=== PATIENT | female | born 1950 | race Hispanic/Latino ===

== ENCOUNTER 2016-08-17 17:34 | Inpatient (IN) | payer MEDICARE ==
--- NOTE | 2016-08-17 18:04 | Emergency Department Report ---
ED Palpitations HPI - General Chief Complaint: Arrhythmia/Palpitations Stated Complaint: HEART RACING Time Seen by Provider: 08/17/16 17:56 Source: patient Mode of arrival: Ambulatory Limitations: No Limitations - History of Present Illness Initial Comments: Patient is a 66-year-old female with history of diabetes, hypertension, A. fib, CABG with a permanent pacemaker presenting today because of palpitations. Patient states that she often gets these symptoms are not completely ER before to receive IV medication. She has been having multiple episodes these about once a week and usually improves with taking her metoprolol for today it has persisted and gotten worse. She also is has associated nausea without chest pain or shortness of breath. - Related Data Home Medications Medication Instructions Recorded Confirmed Last Taken Omeprazole 20 mg PO DAILY 01/10/16 06/02/16 06/02/16 Previous Rx's Medication Instructions Recorded Last Taken Type Glimepiride [Amaryl] 2 mg PO QAM #30 tablet 01/11/16 06/02/16 Rx Lisinopril [Zestril TAB] 20 mg PO DAILY #30 tablet 01/11/16 06/02/16 Rx metFORMIN [Glucophage] 1,000 mg PO BID #60 tablet 01/11/16 06/02/16 Rx Aspirin [Aspirin BABY CHEW TAB] 81 mg PO QDAY #30 tab.chew 05/04/16 06/02/16 Rx Dabigatran [Pradaxa] 150 mg PO BID #60 capsule 05/04/16 06/02/16 Rx Metoprolol [Lopressor TAB] 50 mg PO BID #60 tablet 05/04/16 06/02/16 Rx Ciprofloxacin HCl [Ciprofloxacin 500 mg PO BID #10 tablet 06/04/16 Unknown Rx TAB] Gabapentin [Neurontin] 300 mg PO TID #90 capsule 06/04/16 Unknown Rx HYDROcodone/APAP 7.5-325 [[place] 1 each PO Q6H PRN #12 tablet 06/04/16 Unknown Rx 7.5-325 mg TAB] Colchicine [Colcrys] 0.6 mg PO BID #10 tablet 06/05/16 Unknown Rx Allergies Allergy/AdvReac Type Severity Reaction Status Date / Time gabapentin Allergy Unknown Verified 08/17/16 17:53 ED Review of Systems ROS: Stated complaint: HEART RACING Other details as noted in HPI Comment: All other systems reviewed and negative Constitutional: malaise. denies: chills, fever ENT: denies: throat pain Respiratory: denies: cough Cardiovascular: palpitations. denies: chest pain Gastrointestinal: nausea. denies: abdominal pain, vomiting Skin: denies: rash Psychiatric: denies: anxiety ED Past Medical Hx - Past Medical History Hx Hypertension: Yes Hx Heart Attack/AMI: No Hx Congestive Heart Failure: Yes Hx Diabetes: Yes Hx Deep Vein Thrombosis: No Hx Pulmonary Embolism: No Hx GERD: Yes Hx Liver Disease: No Hx Renal Disease: No Hx Sickle Cell Disease: No Hx Arthritis: Yes Hx Seizures: Yes Hx Asthma: No Hx COPD: No Hx Tuberculosis: No Hx Dementia: No Hx HIV: No Additional medical history: Pacemaker - Surgical History Hx Coronary Stent: Yes Hx Open Heart Surgery: Yes (CABG 2013) Hx Pacemaker: Yes Hx Internal Defibrillator: Yes Hx Cholecystectomy: No Hx Appendectomy: No Hx Breast Surgery: No Additional Surgical History: CABG x 4, hysterectomy. by pass x 4 at [facility] - Social History Smoking Status: Never Smoker - Medications Home Medications: Home Medications Medication Instructions Recorded Confirmed Last Taken Type Omeprazole 20 mg PO DAILY 01/10/16 06/02/16 06/02/16 History Glimepiride [Amaryl] 2 mg PO QAM #30 tablet 01/11/16 06/02/16 06/02/16 Rx Lisinopril [Zestril TAB] 20 mg PO DAILY #30 tablet 01/11/16 06/02/16 06/02/16 Rx metFORMIN [Glucophage] 1,000 mg PO BID #60 tablet 01/11/16 06/02/16 06/02/16 Rx Aspirin [Aspirin BABY CHEW TAB] 81 mg PO QDAY #30 tab.chew 05/04/16 06/02/16 Rx Dabigatran [Pradaxa] 150 mg PO BID #60 capsule 05/04/16 06/02/16 06/02/16 Rx Metoprolol [Lopressor TAB] 50 mg PO BID #60 tablet 05/04/16 06/02/16 06/02/16 Rx Ciprofloxacin HCl [Ciprofloxacin 500 mg PO BID #10 tablet 06/04/16 Unknown Rx TAB] Gabapentin [Neurontin] 300 mg PO TID #90 capsule 06/04/16 Unknown Rx HYDROcodone/APAP 7.5-325 [[place] 1 each PO Q6H PRN #12 tablet 06/04/16 Unknown Rx 7.5-325 mg TAB] Colchicine [Colcrys] 0.6 mg PO BID #10 tablet 06/05/16 Unknown Rx ED Physical Exam - General Limitations: No Limitations - Head Head exam: Present: atraumatic - Eye Eye exam: Present: normal appearance - ENT ENT exam: Present: normal exam - Respiratory Respiratory exam: Present: normal lung sounds bilaterally - Cardiovascular Cardiovascular Exam: Present: other (tachycardic, regular) - GI/Abdominal GI/Abdominal exam: Present: soft. Absent: distended, tenderness - Neurological Exam Neurological exam: Present: alert, oriented X3 - Psychiatric Psychiatric exam: Present: normal affect - Skin Skin exam: Present: intact ED Course Vital Signs 08/17/16 08/17/16 08/17/16 17:47 17:54 18:00 Temperature 97.7 F Pulse Rate 140 H 137 H 138 H Respiratory 18 11 L 19 Rate Blood Pressure 147/108 163/108 Blood Pressure [Right] O2 Sat by Pulse 98 97 Oximetry 08/17/16 08/17/16 08/17/16 18:03 18:15 18:33 Temperature 98.5 F Pulse Rate 138 H 140 H 89 Respiratory 15 22 11 L Rate Blood Pressure 163/108 115/63 Blood Pressure 168/100 [Right] O2 Sat by Pulse 98 98 100 Oximetry 08/17/16 08/17/16 08/17/16 18:35 18:37 18:41 Temperature Pulse Rate 83 80 81 Respiratory 14 16 Rate Blood Pressure 115/63 115/63 115/63 Blood Pressure [Right] O2 Sat by Pulse 99 100 Oximetry 08/17/16 08/17/16 08/17/16 18:59 19:01 19:30 Temperature 98.8 F Pulse Rate 109 H 79 89 Respiratory 15 15 14 Rate Blood Pressure 115/63 115/63 Blood Pressure 115/63 [Right] O2 Sat by Pulse 99 99 99 Oximetry 08/17/16 20:35 Temperature Pulse Rate 139 H Respiratory Rate Blood Pressure 131/91 Blood Pressure [Right] O2 Sat by Pulse Oximetry - Reevaluation(s) Reevaluation #1: 08/17/16 19:05 She reassessed at bedside. Heart rate has improved now to 80s. Repeat EKG shows atrial flutter with rate controlled at 80, appears to be paced ED Medical Decision Making - Lab Data Result diagrams: 08/17/16 18:09 08/17/16 18:09 - Medical Decision Making EKG shows tachycardia at rate of 138, difficult to tell if this is atrial flutter with RVR or sinus tachycardia. There are ST depressions in the lateral and inferior leads without any reciprocal changes, no ST elevations Previous admission patient was able to break her tachycardia with IV Cardizem IV, give Cardizem IV 20 mg, labs and chest x-ray as well as UA Will admit due to atrial flutter with rvr Critical Care Time: Yes Critical care time in (mins) excluding proc time.: 30 Critical care attestation.: If time is entered above; I have spent that time in minutes in the direct care of this critically ill patient, excluding procedure time. Critical Care Time: 30 mins ED Disposition Clinical Impression: Atrial flutter with rapid ventricular response Disposition: OP ADMITTED IP TO THIS HOSP Is pt being admited?: Yes Does the pt Need Aspirin: No Condition: Serious Time of Disposition: 21:45 (Spoke to Dr. Donaldson, Hospitalist)
[2016-08-17] MEDS ORDERED: CARDIZEM IV ONE (18:06)
[2016-08-17 18:24] LABS: Basophils % (Auto) 0.3 % (0.0-1.8); Eosinophils % (Auto) 0.6 % (0.0-4.3); Hematocrit 34.8 % (30.3-42.9); Hemoglobin 11.3 gm/dl (10.1-14.3); Mean Corpuscular HGB Conc 33 % (30-34); Mean Corpuscular Hemoglobin 29 pg (28-32); Mean Corpuscular Volume 90 fl (79-97); Platelet Count 261 K/mm3 (140-440); Red Blood Count 3.86 M/mm3 (3.65-5.03); Red Cell Distribution Width 15.3 % (13.2-15.2); White Blood Count 8.9 K/mm3 (4.5-11.0)
[2016-08-17 18:46] LABS: BUN/Creatinine Ratio 16.36; Blood Urea Nitrogen 18 mg/dL (7-17); Calcium 9.3 mg/dL (8.4-10.2); Carbon Dioxide 22 mmol/L (22-30); Chloride 99.9 mmol/L (98-107); Glucose 160 mg/dL (65-100); Potassium 4.7 mmol/L (3.6-5.0); Sodium 139 mmol/L (137-145)
[2016-08-17 18:47] LABS: Anion Gap 22 mmol/L
[2016-08-17] MEDS ORDERED: NACL 0.9% 500 ML 500 ML ONE (19:00)
[2016-08-17] MEDS ORDERED: CARDIZEM PO ONE (19:06)
[2016-08-17] MEDS ORDERED: NACL 0.9% 500 ML 500 ML IV SCH (20:00)
[2016-08-17] MEDS ORDERED: TYLENOL PO ONE (22:34)
--- NOTE | 2016-08-17 23:18 | Admit Criteria Form ---
Admission Criteria Documentation: CARDIAC ARRHYTHMIA Clinical Indications for Inpatient Care (Place 'X' for any and all applicable criteria): Ongoing inpatient care for cardiac arrhythmia needed as indicated by ANY ONE of the following(1)(2)(3)(4)(7) : [ X]I. Vital sign abnormality secondary to arrhythmia [ ]II. Patient has implantable cardioverter-defibrillator that has fired more than once within past 24 hours or needs immediate adjustment of settings that cannot be done other than in inpatient setting. [ ]III. Altered mental status [ ]IV. Resuscitated or aborted ventricular fibrillation or ventricular tachycardia in patient without implantable cardioverter- defibrillator [ ]V. Initiation of antiarrhythmic drug therapy is needed in patient at high risk of adverse effects as indicated by ANY ONE of the following: [ ]a) Significant structural heart disease (e.g., reduced ejection fraction, congenital heart disease, valvular heart disease) [ ]b) Prolonged QT interval [ ]c) Underlying sinus node or atrioventricular conduction disturbances [ ]d) Need for treatment with antiarrhythmic drugs that have significant proarrhythmic potential (e.g., dofetilide, sotalol, procainamide) [ ]. Acute myocardial ischemia as a consequence or suspected cause of arrhythmia [ ]VII. Syncope secondary to arrhythmia [ ]VIII. Heart failure (eg, pulmonary edema) secondary to arrhythmia) (26)(27) [ ]IX. Patient has implantable cardioverter defibrillator that has fired more than once within past 24hr or needs immediate adjustment of settings that cannot be done other than in inpatient setting.(8) [ ]X. Sustained (30 seconds or more of ventricular rhythm at more than 100 beats per minute) ventricular tachycardia and ANY ONE of the following: [ ]a) No previous known history of sustained ventricular tachycardia [ ]b) Structural heart disease (eg, reduced ejection fraction, hypertrophic cardiomyopathy, severe valvular disease) and without implantable cardioverter-defibrillator(24)(32)(33) [ ]c) Need for treatment of drug toxicity (eg, digitalis toxicity)(34 ) [ ]d) Need for electrical cardioversion Extended stay beyond goal length of stay may be needed for [ ]a) Hemodynamic stability [ ]b) Arrhythmia evaluation completed [ ]c) Reversible causes of arrhythmia eliminated or mitigated [ ]d) Specific antiarrhythmia treatment initiated as appropriate [ ]e) Anticoagulation requirements addressed (or anticoagulation not required). [ ]f) Medical comorbidities manageable at lower level of care The original [facility] content created by [facility] has been revised. The portions of the content which have been revised are identified through the use of italic text or in bold, and [facility] has neither reviewed nor approved the modified material. All other unmodified content is copyright [facility]. Please see references footnoted in the original [facility] edition 2016 Admission Criteria Met: Yes
[2016-08-18] MEDS ORDERED: D50W (25GM) IV PRN (00:29)
--- NOTE | 2016-08-18 00:38 | History and Physical Report ---
History of Present Illness Date of examination: 08/17/16 Date of admission: 08/17/2014 Chief complaint: Palpitations History of present illness: Patient is a 66-year-old female with history of diabetes, hypertension, A. fib, CABG with a permanent pacemaker presenting today because of palpitations. Patient stated the symptoms started she took her metoprolol and lisinopril which didn't help her much. She called her kst operator's office and recommended her to come to emergency department. She also is has associated nausea without chest pain or shortness of breath. She stated she had similar symptoms previously and was admitted and treated with IV medications. In the emergency department had was controlled. Denied fevers, chills. Patient is on Pradaxa. REVIEW OF SYSTEMS: GENERAL: no weight change, no fatigue, no fever HEAD: no head ache EYES: no blurry vision, no acute visual loss EARS: no hearing loss, no discharge, no earache NOSE: no stuffiness, no sneezing, no discharge MOUTH, THROAT AND NECK: no bleeding gums, no sore throat, no swollen neck CARDIAC: no dyspnea on exertion, no orthopnea, no PND, no edema, no chest pain RESPIRATORY: no shortness of breath, no wheeze, no cough, no sputum, no hemoptysis, no asthma GI: no decreased appetite, no nausea, no vomiting, no dysphagia, no diarrhea, no constipation, no abdominal pain URINARY: no change in frequency, no urgency, no polyuria, no hematuria, no incontinence MUSCULOSKELETAL: no muscle weakness, no pain, no joint stiffness NEUROLOGIC: no loss of sensation/numbness, no tingling, no tremors, no weakness/ paralysis HEMATOLOGIC: no anemia, no easy bruising SKIN: no rashes ENDOCRINE: no heat/cold intolerance, no polyuria, no polydipsia, no thyroid problems, no diabetes PSYCHIATRIC: no anxiety, no depression, no suicidal ideations Past History Past Medical History: atrial fib, diabetes, other (hiatal hernia) Past Surgical History: CABG, Other (pacemaker placement) Social history: full code. denies: smoking, alcohol abuse, prescription drug abuse, IV drug use Family history: cancer (mother), stroke (mother) Medications and Allergies Allergies Allergy/AdvReac Type Severity Reaction Status Date / Time gabapentin Allergy Unknown Verified 08/17/16 17:53 Home Medications Medication Instructions Recorded Confirmed Last Taken Type Omeprazole 20 mg PO DAILY 01/10/16 08/18/16 06/02/16 History metFORMIN [Glucophage] 1,000 mg PO BID #60 tablet 01/11/16 08/18/16 06/02/16 Rx Aspirin [Aspirin BABY CHEW TAB] 81 mg PO QDAY #30 tab.chew 05/04/16 08/18/16 Rx Dabigatran [Pradaxa] 150 mg PO BID #60 capsule 05/04/16 08/18/16 06/02/16 Rx Colchicine [Colcrys] 0.6 mg PO BID #10 tablet 06/05/16 08/18/16 Unknown Rx Glimepiride [Amaryl] 10 mg PO QAM 08/18/16 08/18/16 Unknown History Lisinopril [Zestril] 20 mg PO BID 08/18/16 08/18/16 Unknown History Metoprolol [Lopressor TAB] 50 mg PO QHS 08/18/16 08/18/16 Unknown History Active Meds: Active Medications Acetaminophen/Hydrocodone Bitart ([place] 7.5/325) 1 each PO Q6H PRN PRN Reason: Pain, Moderate (4-6) Aspirin (Baby Aspirin) 81 mg PO QDAY [facility] Colchicine (Colcrys) 0.6 mg PO BID [facility] Dabigatran (Pradaxa) 150 mg PO BID [facility] TO [facility] Dextrose (D50w (25gm)) 50 ml IV PRN PRN PRN Reason: Hypoglycemia Glimepiride (Amaryl) 2 mg PO QAM [facility] Sodium Chloride (Nacl 0.9% 500 Ml) 500 mls @ 250 mls/hr IV DIRECT [facility] Last Admin: 08/17/16 20:38 Dose: 250 mls/hr Insulin Aspart (Novolog) 0 units SUB-Q QHS [facility] PRN Reason: Protocol Lisinopril (Zestril) 20 mg PO DAILY [facility] Metoprolol Tartrate (Lopressor) 50 mg PO BID [facility] Miscellaneous Medication (Omeprazole) 20 mg PO DAILY [facility] Exam - Physical Exam Narrative exam: Not in cardiopulmonary distress. The patient appeared well nourished and normally developed. Vital signs as documented. Head exam is unremarkable. No scleral icterus . Neck is without jugular venous distension, thyromegaly, or carotid bruits. Lungs are clear to auscultation. Cardiac exam reveals an irregularly irregular heart rate. Abdominal exam reveals normal bowel sounds, no masses, no organomegaly and no aortic enlargement. Extremities are nonedematous and both femoral and pedal pulses are normal. RECORD SEARCHER: Alert and oriented 3. No focal weakness. - Constitutional Vitals: Temp Pulse Resp BP Pulse Ox 98.8 F 139 H 14 131/91 99 08/17/16 19:30 08/17/16 20:35 08/17/16 19:30 08/17/16 20:35 08/17/16 19:30 Results - Labs CBC & Chem 7: 08/17/16 18:09 08/17/16 18:09 Labs: Laboratory Last Values WBC 8.9 K/mm3 (4.5-11.0) 08/17/16 18:09 RBC 3.86 M/mm3 (3.65-5.03) 08/17/16 18:09 Hgb 11.3 gm/dl (10.1-14.3) 08/17/16 18:09 Hct 34.8 % (30.3-42.9) 08/17/16 18:09 MCV 90 fl (79-97) 08/17/16 18:09 MCH 29 pg (28-32) 08/17/16 18:09 MCHC 33 % (30-34) 08/17/16 18:09 RDW 15.3 % (13.2-15.2) H 08/17/16 18:09 Plt Count 261 K/mm3 (140-440) 08/17/16 18:09 Lymph % (Auto) 31.9 % (13.4-35.0) 08/17/16 18:09 [place] % (Auto) 6.0 % (0.0-7.3) 08/17/16 18:09 Eos % (Auto) 0.6 % (0.0-4.3) 08/17/16 18:09 Baso % (Auto) 0.3 % (0.0-1.8) 08/17/16 18:09 Lymph # 2.8 K/mm3 (1.2-5.4) 08/17/16 18:09 [place] # 0.5 K/mm3 (0.0-0.8) 08/17/16 18:09 Eos # 0.1 K/mm3 (0.0-0.4) 08/17/16 18:09 Baso # 0.0 K/mm3 (0.0-0.1) 08/17/16 18:09 Seg Neutrophils % 61.2 % (40.0-70.0) 08/17/16 18:09 Seg Neutrophils # 5.5 K/mm3 (1.8-7.7) 08/17/16 18:09 Sodium 139 mmol/L (137-145) 08/17/16 18:09 Potassium 4.7 mmol/L (3.6-5.0) 08/17/16 18:09 Chloride 99.9 mmol/L (98-107) 08/17/16 18:09 Carbon Dioxide 22 mmol/L (22-30) 08/17/16 18:09 Anion Gap 22 mmol/L 08/17/16 18:09 BUN 18 mg/dL (7-17) H 08/17/16 18:09 Creatinine 1.1 mg/dL (0.7-1.2) 08/17/16 18:09 Estimated GFR 50 ml/min 08/17/16 18:09 BUN/Creatinine Ratio 16.36 % 08/17/16 18:09 Glucose 160 mg/dL (65-100) H 08/17/16 18:09 POC Glucose 160 (70-105) H 08/17/16 22:38 Calcium 9.3 mg/dL (8.4-10.2) 08/17/16 18:09 Troponin T < 0.010 ng/mL (0.00-0.029) 08/17/16 23:46 - Imaging and Cardiology EKG: image reviewed (irregularly irregular heartrate, paced rhythm.) Assessment and Plan Assessment and plan: A.fib/ flutter with RVR Diabetes mellitus type 2 Gout Neuropathy HTN - Patient was given a dose of IV Cardizem which controls her HR - Presumed her met home medications - Hold metformin, sliding scale insulin - Cardiology consult DVT prophylaxis: She is already on Pradaxa Disposition: Admitted to telemetry unit Advance Directives: Yes VTE prophylaxis?: Chemical Plan of care discussed with patient/family: Yes
[2016-08-18] MEDS: PRADAXA PO SCH ×3 (01:40→22:03)
[2016-08-18 03:53] LABS: Bacteria,Urine 4+ /HPF (Negative); Bilirubin,Urine NEG (Negative); Blood,Urine NEG (Negative); Ketones,Urine NEG (Negative); Leukocyte Esterase,Urine SM (Negative); Mucus,Urine FEW /HPF; Nitrite,Urine NEG (Negative); Protein,Urine <15 mg/dL mg/dL (Negative); Urobilinogen,Urine < 2.0 mg/dL (<2.0)
[2016-08-18] MEDS ORDERED: CARDIZEM PO ONE (05:08)
[2016-08-18] MEDS: AMARYL PO SCH (08:30)
--- NOTE | 2016-08-18 09:25 | XRay Report ---
AP CHEST :08/17/16 17:34:00 CLINICAL: Palpitations. Shortness of breath. COMPARISON:06/02/16 FINDINGS: The heart is normal size. Pacer leads in heart. Normal pulmonary vessels. The lungs are normally expanded and clear. Median sternotomy wires. IMPRESSION: No acute cardiopulmonary process.
[2016-08-18] MEDS: BABY ASPIRIN PO SCH (09:35)
[2016-08-18] MEDS ORDERED: COLCRYS PO SCH (10:00)
[2016-08-18] MEDS: ZESTRIL PO SCH (10:00)
[2016-08-18] MEDS: LOPRESSOR PO SCH ×2 (10:00→22:10)
[2016-08-18] MEDS: PROTONIX PO SCH (10:56)
--- NOTE | 2016-08-18 13:15 | Consultation ---
History of Present Illness Consult date: 08/18/16 Requesting physician: SCARLETT TSE Consult reason: atrial fibrillation History of present illness: This is a 66-year-old female with a past medical history history of coronary artery disease status post CABG in 2013, paroxysmal atrial fibrillation, sick sinus syndrome with dual-chamber permanent pacemaker, peripheral arterial disease with left carotid stenosis, hypertension, diabetes, obesity, gout, and hyperlipidemia who presents to the emergency department complaining of palpitations and chest discomfort. A 12 EKG revealed atrial fibrillation with a rapid ventricular response. The patient has been taken a beta kaylynn she is also on oral anticoagulation. She reports that she has been compliant with her medications. The chest x-ray did not reveal any infiltrates or effusions. Past History Past Medical History: atrial fib, diabetes, other (hiatal hernia) Past Surgical History: CABG, Other (pacemaker placement) Social history: full code. denies: smoking, alcohol abuse, prescription drug abuse, IV drug use Family history: cancer (mother), stroke (mother) Medications and Allergies Allergies Allergy/AdvReac Type Severity Reaction Status Date / Time gabapentin Allergy Unknown Verified 08/17/16 17:53 Home Medications Medication Instructions Recorded Confirmed Last Taken Type Omeprazole 20 mg PO DAILY 01/10/16 08/18/16 06/02/16 History metFORMIN [Glucophage] 1,000 mg PO BID #60 tablet 01/11/16 08/18/16 06/02/16 Rx Aspirin [Aspirin BABY CHEW TAB] 81 mg PO QDAY #30 tab.chew 05/04/16 08/18/16 Rx Dabigatran [Pradaxa] 150 mg PO BID #60 capsule 05/04/16 08/18/16 06/02/16 Rx Colchicine [Colcrys] 0.6 mg PO BID #10 tablet 06/05/16 08/18/16 Unknown Rx Glimepiride [Amaryl] 10 mg PO QAM 08/18/16 08/18/16 Unknown History Lisinopril [Zestril] 20 mg PO BID 08/18/16 08/18/16 Unknown History Metoprolol [Lopressor TAB] 50 mg PO QHS 08/18/16 08/18/16 Unknown History Active Meds: Active Medications Acetaminophen/Hydrocodone Bitart ([place] 7.5/325) 1 each PO Q6H PRN PRN Reason: Pain, Moderate (4-6) Aspirin (Baby Aspirin) 81 mg PO QDAY [facility] Last Admin: 08/18/16 09:35 Dose: 81 mg Colchicine (Colcrys) 0.6 mg PO BID [facility] Last Admin: 08/18/16 09:36 Dose: 0.6 mg Dabigatran (Pradaxa) 150 mg PO BID [facility] Last Admin: 08/18/16 09:36 Dose: 150 mg Dextrose (D50w (25gm)) 50 ml IV PRN PRN PRN Reason: Hypoglycemia Glimepiride (Amaryl) 2 mg PO QAMDIAB [facility] Last Admin: 08/18/16 08:30 Dose: 2 mg Sodium Chloride (Nacl 0.9% 500 Ml) 500 mls @ 250 mls/hr IV DIRECT [facility] Last Admin: 08/17/16 20:38 Dose: 250 mls/hr Insulin Aspart (Novolog) 0 units SUB-Q QHS [facility] PRN Reason: Protocol Lisinopril (Zestril) 20 mg PO DAILY [facility] Last Admin: 08/18/16 10:00 Dose: 20 mg Metoprolol Tartrate (Lopressor) 50 mg PO BID [facility] Last Admin: 08/18/16 10:00 Dose: 50 mg Pantoprazole Sodium (Protonix) 20 mg PO DAILY [facility] Last Admin: 08/18/16 10:56 Dose: 20 mg Review of Systems Constitutional: no weight loss, no weight gain, no fever, no chills Ears, nose, mouth and throat: no ear pain, no ear discharge Breasts: deferred Cardiovascular: chest pain, palpitations, no orthopnea Respiratory: no shortness of breath, no dyspnea on exertion Gastrointestinal: no abdominal pain, no nausea, no vomiting Genitourinary Female: no urinary frequency, no urgency Rectal: no pain, no incontinence Musculoskeletal: no neck stiffness, no neck pain Integumentary: no rash, no pruritis Neurological: no paralysis, no weakness, no numbness Psychiatric: no anxiety, no memory loss Physical Examination Vital Signs Temp Pulse Resp BP Pulse Ox 97.7 F 140 H 18 147/108 98 08/17/16 17:47 08/17/16 17:47 08/17/16 17:47 08/17/16 17:47 08/17/16 17:47 General appearance: no acute distress HEENT: Positive: PERRL, EOMI Neck: Positive: neck supple, trachea midline Cardiac: Positive: irregularly irregular, Tachycardia Lungs: Positive: Normal Exam, clear to auscultation, Normal Breath Sounds Neuro: Positive: Grossly Intact, Cranial Nerve 2-12 Intact Abdomen: Positive: Unremarkable, Soft, Active Bowel Sounds Skin: Negative: Rash, Suspicious Lesions Extremities: Present: normal, warm. Absent: edema Results 08/17/16 18:09 08/17/16 18:09 - Imaging and Cardiology Echo: report reviewed (04/20: EF 55%, mild MR) Cardiac cath: report reviewed ([facility] 04/20: SHIELDS-->LAD: patent, SVG--> PDA: patent and OM mid 60% FFR.92, severe triple vessel disease) Assessment and Plan 66-year-old female with a past medical history of coronary artery disease status post CABG, carotid stenosis, sick sinus syndrome, paroxysmal atrial fibrillation, permanent pacemaker, hypertension, hyperlipidemia, diabetes, and obesity CAD S/P CABG '14 PAD LEFT CAROTID STENOSIS SSS/PAF S/P PPM HYPERTENSION HYPERLIPIDEMIA DIABETES OBESITY Admitted with intermittent episodes of A2 fibrillation versus atrial flutter with a rapid ventricular response. At this point I'm recommending that the patient continue her beta kaylynn we will also start amiodarone 200 mg daily. Will also obtain liver function tests and thyroid studies.
--- NOTE | 2016-08-18 15:24 | Progress Note ---
Assessment and Plan Assessment and plan: A.fib/ flutter with RVR Diabetes mellitus type 2 h/o Gout diabetic Neuropathy HTN, benign essential Plan: - Patient was given a dose of IV Cardizem in thr ER - resume her home medications - Hold metformin, continue sliding scale of insulin - Cardiology started on amioderone DVT prophylaxis: She is already on Pradaxa Disposition: home when medically stable and clear by cardiology History Interval history: Patient seen and examined. Medical records and medication list reviewed. No acute event overnight noted by the RN. Patient continue to c/o palpitation. Patient is tolerating diet. started on amioderone by grievance and appeals specialist Discussed plan of care at bedside with patient. Hospitalist Physical - Physical exam Narrative exam: GENERAL: elderly female lying on bed appeared to be in no discomfort. HEENT: Normocephalic. Atraumatic. No conjunctival congestion or icterus. Patient has moist mucous membranes. NECK: Supple. Trachea midline. CHEST/LUNGS: Clear to auscultated bilaterally, breathing nonlabored. No wheezes crackles or rhonchi. HEART/CARDIOVASCULAR: irregular in rate and rhythm. S1 and S2 positive. ABDOMEN: Abdomen is soft, nontender. Patient has normal bowel sounds. SKIN: There is no rash. Warm and dry. NEURO: No focal motor deficit. Follows command. MUSCULOSKELETAL: No joint effusion or tenderness. EXTRIMITY: No edema, no cyanosis or clubbing. PSYCH: Cooperative. - Constitutional Vitals: Temp Pulse Resp BP Pulse Ox 98.3 F 85 15 128/89 96 08/18/16 10:01 08/18/16 14:42 08/18/16 14:01 08/18/16 14:01 08/18/16 14:01 General appearance: Present: no acute distress Results - Labs CBC & Chem 7: 08/17/16 18:09 08/19/16 07:56 Labs: Laboratory Last Values WBC 8.9 K/mm3 (4.5-11.0) 08/17/16 18:09 RBC 3.86 M/mm3 (3.65-5.03) 08/17/16 18:09 Hgb 11.3 gm/dl (10.1-14.3) 08/17/16 18:09 Hct 34.8 % (30.3-42.9) 08/17/16 18:09 MCV 90 fl (79-97) 08/17/16 18:09 MCH 29 pg (28-32) 08/17/16 18:09 MCHC 33 % (30-34) 08/17/16 18:09 RDW 15.3 % (13.2-15.2) H 08/17/16 18:09 Plt Count 261 K/mm3 (140-440) 08/17/16 18:09 Lymph % (Auto) 31.9 % (13.4-35.0) 08/17/16 18:09 [place] % (Auto) 6.0 % (0.0-7.3) 08/17/16 18:09 Eos % (Auto) 0.6 % (0.0-4.3) 08/17/16 18:09 Baso % (Auto) 0.3 % (0.0-1.8) 08/17/16 18:09 Lymph # 2.8 K/mm3 (1.2-5.4) 08/17/16 18:09 [place] # 0.5 K/mm3 (0.0-0.8) 08/17/16 18:09 Eos # 0.1 K/mm3 (0.0-0.4) 08/17/16 18:09 Baso # 0.0 K/mm3 (0.0-0.1) 08/17/16 18:09 Seg Neutrophils % 61.2 % (40.0-70.0) 08/17/16 18:09 Seg Neutrophils # 5.5 K/mm3 (1.8-7.7) 08/17/16 18:09 Sodium 139 mmol/L (137-145) 08/17/16 18:09 Potassium 4.7 mmol/L (3.6-5.0) 08/17/16 18:09 Chloride 99.9 mmol/L (98-107) 08/17/16 18:09 Carbon Dioxide 22 mmol/L (22-30) 08/17/16 18:09 Anion Gap 22 mmol/L 08/17/16 18:09 BUN 18 mg/dL (7-17) H 08/17/16 18:09 Creatinine 1.1 mg/dL (0.7-1.2) 08/17/16 18:09 Estimated GFR 50 ml/min 08/17/16 18:09 BUN/Creatinine Ratio 16.36 % 08/17/16 18:09 Glucose 160 mg/dL (65-100) H 08/17/16 18:09 POC Glucose 229 (70-105) H 08/18/16 10:08 Calcium 9.3 mg/dL (8.4-10.2) 08/17/16 18:09 Troponin T < 0.010 ng/mL (0.00-0.029) 08/17/16 23:46 Urine Color Yellow (Yellow) 08/18/16 01:45 Urine Turbidity Clear (Clear) 08/18/16 01:45 Urine pH 5.0 (5.0-7.0) 08/18/16 01:45 Ur Specific [place] 1.014 (1.003-1.030) 08/18/16 01:45 Urine Protein <15 mg/dl mg/dL (Negative) 08/18/16 01:45 Urine Glucose (UA) Neg mg/dL (Negative) 08/18/16 01:45 Urine Ketones Neg mg/dL (Negative) 08/18/16 01:45 Urine Blood Neg (Negative) 08/18/16 01:45 Urine Nitrite Neg (Negative) 08/18/16 01:45 Urine Bilirubin Neg (Negative) 08/18/16 01:45 Urine Urobilinogen < 2.0 mg/dL (<2.0) 08/18/16 01:45 Ur Leukocyte Esterase Sm (Negative) 08/18/16 01:45 Urine WBC (Auto) 15.0 /HPF (0.0-6.0) H 08/18/16 01:45 Urine RBC (Auto) 3.0 /HPF (0.0-6.0) 08/18/16 01:45 U Epithel Cells (Auto) 5.0 /HPF (0-13.0) 08/18/16 01:45 Urine Bacteria (Auto) 4+ /HPF (Negative) 08/18/16 01:45 Urine Mucus Few /HPF 08/18/16 01:45
[2016-08-18] MEDS: CORDARONE PO SCH ×2 (15:31→22:10)
[2016-08-18] MEDS: NORCO 7.5/325 PO PRN (17:33)
[2016-08-18] MEDS: NOVOLOG SUB-Q SCH (23:00)
[2016-08-18] MEDS ORDERED: TYLENOL PO PRN (23:32)
[2016-08-19 10:37] LABS: Albumin 3.8 g/dL (3.9-5); Albumin/Globulin Ratio 1.1 %; BUN/Creatinine Ratio 16.66; Bilirubin,Total 0.2 mg/dL (0.1-1.2); Calcium 9.2 mg/dL (8.4-10.2); Chloride 101.3 mmol/L (98-107); Potassium 4.3 mmol/L (3.6-5.0); Total Protein 7.3 g/dL (6.3-8.2)
[2016-08-19] MEDS: AMARYL PO SCH (10:37)
[2016-08-19] MEDS: PRADAXA PO SCH ×2 (10:38→22:53)
[2016-08-19] MEDS: PROTONIX PO SCH (10:40)
[2016-08-19] MEDS: LOPRESSOR PO SCH ×2 (10:40→22:52)
[2016-08-19] MEDS: ZESTRIL PO SCH (10:41)
[2016-08-19] MEDS: CORDARONE PO SCH ×2 (10:41→22:53)
[2016-08-19] MEDS: BABY ASPIRIN PO SCH (10:42)
--- NOTE | 2016-08-19 13:50 | Progress Note ---
Assessment and Plan 66-year-old female with a past medical history of coronary artery disease status post CABG, carotid stenosis, sick sinus syndrome, paroxysmal atrial fibrillation, permanent pacemaker, hypertension, hyperlipidemia, diabetes, and obesity Atrial fibrillation with rapid ventricular response Continue amiodarone 200 mg twice a day and metoprolol Patient will need to be discharged home on amiodarone 200 mg once a day She will follow-up with Dr. Yara Womack, Obtain a 12 EKG tomorrow one day prior to discharge Continue oral anticoagulation If patient remains in sinus rhythm overnight with likely discharge Saturday CAD S/P CABG ' PAD LEFT CAROTID STENOSIS SSS/PAF S/P PPM HYPERTENSION HYPERLIPIDEMIA DIABETES OBESITY Subjective Date of service: 08/19/16 Principal diagnosis: atrial fibrillation with rapid ventricular response Interval history: Patient is sleeping in bed. She feels much better. She denies any palpitations or chest pain. Objective Vital Signs Temp Pulse Pulse Pulse Pulse Resp BP 08/19/16 10:41 88/57 08/19/16 10:40 88/57 08/19/16 08:17 08/19/16 08:00 97.5 F L 67 20 08/19/16 06:36 62 08/19/16 05:37 97.5 F L 61 20 08/19/16 00:58 97.7 F 79 20 08/18/16 22:10 77 118/71 08/18/16 21:39 08/18/16 21:21 97.2 F L 82 20 08/18/16 19:13 79 08/18/16 18:27 98.4 F 91 H 18 128/80 08/18/16 18:21 84 16 128/80 08/18/16 18:13 104/80 08/18/16 17:41 101 H 13 104/80 08/18/16 17:33 18 08/18/16 17:31 104/80 08/18/16 16:00 86 10 L 106/62 08/18/16 15:19 80 25 H 97/62 08/18/16 14:49 27 H 120/71 08/18/16 14:42 85 08/18/16 14:01 100 H 15 128/89 BP BP Pulse Ox 08/19/16 10:41 08/19/16 10:40 08/19/16 08:17 97 08/19/16 08:00 88/60 98 08/19/16 06:36 101/58 08/19/16 05:37 93/57 96 08/19/16 00:58 113/71 98 08/18/16 22:10 08/18/16 21:39 95 08/18/16 21:21 102/65 95 08/18/16 19:13 08/18/16 18:27 96 08/18/16 18:21 96 08/18/16 18:13 96 08/18/16 17:41 95 08/18/16 17:33 08/18/16 17:31 08/18/16 16:00 98 08/18/16 15:19 95 08/18/16 14:49 08/18/16 14:42 08/18/16 14:01 96 - Physical Examination HEENT: Positive: PERRL, EOMI Neck: Positive: neck supple, trachea midline Cardiac: Positive: Reg Rate and Rhythm, Regular Rate Lungs: Positive: Normal Exam Neuro: Positive: Grossly Intact, Cranial Nerve 2-12 Intact Abdomen: Positive: Unremarkable, Soft, Active Bowel Sounds Skin: Negative: Rash, Suspicious Lesions Extremities: Present: normal, warm. Absent: edema - Labs and Meds Cardiac Enzymes 08/19/16 Range/Units 07:56 AST 25 (5-40) units/L Comprehensive Metabolic Panel 08/19/16 Range/Units 07:56 Sodium 141 (137-145) mmol/L Potassium 4.3 (3.6-5.0) mmol/L Chloride 101.3 (98-107) mmol/L Carbon Dioxide 24 (22-30) mmol/L BUN 20 H (7-17) mg/dL Creatinine 1.2 (0.7-1.2) mg/dL Glucose 91 (65-100) mg/dL Calcium 9.2 (8.4-10.2) mg/dL AST 25 (5-40) units/L ALT 18 (7-56) units/L Alkaline Phosphatase 89 (35-129) units/L Total Protein 7.3 (6.3-8.2) g/dL Albumin 3.8 L (3.9-5) g/dL - Imaging and Cardiology EKG: image reviewed (irregularly irregular heartrate, paced rhythm.) Echo: report reviewed (04/20: EF 55%, mild MR) Cardiac cath: report reviewed ([facility] 04/20: SHIELDS-->LAD: patent, SVG--> PDA: patent and OM mid 60% FFR.92, severe triple vessel disease) - Telemetry EKG Rhythm: Sinus Rhythm
--- NOTE | 2016-08-19 16:46 | Progress Note ---
Assessment and Plan Assessment and plan: A.fib/ flutter with RVR Diabetes mellitus type 2 h/o Gout diabetic Neuropathy HTN, benign essential Plan: - Patient was given a dose of IV Cardizem in the ER - cont her home medications - cont to Hold metformin, continue sliding scale of insulin - Cardiology started on amioderone, cont to monitor DVT prophylaxis: She is already on Pradaxa Disposition: home likely tomorrow. History Interval history: Patient seen and examined. Medical records and medication list reviewed. No acute event overnight noted by the RN. Patient continue to c/o palpitation. Patient is tolerating diet. started on amioderone by it support consultant, plan to discharge tomorrow Discussed plan of care at bedside with patient. Hospitalist Physical - Physical exam Narrative exam: GENERAL: elderly female lying on bed appeared to be in no discomfort. HEENT: Normocephalic. Atraumatic. No conjunctival congestion or icterus. Patient has moist mucous membranes. NECK: Supple. Trachea midline. CHEST/LUNGS: Clear to auscultated bilaterally, breathing nonlabored. No wheezes crackles or rhonchi. HEART/CARDIOVASCULAR: irregular in rate and rhythm. S1 and S2 positive. ABDOMEN: Abdomen is soft, nontender. Patient has normal bowel sounds. SKIN: There is no rash. Warm and dry. NEURO: No focal motor deficit. Follows command. MUSCULOSKELETAL: No joint effusion or tenderness. EXTRIMITY: No edema, no cyanosis or clubbing. PSYCH: Cooperative. - Constitutional Vitals: Temp Pulse Resp BP Pulse Ox 97.4 F L 69 20 106/58 97 08/19/16 11:30 08/19/16 11:30 08/19/16 11:30 08/19/16 11:30 08/19/16 11:30 General appearance: Present: no acute distress Results - Labs CBC & Chem 7: 08/17/16 18:09 08/19/16 07:56 Labs: Laboratory Last Values WBC 8.9 K/mm3 (4.5-11.0) 08/17/16 18:09 RBC 3.86 M/mm3 (3.65-5.03) 08/17/16 18:09 Hgb 11.3 gm/dl (10.1-14.3) 08/17/16 18:09 Hct 34.8 % (30.3-42.9) 08/17/16 18:09 MCV 90 fl (79-97) 08/17/16 18:09 MCH 29 pg (28-32) 08/17/16 18:09 MCHC 33 % (30-34) 08/17/16 18:09 RDW 15.3 % (13.2-15.2) H 08/17/16 18:09 Plt Count 261 K/mm3 (140-440) 08/17/16 18:09 Lymph % (Auto) 31.9 % (13.4-35.0) 08/17/16 18:09 [place] % (Auto) 6.0 % (0.0-7.3) 08/17/16 18:09 Eos % (Auto) 0.6 % (0.0-4.3) 08/17/16 18:09 Baso % (Auto) 0.3 % (0.0-1.8) 08/17/16 18:09 Lymph # 2.8 K/mm3 (1.2-5.4) 08/17/16 18:09 [place] # 0.5 K/mm3 (0.0-0.8) 08/17/16 18:09 Eos # 0.1 K/mm3 (0.0-0.4) 08/17/16 18:09 Baso # 0.0 K/mm3 (0.0-0.1) 08/17/16 18:09 Seg Neutrophils % 61.2 % (40.0-70.0) 08/17/16 18:09 Seg Neutrophils # 5.5 K/mm3 (1.8-7.7) 08/17/16 18:09 Sodium 141 mmol/L (137-145) 08/19/16 07:56 Potassium 4.3 mmol/L (3.6-5.0) 08/19/16 07:56 Chloride 101.3 mmol/L (98-107) 08/19/16 07:56 Carbon Dioxide 24 mmol/L (22-30) 08/19/16 07:56 Anion Gap 20 mmol/L 08/19/16 07:56 BUN 20 mg/dL (7-17) H 08/19/16 07:56 Creatinine 1.2 mg/dL (0.7-1.2) 08/19/16 07:56 Estimated GFR 45 ml/min 08/19/16 07:56 BUN/Creatinine Ratio 16.66 % 08/19/16 07:56 Glucose 91 mg/dL (65-100) 08/19/16 07:56 POC Glucose 285 (70-105) H 08/18/16 22:01 Calcium 9.2 mg/dL (8.4-10.2) 08/19/16 07:56 Total Bilirubin 0.2 mg/dL (0.1-1.2) 08/19/16 07:56 AST 25 units/L (5-40) 08/19/16 07:56 ALT 18 units/L (7-56) 08/19/16 07:56 Alkaline Phosphatase 89 units/L (35-129) 08/19/16 07:56 Troponin T < 0.010 ng/mL (0.00-0.029) 08/17/16 23:46 Total Protein 7.3 g/dL (6.3-8.2) 08/19/16 07:56 Albumin 3.8 g/dL (3.9-5) L 08/19/16 07:56 Albumin/Globulin Ratio 1.1 % 08/19/16 07:56 TSH 2.080 mlU/mL (0.270-4.200) 08/19/16 07:56 Urine Color Yellow (Yellow) 08/18/16 01:45 Urine Turbidity Clear (Clear) 08/18/16 01:45 Urine pH 5.0 (5.0-7.0) 08/18/16 01:45 Ur Specific [place] 1.014 (1.003-1.030) 08/18/16 01:45 Urine Protein <15 mg/dl mg/dL (Negative) 08/18/16 01:45 Urine Glucose (UA) Neg mg/dL (Negative) 08/18/16 01:45 Urine Ketones Neg mg/dL (Negative) 08/18/16 01:45 Urine Blood Neg (Negative) 08/18/16 01:45 Urine Nitrite Neg (Negative) 08/18/16 01:45 Urine Bilirubin Neg (Negative) 08/18/16 01:45 Urine Urobilinogen < 2.0 mg/dL (<2.0) 08/18/16 01:45 Ur Leukocyte Esterase Sm (Negative) 08/18/16 01:45 Urine WBC (Auto) 15.0 /HPF (0.0-6.0) H 08/18/16 01:45 Urine RBC (Auto) 3.0 /HPF (0.0-6.0) 08/18/16 01:45 U Epithel Cells (Auto) 5.0 /HPF (0-13.0) 08/18/16 01:45 Urine Bacteria (Auto) 4+ /HPF (Negative) 08/18/16 01:45 Urine Mucus Few /HPF 08/18/16 01:45
[2016-08-19] MEDS ORDERED: DULCOLAX PR PRN (17:24)
[2016-08-19] MEDS: MIRALAX 3350 PO SCH (17:48)
[2016-08-19] MEDS: NOVOLOG SUB-Q SCH (22:54)
[2016-08-20] MEDS: NORCO 7.5/325 PO PRN ×2 (09:23→14:33)
[2016-08-20] MEDS: AMARYL PO SCH (09:24)
[2016-08-20] MEDS: PRADAXA PO SCH (09:24)
[2016-08-20] MEDS: PROTONIX PO SCH (09:24)
[2016-08-20] MEDS: CORDARONE PO SCH (09:24)
[2016-08-20] MEDS: LOPRESSOR PO SCH (09:24)
[2016-08-20] MEDS: MIRALAX 3350 PO SCH (09:24)
[2016-08-20] MEDS: BABY ASPIRIN PO SCH (09:24)
[2016-08-20] MEDS: ZESTRIL PO SCH (09:25)
--- NOTE | 2016-08-20 14:54 | Progress Note ---
Assessment and Plan 66-year-old female with a past medical history of coronary artery disease status post CABG, carotid stenosis, sick sinus syndrome, paroxysmal atrial fibrillation, permanent pacemaker, hypertension, hyperlipidemia, diabetes, and obesity Atrial fibrillation with rapid ventricular response Patient will need to be discharged home on amiodarone 200 mg once a day She will follow-up with Dr. Yara Womack, Continue oral anticoagulation Discharge Today CAD S/P CABG '14 PAD LEFT CAROTID STENOSIS SSS/PAF S/P PPM HYPERTENSION HYPERLIPIDEMIA DIABETES OBESITY Subjective Date of service: 08/20/16 Principal diagnosis: atrial fibrillation with rapid ventricular response Interval history: Patient is sleeping in bed. She feels much better. She denies any palpitations or chest pain. Objective Vital Signs Temp Pulse Pulse Pulse Resp BP BP 08/20/16 13:55 98.5 F 62 20 146/70 08/20/16 11:45 97.9 F 62 20 146/70 08/20/16 10:00 66 08/20/16 09:25 108/61 08/20/16 09:24 108/61 08/20/16 08:08 97.5 F L 64 20 108/61 08/20/16 06:00 97.9 F 51 L 21 157/98 08/20/16 02:00 62 08/20/16 01:00 65 106/60 08/20/16 00:00 98.4 F 60 19 84/49 08/19/16 22:52 62 120/45 08/19/16 20:00 97.9 F 59 L 19 120/65 08/19/16 18:00 74 08/19/16 16:40 97.3 F L 63 20 109/59 Pulse Ox 08/20/16 13:55 99 08/20/16 11:45 99 08/20/16 10:00 08/20/16 09:25 08/20/16 09:24 08/20/16 08:08 97 08/20/16 06:00 96 08/20/16 02:00 08/20/16 01:00 08/20/16 00:00 96 08/19/16 22:52 08/19/16 20:00 99 08/19/16 18:00 08/19/16 16:40 99 - Physical Examination HEENT: Positive: PERRL, EOMI Neck: Positive: neck supple, trachea midline Cardiac: Positive: Reg Rate and Rhythm Lungs: Positive: Normal Exam Neuro: Positive: Grossly Intact, Cranial Nerve 2-12 Intact Abdomen: Positive: Unremarkable, Soft, Active Bowel Sounds Skin: Negative: Rash, Suspicious Lesions Extremities: Present: normal, warm. Absent: edema - Imaging and Cardiology EKG: image reviewed (irregularly irregular heartrate, paced rhythm.) Echo: report reviewed (04/20: EF 55%, mild MR) Cardiac cath: report reviewed ([facility] 04/20: SHIELDS-->LAD: patent, SVG--> PDA: patent and OM mid 60% FFR.92, severe triple vessel disease)
--- NOTE | 2016-08-20 15:55 | Discharge Summary ---
Providers - Providers Date of Admission: 08/18/16 00:25 Date of discharge: 08/20/16 Attending physician: MOOKIE DOAN 08/18/16 00:32 Consult to Physician [CONS] [facility]ine [facility] Reason For Exam: afib with RVR Place consult to:: Rajwinder Flanagan Notified:: Answering Service Phone number called:: [phone] Primary care physician: [employer] Hospitalization Condition: Serious Hospital course: Discharge Diagnosis: A.fib with RVR Diabetes mellitus type 2 chronic antocoagulation h/o Gout diabetic Neuropathy HTN, benign essential coronary artery disease status post CABG, h/o sick sinus syndrome s/p permanent pacemaker Disposition: DISCHARGED TO HOME OR SELFCARE Time spent for discharge: 32 minutes Core Measure Documentation - Palliative Care Palliative Care/ Comfort Measures: Not Applicable - Core Measures Any of the following diagnoses?: history only Exam - Physical Exam Narrative exam: GENERAL: elderly female lying on bed appeared to be in no discomfort. HEENT: Normocephalic. Atraumatic. No conjunctival congestion or icterus. Patient has moist mucous membranes. NECK: Supple. Trachea midline. CHEST/LUNGS: Clear to auscultated bilaterally, breathing nonlabored. No wheezes crackles or rhonchi. HEART/CARDIOVASCULAR: irregular in rate and rhythm. S1 and S2 positive. ABDOMEN: Abdomen is soft, nontender. Patient has normal bowel sounds. SKIN: There is no rash. Warm and dry. NEURO: No focal motor deficit. Follows command. MUSCULOSKELETAL: No joint effusion or tenderness. EXTRIMITY: No edema, no cyanosis or clubbing. PSYCH: Cooperative. - Constitutional Vitals: Temp Pulse Resp BP Pulse Ox 98.5 F 62 20 146/70 99 08/20/16 13:55 08/20/16 13:55 08/20/16 13:55 08/20/16 13:55 08/20/16 13:55 Plan Activity: advance as tolerated, fall precautions Weight Bearing Status: Non-Weight Bearing Diet: low cholesterol, low salt, diabetic Follow up with: PRIMARY CAREMD [Primary Care Provider] - 3-5 Days Prescriptions: Amiodarone [Cordarone 200 MG TAB] 200 mg PO DAILY 30 Days Metoprolol [Lopressor TAB] 50 mg PO BID #60 tablet Pending Studies She will follow-up with Dr. Yara Womack,
[2016-08-20 17:46] VITALS: BP 110/69
--- NOTE | 2016-08-20 17:56 | Echocardiography Report ---
Transthoracic Echocardiogram Indication: AFIB BP: 157/98 Findings Procedure Info: The study quality is fair. Left Ventricle: The left ventricular chamber size is normal. Mild concentric left ventricular hypertrophy is observed. Global left ventricular wall motion and contractility are within normal limits. Global left ventricular systolic function is normal. The estimated ejection fraction is 55-60%. Normal left ventricular diastolic filling is observed. Left Atrium: The left atrium is mildly dilated. Right Ventricle: The right ventricular cavity size is normal. The right ventricular global systolic function is normal. Right Atrium: The right atrial cavity size is normal. The interatrial septum appears normal. Aortic Valve: The aortic valve is trileaflet. The aortic valve leaflets are moderately thickened. Mild aortic leaflet calcification is visualized. There is trace of aortic regurgitation. There is no evidence of aortic stenosis. Mitral Valve: The mitral valve leaflets appear myxomatous. The mitral valve leaflets are mildly thickened. There is mild mitral regurgitation. There is no evidence of mitral stenosis. Tricuspid Valve: The tricuspid valve leaflets are normal. There is trace tricuspid regurgitation. The right ventricular systolic pressure is estimated to be 20-25 mmHg. No pulmonary hypertension is noted. There is no tricuspid stenosis. Pulmonic Valve: The pulmonic valve appears normal. There is mild pulmonic regurgitation. There is no pulmonic stenosis. Pericardium: There is no pericardial effusion. Aorta: There is no dilatation of the aortic root. Venous: The inferior vena cava is not visualized. Measurements Chambers MM Name Value Normal Range Ao root diameter (MM) 3.8 cm (2 - 3.7) LA dimension (AP) MM 3.7 cm (1.9 - 4) LA:Ao ratio (MM) 0.97 ratio - AV cusp separation (MM) 1.7 cm (1.5 - 2.6) Chambers 2D Name Value Normal Range RVIDd (AP) 2D 4.22 cm (0.9 - 2.6) IVSd (2D) 1.35 cm (0.6 - 1.1) LVPWd (2D) 1.05 cm (0.6 - 1.1) IVS:LVPW ratio (2D) 1.29 ratio - LVIDd (2D) 4.99 cm (3.7 - 5.6) LVIDs (2D) 3.66 cm (2 - 3.8) LV FS (Teichholz) (2D) 26.7 % - LV FS (cube) (2D) 26.7 % - EF Teichholz (2D) 52 % - Ao root diameter (2D) 2.7 cm (2 - 3.7) LA dimension (AP) 2D 3.8 cm (1.9 - 4) LA:Ao ratio (2D) 1.41 ratio - Volumes/Mass Name Value Normal Range LA ESV SP 4CH (MOD) 70 ml - LA ESV SP 2CH (MOD) 74 ml - LA ESV BP (MOD) 73 ml - LA ESV BP (MOD) index 33.6 ml/m2 - Diastolic/Systolic Function Name Value Normal Range MV E-wave Vmax 1.07 m/sec - MV deceleration time 264 msec - MV A-wave Vmax 0.58 m/sec - MV E:A ratio 1.8 ratio - LV septal e' Vmax 0.05 m/sec - LV lateral e' Vmax 0.09 m/sec - LV E:e' septal ratio 22.9 ratio - LV E:e' lateral ratio 12.3 ratio - Aortic Valve Name Value Normal Range AV Vmax 1.68 m/sec - AV VTI 34.9 cm - AV peak gradient 11 mmHg - AV mean gradient 6 mmHg - LVOT diameter 2 cm - LVOT Vmax 0.94 m/sec - LVOT VTI 25.6 cm - LVOT peak gradient 4 mmHg - LVOT mean gradient 3 mmHg - SV LVOT 80 ml - CRISTA (continuity Vmax) 1.75 cm2 - CRISTA (continuity VTI) 2.3 cm2 - Mitral Valve Name Value Normal Range MR Vmax 4.62 m/sec - Tricuspid Valve Name Value Normal Range TV E-wave Vmax 0.48 m/sec - TR Vmax 2.25 m/sec - TR peak gradient 20 mmHg - Pulmonic Valve/Qp:Qs Name Value Normal Range PV Vmax 0.76 m/sec - PV peak gradient 2 mmHg - IN end-diastolic Vmax 1.17 m/sec - PV acceleration time 125 msec -
== END 2016-08-20 17:54 | disposition home or self-care (01) | DRG 310 ==
LOC: ED 17:34 → 4A 08-18 00:25
PROVIDERS: ADMIT Internal Medicine; ATTEND Internal Medicine
DX: I48.91 Unspecified atrial fibrillation (principal); I48.92 Unspecified atrial flutter; I25.10 Atherosclerotic heart disease of native coronary artery without angina pectoris; I10 Essential (primary) hypertension; M10.9 Gout, unspecified; E11.40 Type 2 diabetes mellitus with diabetic neuropathy, unspecified; I49.5 Sick sinus syndrome; E78.5 Hyperlipidemia, unspecified; I48.0 Paroxysmal atrial fibrillation; E66.9 Obesity, unspecified; E11.51 Type 2 diabetes mellitus with diabetic peripheral angiopathy without gangrene; Z95.1 Presence of aortocoronary bypass graft; Z95.0 Presence of cardiac pacemaker; Z79.899 Other long term (current) drug therapy; Z95.5 Presence of coronary angioplasty implant and graft; Z90.710 Acquired absence of both cervix and uterus; Z79.82 Long term (current) use of aspirin; Z79.2 Long term (current) use of antibiotics; Z82.3 Family history of stroke; Z80.9 Family history of malignant neoplasm, unspecified; Z88.8 Allergy status to other drugs, medicaments and biological substances; Z68.39 Body mass index [BMI] 39.0-39.9, adult; Z79.01 Long term (current) use of anticoagulants; I65.29 Occlusion and stenosis of unspecified carotid artery; Z79.84 Long term (current) use of oral hypoglycemic drugs; I11.0 Hypertensive heart disease with heart failure; I50.9 Heart failure, unspecified; I65.22 Occlusion and stenosis of left carotid artery
CPT/HCPCS: 36415; 71010; 80048; 80053; 81001; 82962; 84443; 84484; 85025; 93005; 93010; 93306; 96361; 96374; J1815; J7040

== ENCOUNTER 2019-06-25 18:37 | Inpatient (IN) | payer MEDICARE ==
--- NOTE | 2019-06-25 19:56 | Event Note ---
ED Screening Note Date of service: 06/25/19 Time: 19:54 ED Screening Note: 69 y o f with pmh of CHF, HTN,HLD,DM was sent from pcp for persistent cough with sob and pain and left leg and foot pain This initial assessment/diagnostic orders/clinical plan/treatment(s) is/are subject to change based on patients health status, clinical progression and re- assessment by fellow clinical providers in the ED. Further treatment and workup at subsequent clinical providers discretion. Patient/guardian urged not to elope from the ED as their condition may be serious if not clinically assessed and managed. Initial orders include: labs ekg,cxr
--- NOTE | 2019-06-25 20:32 | XRay Report ---
CHEST 1 VIEW INDICATION: Dyspnea. COMPARISON: None. FINDINGS: Support devices: Cardiac leads project in expected position. Heart: Mildly enlarged Lungs/Pleura: There is pulmonary venous hypertension. No consolidation, effusion, or pneumothorax. IMPRESSION: 1. Cardiomegaly with pulmonary venous hypertension. Signer Name: Marcos Rios MD Signed: 06/25/2019 8:27 PM Workstation Name: [id number]
[2019-06-25 20:49] LABS: BUN/Creatinine Ratio 18; Blood Urea Nitrogen 27 mg/dL (7-17); Creatine Kinase MB 1.7 ng/mL (0.0-4.0); Hemolysis Index 27
[2019-06-25 20:57] LABS: Basophils % (Auto) 0.3 % (0.0-1.8); Eosinophils % (Auto) 0.7 % (0.0-4.3); Lymphocytes % (Auto) 15.5 % (13.4-35.0); Mean Corpuscular HGB Conc 29 % (30-34); Mean Corpuscular Volume 84 fl (79-97); Monocytes # (Auto) 0.3 K/mm3 (0.0-0.8); Monocytes % (Auto) 4.7 % (0.0-7.3); Platelet Count 290 K/mm3 (140-440); Red Blood Count 3.21 M/mm3 (3.65-5.03); Red Cell Distribution Width 19.8 % (13.2-15.2)
[2019-06-25 20:58] LABS: Hemoglobin 7.9 gm/dl (10.1-14.3)
[2019-06-26] MEDS ORDERED: ALBUTEROL 2.5 MG/3 ML NEBU IH ONE (01:52)
[2019-06-26] MEDS ORDERED: MAGNESIUM SULFATE 2 GM/50 ML BAG IV ONE (01:52)
[2019-06-26] MEDS ORDERED: AZITHROMYCIN 500 MG in SODIUM CHLORIDE 0.9% 250ML 250 ML IV ONE (01:52)
[2019-06-26] MEDS ORDERED: IPRATROPIUM 0.02% NEBU 2.5 ML IH ONE (01:52)
[2019-06-26] MEDS ORDERED: BENZONATATE 100 MG CAP PO ONE (01:52)
[2019-06-26] MEDS ORDERED: HYDROcodone/ACETAMINOPHEN 5-325 MG TAB PO ONE (01:52)
[2019-06-26] MEDS ORDERED: methylPREDNISolone Sod Succinate 125 MG/2 ML INJ IV ONE (01:53)
--- NOTE | 2019-06-26 01:54 | Emergency Department Report ---
- General Chief Complaint: Chest Pain Stated Complaint: SENT BY /JEANNA BLOOD [facility]OT Time Seen by Provider: 06/26/19 01:40 Source: patient, old records reviewed Mode of arrival: Wheelchair Limitations: No Limitations - History of Present Illness Initial Comments: 69-year-old femaleThifidelia is a 66-year-old female with a past medical history history of coronary artery disease status post CABG in 2013, paroxysmal atrial fibrillation, sick sinus syndrome with dual-chamber permanent pacemaker, peripheral arterial disease with left carotid stenosis, hypertension, diabetes, obesity, gout, and hyperlipidemia who presents to the emergency department complaining of cough, shortness of breath, and wheezing times one week. Cough is productive of yellow bloody sputum. She states she is only works 2-3 steps before becoming really short of breath. Positive wheezing reported without hist ory of COPD or asthma. Patient also having chest wall and posterior thoracic pain worsened palpation and cough. She denies fever. She did not receive a flu shot this year. She saw her primary care doctor prior to arrival was advised that she come to the ER to rule out for PE/DVT versus CHF exacerbation. She was giving an albuterol in the office for active wheezing prior to arrival and noted to have her initial room air saturation 91% with exertion and 98% at rest. Patient is currently on [facility] on chart until RN can place on medical record PMD: Dr. Marcia Quiroz - Related Data Home Medications Medication Instructions Recorded Confirmed Last Taken Omeprazole 20 mg PO DAILY 01/10/16 08/18/16 06/02/16 Glimepiride [Amaryl] 10 mg PO QAM 08/18/16 08/18/16 Unknown Lisinopril [Zestril TAB] 20 mg PO BID 08/18/16 08/18/16 Unknown Previous Rx's Medication Instructions Recorded Last Taken Type metFORMIN [Glucophage] 1,000 mg PO BID #60 tablet 01/11/16 06/02/16 Rx Aspirin [Aspirin BABY CHEW TAB] 81 mg PO QDAY #30 tab.chew 05/04/16 06/02/16 Rx Dabigatran [Pradaxa] 150 mg PO BID #60 capsule 05/04/16 06/02/16 Rx Colchicine [Colcrys] 0.6 mg PO BID #10 tablet 06/05/16 Unknown Rx Amiodarone [Cordarone 200 MG TAB] 200 mg PO DAILY 30 Days tablet 08/20/16 Unknown Rx Metoprolol [Lopressor TAB] 50 mg PO BID #60 tablet 08/20/16 Unknown Rx Allergies Allergy/AdvReac Type Severity Reaction Status Date / Time gabapentin Allergy Unknown Verified 08/17/16 17:53 ED Review of Systems ROS: Stated complaint: SENT BY /JEANNA BLOOD [facility]OT Other details as noted in HPI Comment: All other systems reviewed and negative ED Past Medical Hx - Past Medical History Previous Medical History?: Yes Hx Hypertension: Yes Hx CVA: Yes Hx Heart Attack/AMI: No Hx Congestive Heart Failure: Yes Hx Diabetes: Yes Hx Deep Vein Thrombosis: No Hx Pulmonary Embolism: No Hx GERD: Yes Hx Liver Disease: No Hx Renal Disease: No Hx Sickle Cell Disease: No Hx Arthritis: Yes Hx Seizures: Yes Hx Asthma: No Hx COPD: No Hx Tuberculosis: No Hx Dementia: No Hx HIV: No Additional medical history: Pacemaker - Surgical History Past Surgical History?: Yes Hx Coronary Stent: Yes Hx Open Heart Surgery: Yes (CABG 2013) Hx Pacemaker: Yes Hx Internal Defibrillator: Yes Hx Cholecystectomy: No Hx Appendectomy: No Hx Breast Surgery: No Additional Surgical History: CABG x 4, hysterectomy. by pass x 4 at [facility] - Social History Smoking Status: Never Smoker Substance Use Type: None - Medications Home Medications: Home Medications Medication Instructions Recorded Confirmed Last Taken Type Omeprazole 20 mg PO DAILY 01/10/16 08/18/16 06/02/16 History metFORMIN [Glucophage] 1,000 mg PO BID #60 tablet 01/11/16 08/18/16 06/02/16 Rx Aspirin [Aspirin BABY CHEW TAB] 81 mg PO QDAY #30 tab.chew 05/04/16 08/18/16 06/02/16 Rx Dabigatran [Pradaxa] 150 mg PO BID #60 capsule 05/04/16 08/18/16 06/02/16 Rx Colchicine [Colcrys] 0.6 mg PO BID #10 tablet 06/05/16 08/18/16 Unknown Rx Glimepiride [Amaryl] 10 mg PO QAM 08/18/16 08/18/16 Unknown History Lisinopril [Zestril TAB] 20 mg PO BID 08/18/16 08/18/16 Unknown History Amiodarone [Cordarone 200 MG TAB] 200 mg PO DAILY 30 Days tablet 08/20/16 Unkn own Rx Metoprolol [Lopressor TAB] 50 mg PO BID #60 tablet 08/20/16 Unknown Rx ED Physical Exam - General Limitations: No Limitations - Other Other exam information: General: No acute distress Head: Atraumatic Eyes: normal appearance ENT: Moist mucous membranes Neck: Normal appearance, no midline tenderness Chest: Bilateral wheezing, frequent cough with trace blood and sputum. No accessory muscle use or tachypnea. No crackles CV: Regular rate and rhythm, anterior chest wall tenderness greater on the left Abdomen: Soft, normal bowel sounds, nontender, nondistended, no rebound or guarding Back: Normal inspection Extremity: Normal inspection infection, mild trace leg edema compared to the right. No calf tenderness. Able to palpate right DP pulse. Difficulty palpati ng left DP pulse. but present on Doppler Neuro: Alert O x 3, no facial asymmetry, speech clear, no gross motor sensory deficit Psych: Appropriate behavior Skin: No rash ED Course Vital Signs 06/25/19 06/25/19 06/26/19 18:41 19:54 01:27 Temperature 98 F 98 F 98.3 F Pulse Rate 64 64 64 Respiratory 16 16 12 Rate Blood Pressure 134/57 139/74 Blood Pressure 134/57 [Left] O2 Sat by Pulse 96 96 99 Oximetry ED Medical Decision Making - Lab Data Result diagrams: 06/25/19 20:04 06/25/19 20:04 Lab Results 06/25/19 06/25/19 06/25/19 Range/Units 20:04 20:04 20:04 WBC 6.5 (4.5-11.0) K/mm3 RBC 3.21 L (3.65-5.03) M/mm3 Hgb 7.9 L (10.1-14.3) gm/dl Hct 27.0 L (30.3-42.9) % MCV 84 (79-97) fl MCH 25 L (28-32) pg MCHC 29 L (30-34) % RDW 19.8 H (13.2-15.2) % Plt Count 290 (140-440) K/mm3 Lymph % (Auto) 15.5 (13.4-35.0) % Pender % (Auto) 4.7 (0.0-7.3) % Eos % (Auto) 0.7 (0.0-4.3) % Baso % (Auto) 0.3 (0.0-1.8) % Lymph # 1.0 L (1.2-5.4) K/mm3 Pender # 0.3 (0.0-0.8) K/mm3 Eos # 0.0 (0.0-0.4) K/mm3 Baso # 0.0 (0.0-0.1) K/mm3 Seg Neutrophils % 78.8 H (40.0-70.0) % Seg Neutrophils # 5.2 (1.8-7.7) K/mm3 D-Dimer < 135.00 (0-234) ng/mlDDU Sodium 138 (137-145) mmol/L Potassium 4.8 (3.6-5.0) mmol/L Chloride 104.3 (98-107) mmol/L Carbon Dioxide 17 L (22-30) mmol/L Anion Gap 22 mmol/L BUN 27 H (7-17) mg/dL Creatinine 1.5 H (0.7-1.2) mg/dL Estimated GFR 34 ml/min BUN/Creatinine Ratio 18 % Glucose 178 H (65-100) mg/dL Calcium 9.0 (8.4-10.2) mg/dL Total Creatine Kinase 64 (30-135) units/L CK-MB (CK-2) 1.7 (0.0-4.0) ng/mL CK-MB (CK-2) Rel Index 2.6 (0-4) Troponin T < 0.010 (0.00-0.029) ng/mL - EKG Data -: EKG Interpreted by [place] EKG shows normal: sinus rhythm, ST-T waves (lvh with repol) Rate: normal (63) - EKG Data When compared to previous EKG there are: no significant change - Radiology Data Radiology results: report reviewed CHEST 1 VIEW INDICATION: Dyspnea. COMPARISON: None. FINDINGS: Support devices: Cardiac leads project in expected position. Heart: Mildly enlarged Lungs/Pleura: There is pulmonary venous hypertension. No consolidation, effusion, or pneumothorax. IMPRESSION: 1. Cardiomegaly with pulmonary venous hypertension. - Medical Decision Making Patient had hemoptysis without elevated d-dimer. She is on anticoagulants per PRASHANT could be contributing to bloody sputum. No infiltrate Stephanie fight on chest x-ray. Positive audible wheezing with dyspnea reported. Patient was treated for acute bronchitis as atypical pneumonia with azithromycin, bronchodilators, steroids, magnesium, cough medicine, and pain medication. Hospitalist informed for admission. - Differential Diagnosis pneumonia, CHF, PE, coagulopathy, bronchitis Critical Care Time: No Critical care attestation.: If time is entered above; I have spent that time in minutes in the direct care of this critically ill patient, excluding procedure time. ED Disposition Clinical Impression: Acute bronchitis, Cough with hemoptysis, Anticoagulant long-term use, Wheezing, Anemia, Pulmonary venous congestion Disposition: 09 OP ADMIT IP TO THIS HOSP Is pt being admited?: Yes Condition: Stable Time of Disposition: 02:04 (Dr crowell/hosp)
[2019-06-26] MEDS ORDERED: ONDANSETRON 4 MG/2 ML INJ IV PRN (02:20)
[2019-06-26] MEDS ORDERED: ALBUTEROL 2.5 MG/3 ML NEBU IH PRN ×2 (02:20→16:37)
[2019-06-26] MEDS ORDERED: DEXTROSE 50% IN WATER (25GM) 50 ML SYRINGE IV PRN (02:20)
[2019-06-26] MEDS ORDERED: SODIUM CHLORIDE 0.9% 1000 ML 1,000 ML IV SCH (03:00)
--- NOTE | 2019-06-26 03:39 | History and Physical Report ---
<SHAHANA SUMMERS - Last Filed: 06/26/19 03:34> History of Present Illness Date of examination: 06/26/19 Date of admission: 06/26/2019 Chief complaint: Cough, SOB History of present illness: 69-year-old female with history of coronary artery disease status post CABG (2013), A. fib on Pradaxa, sick sinus syndrome with dual chamber pacemaker, PAD, left carotid stenosis, hypertension, diabetes, obesity, gout, HLD who presents to [facility] ED with complaints of SOB, productive cough and wheezing. Pt daughters are present at bedside and have assisted in providing history. Pt states that she is unable to walk more than 3 steps without becoming SOB. Additionally she complains of cough with thick yellow sputum production and wheezing for the past 3-4 days. Pt went to her PCP office today and was found to have initial saturation of 98% at rest and 91% with exertion. She was given albuterol nebulizer tx to help with wheezing. In addition to her respiratory complaints, pt complains of bilateral lower extremity edema. Her PCP (Dr. Marcia Vazquez) suggested that she go to the ED for further evaluation to rule out PE/DVT. Work up in the ED included D-Dimer, which was negative for PE no further testing is required at this time. Pt is anticoagulated on Pradaxa. Past History Past Medical History: atrial fib (on Pradaxa), arthritis, CAD, diabetes, GERD, hypertension, hyperlipidemia, other (sick sinus syndrome, PAD, left carotid stenosis, obesity, gout) Past Surgical History: CABG (2013), Other (dual-chamber pacemaker) Social history: lives with family Family history: no significant family history Medications and Allergies Allergies Allergy/AdvReac Type Severity Reaction Status Date / Time gabapentin Allergy Unknown Verified 08/17/16 17:53 Home Medications Medication Instructions Recorded Confirmed Last Taken Type Aspirin [Aspirin BABY CHEW TAB] 81 mg PO QDAY #30 tab.chew 05/04/16 06/27/19 06/26/19 Rx 81 mg Dabigatran [Pradaxa] 150 mg PO BID #60 capsule 05/04/16 06/27/19 06/25/19 Rx 150 mg Colchicine [Colcrys] 0.6 mg PO BID #10 tablet 06/05/16 06/27/19 06/26/19 Rx 0.6mg Amiodarone [Cordarone 200 MG TAB] 200 mg PO DAILY 30 Days tablet 08/20/16 06/27/19 06/25/19 Rx 200 mg Evolocumab [Repatha Syringe] 140 mg SUB-Q Q15D 06/26/19 06/27/19 Unknown History Metoprolol [Lopressor TAB] 25 mg PO BID 06/26/19 06/27/19 06/25/19 History 25 mg Fluconazole [Diflucan TAB] 100 mg PO QDAY #5 tablet 07/02/19 Unknown Rx Furosemide [Lasix TAB] 40 mg PO BID #60 tablet 07/02/19 Unknown Rx HYDROcodone/APAP 5-325 [[place] 1 each PO Q4H PRN #14 tablet 07/02/19 Unknown Rx 5-325 mg TAB] Linagliptin [Tradjenta] 5 mg PO QDDIAB #30 tablet 07/02/19 Unknown Rx Pantoprazole [Protonix TAB] 40 mg PO DAILY #30 tablet 07/02/19 Unknown Rx Active Meds: Active Medications Acetaminophen (Tylenol) 650 mg PO Q4H PRN PRN Reason: Pain MILD(1-3)/Fever >100.5/MCCALL Albuterol (Proventil) 2.5 mg IH Q3HRT PRN PRN Reason: Shortness Of Breath Amiodarone HCl (Cordarone) 200 mg PO DAILY [facility] Aspirin (Baby Aspirin) 81 mg PO QDAY [facility] Dabigatran (Pradaxa) 150 mg PO BID [facility]; Protocol Dextrose (D50w (25gm) Syringe) 50 ml IV Q30MIN PRN; Protocol PRN Reason: Hypoglycemia Docusate Sodium (Colace) 100 mg PO BID [facility] Guaifenesin (Mucinex Er) 600 mg PO BID [facility] Sodium Chloride (Nacl 0.9% 1000 Ml) 1,000 mls @ 75 mls/hr IV DIRECT [facility] Stop: 06/26/19 11:00 Azithromycin 500 mg/ Sodium (Chloride) 250 mls @ 250 mls/hr IV Q24H [facility]; Protocol Insulin Human Lispro (Humalog) 0 unit SUB-Q ACHS [facility]; Protocol Methylprednisolone Sodium Succinate (Solu-Medrol) 80 mg IV Q8H [facility] Miscellaneous Medication (Colchicine [Colcrys]) 0.6 mg PO BID [facility] Sodium Chloride (Sodium Chloride Flush Syringe 10 Ml) 10 ml IV BID [facility] Sodium Chloride (Sodium Chloride Flush Syringe 10 Ml) 10 ml IV PRN PRN PRN Reason: LINE FLUSH Review of Systems All systems: negative Cardiovascular: dyspnea on exertion, leg edema Respiratory: cough with sputum (thick yellow sputum), dyspnea on exertion Exam - Physical Exam Narrative exam: Physical exam General appearance: Present: No acute distress, alert and oriented 3, obese, well-developed, adult female - EENT Eyes: Present: PERRL, EOM intact ENT: hearing intact, normal dentition - Neck Neck: Present: supple, normal ROM - Respiratory Respiratory effort: Non-labored, nonproductive cough elicited during exam Respiratory: Scattered wheezes - Cardiovascular Heart rate: 63 (bpm) Rhythm: Sinus rhythm Heart Sounds: Present: S1 & S2. Absent: rub, click - Extremities Extremities: no ischemia, pulses intact, no lower extremity trace edema - Peripheral Assessment Peripheral Pulses: within normal limits - Abdominal General gastrointestinal: Obese, soft, non-tender, normal bowel sounds - Integumentary Integumentary: Present: warm, dry - Musculoskeletal Musculoskeletal: Able to move all extremities -Neurological Neurological: CN II-XII intact - Psychiatric Psychiatric: Appropriate for situation ,cooperative - Constitutional Vitals: Temp Pulse Resp BP Pulse Ox 98.3 F 66 18 139/74 100 06/26/19 01:27 06/26/19 02:45 06/26/19 02:56 06/26/19 01:27 06/26/19 02:45 Results - Labs CBC & Chem 7: 06/25/19 20:04 06/25/19 20:04 Labs: Laboratory Last Values WBC 6.5 K/mm3 (4.5-11.0) 06/25/19 20:04 RBC 3.21 M/mm3 (3.65-5.03) L 06/25/19 20:04 Hgb 7.9 gm/dl (10.1-14.3) L 06/25/19 20:04 Hct 27.0 % (30.3-42.9) L 06/25/19 20:04 MCV 84 fl (79-97) 06/25/19 20:04 MCH 25 pg (28-32) L 06/25/19 20:04 MCHC 29 % (30-34) L 06/25/19 20:04 RDW 19.8 % (13.2-15.2) H 06/25/19 20:04 Plt Count 290 K/mm3 (140-440) 06/25/19 20:04 Lymph % (Auto) 15.5 % (13.4-35.0) 06/25/19 20:04 Lassen % (Auto) 4.7 % (0.0-7.3) 06/25/19 20:04 Eos % (Auto) 0.7 % (0.0-4.3) 06/25/19 20:04 Baso % (Auto) 0.3 % (0.0-1.8) 06/25/19 20:04 Lymph # 1.0 K/mm3 (1.2-5.4) L 06/25/19 20:04 Lassen # 0.3 K/mm3 (0.0-0.8) 06/25/19 20:04 Eos # 0.0 K/mm3 (0.0-0.4) 06/25/19 20:04 Baso # 0.0 K/mm3 (0.0-0.1) 06/25/19 20:04 Seg Neutrophils % 78.8 % (40.0-70.0) H 06/25/19 20:04 Seg Neutrophils # 5.2 K/mm3 (1.8-7.7) 06/25/19 20:04 D-Dimer < 135.00 ng/mlDDU (0-234) 06/25/19 20:04 Sodium 138 mmol/L (137-145) 06/25/19 20:04 Potassium 4.8 mmol/L (3.6-5.0) 06/25/19 20:04 Chloride 104.3 mmol/L (98-107) 06/25/19 20:04 Carbon Dioxide 17 mmol/L (22-30) L 06/25/19 20:04 Anion Gap 22 mmol/L 06/25/19 20:04 BUN 27 mg/dL (7-17) H 06/25/19 20:04 Creatinine 1.5 mg/dL (0.7-1.2) H 06/25/19 20:04 Estimated GFR 34 ml/min 06/25/19 20:04 BUN/Creatinine Ratio 18 % 06/25/19 20:04 Glucose 178 mg/dL (65-100) H 06/25/19 20:04 Calcium 9.0 mg/dL (8.4-10.2) 06/25/19 20:04 Total Creatine Kinase 64 units/L (30-135) 06/25/19 20:04 CK-MB (CK-2) 1.7 ng/mL (0.0-4.0) 06/25/19 20:04 CK-MB (CK-2) Rel Index 2.6 (0-4) 06/25/19 20:04 Troponin T < 0.010 ng/mL (0.00-0.029) 06/25/19 20:04 - Imaging and Cardiology Imaging and Cardiology: CXR: FINDINGS: Support devices: Cardiac leads project in expected position. Heart: Mildly enlarged Lungs/Pleura: There is pulmonary venous hypertension. No consolidation, effusion, or pneumothorax. IMPRESSION: 1. Cardiomegaly with pulmonary venous hypertension. Assessment and Plan Assessment and plan: 69-year-old female with history of coronary artery disease status post CABG (2013), A. fib on Pradaxa, sick sinus syndrome with daul chamber pacemaker, PAD, left carotid stenosis, hypertension, diabetes, obesity, gout, HLD who presents to [facility] ED with complaints of SOB, productive cough and wheezing. Bronchitis -CXR negative for consolidation, effusion, or pneumothorax; but did show Cardiomegaly with pulmonary venous hypertension -Complains of coughing up thick yellow sputum -No leukocytosis -On IV Abx -Mucines -Scheduled Duo Nebs and Albuterol prn -Systemic IV steriods -Continue supportive care JODI -Cr on admission 1.5 -??CKD with GFR 34 -Gentle Hydrate with IVF -Avoid nephrotoxic agents -Renal dose all meds Anemia -Hemoglobin on admission 7.9 -C/o mild hemoptysis, on Pradaxa; continue to monitor for now -Continue to monitor hemoglobin -Transfuse as needed Hx Afib -Rate controlled on BB and Pradaxa DM -POC BG monitoring -Continue glimepiride -Hold metformin d/t renal function -SSI coverage prn -HgbA1C pending HTN -Monitor BP -Resume home hypertensive meds DVT PPX -SCD's -On Pradaxa and ASA Advance Directives: No VTE prophylaxis?: Chemical Plan of care discussed with patient/family: Yes <MANDEEP QUEVEDO - Last Filed: 07/11/19 00:36> History of Present Illness Date of admission: 06/26/19 03:43 Medications and Allergies Active Meds: Active Medications Acetaminophen (Tylenol) 650 mg PO Q4H PRN PRN Reason: Pain MILD(1-3)/Fever >100.5/MCCALL Albuterol (Proventil) 2.5 mg IH Q3HRT PRN PRN Reason: Shortness Of Breath Albuterol/Ipratropium (Duoneb *Not For Prn Use*) 1 ampul IH Q4HRT [facility] Amiodarone HCl (Cordarone) 200 mg PO DAILY [facility] Aspirin (Baby Aspirin) 81 mg PO QDAY [facility] Colchicine (Colchicine) 0.6 mg PO QDAY [facility] Dabigatran (Pradaxa) 150 mg PO BID [facility]; Protocol Dextrose (D50w (25gm) Syringe) 50 ml IV Q30MIN PRN; Protocol PRN Reason: Hypoglycemia Docusate Sodium (Colace) 100 mg PO BID [facility] Glimepiride (Amaryl) 10 mg PO QAM [facility] Guaifenesin (Mucinex Er) 600 mg PO BID [facility] Hydrochlorothiazide (Hctz) 25 mg PO QDAY [facility] Sodium Chloride (Nacl 0.9% 1000 Ml) 1,000 mls @ 75 mls/hr IV DIRECT [facility] Stop: 06/26/19 11:00 Azithromycin 500 mg/ Sodium (Chloride) 250 mls @ 250 mls/hr IV Q24H [facility]; Protocol Insulin Human Lispro (Humalog) 0 unit SUB-Q ACHS [facility]; Protocol Lisinopril (Zestril) 20 mg PO BID [facility] Methylprednisolone Sodium Succinate (Solu-Medrol) 80 mg IV Q8H [facility] Metoprolol Tartrate (Metoprolol) 25 mg PO BID [facility] Pantoprazole Sodium (Protonix) 20 mg PO QDAY [facility] Sodium Chloride (Sodium Chloride Flush Syringe 10 Ml) 10 ml IV BID [facility] Sodium Chloride (Sodium Chloride Flush Syringe 10 Ml) 10 ml IV PRN PRN PRN Reason: LINE FLUSH Exam - Constitutional Vitals: Temp Pulse Resp BP Pulse Ox 98.3 F 66 20 105/45 100 06/26/19 01:27 06/26/19 04:01 06/26/19 04:01 06/26/19 04:01 06/26/19 04:01 Results - Labs CBC & Chem 7: 11/23/19 04:13 07/02/19 03:57 Labs: Laboratory Last Values WBC 6.5 K/mm3 (4.5-11.0) 06/25/19 20:04 RBC 3.21 M/mm3 (3.65-5.03) L 06/25/19 20:04 Hgb 7.9 gm/dl (10.1-14.3) L 06/25/19 20:04 Hct 27.0 % (30.3-42.9) L 06/25/19 20:04 MCV 84 fl (79-97) 06/25/19 20:04 MCH 25 pg (28-32) L 06/25/19 20:04 MCHC 29 % (30-34) L 06/25/19 20:04 RDW 19.8 % (13.2-15.2) H 06/25/19 20:04 Plt Count 290 K/mm3 (140-440) 06/25/19 20:04 Lymph % (Auto) 15.5 % (13.4-35.0) 06/25/19 20:04 Lassen % (Auto) 4.7 % (0.0-7.3) 06/25/19 20:04 Eos % (Auto) 0.7 % (0.0-4.3) 06/25/19 20:04 Baso % (Auto) 0.3 % (0.0-1.8) 06/25/19 20:04 Lymph # 1.0 K/mm3 (1.2-5.4) L 06/25/19 20:04 Lassen # 0.3 K/mm3 (0.0-0.8) 06/25/19 20:04 Eos # 0.0 K/mm3 (0.0-0.4) 06/25/19 20:04 Baso # 0.0 K/mm3 (0.0-0.1) 06/25/19 20:04 Seg Neutrophils % 78.8 % (40.0-70.0) H 06/25/19 20:04 Seg Neutrophils # 5.2 K/mm3 (1.8-7.7) 06/25/19 20:04 D-Dimer < 135.00 ng/mlDDU (0-234) 06/25/19 20:04 Sodium 138 mmol/L (137-145) 06/25/19 20:04 Potassium 4.8 mmol/L (3.6-5.0) 06/25/19 20:04 Chloride 104.3 mmol/L (98-107) 06/25/19 20:04 Carbon Dioxide 17 mmol/L (22-30) L 06/25/19 20:04 Anion Gap 22 mmol/L 06/25/19 20:04 BUN 27 mg/dL (7-17) H 06/25/19 20:04 Creatinine 1.5 mg/dL (0.7-1.2) H 06/25/19 20:04 Estimated GFR 34 ml/min 06/25/19 20:04 BUN/Creatinine Ratio 18 % 06/25/19 20:04 Glucose 178 mg/dL (65-100) H 06/25/19 20:04 Calcium 9.0 mg/dL (8.4-10.2) 06/25/19 20:04 Total Creatine Kinase 64 units/L (30-135) 06/25/19 20:04 CK-MB (CK-2) 1.7 ng/mL (0.0-4.0) 06/25/19 20:04 CK-MB (CK-2) Rel Index 2.6 (0-4) 06/25/19 20:04 Troponin T < 0.010 ng/mL (0.00-0.029) 06/25/19 20:04 Assessment and Plan Assessment and plan: 69-year-old woman with a history of hypertension, diabetes, A. fib, coronary artery disease, gout, peripheral vascular disease, hyperlipidemia causing her c oncern with complaining cough productive of yellow phlegm, blood-tinged sputum. Physical exam significant for coarse breath sounds, wheezing, treated with steroids, antibiotic. Patient seen and examined, discussed with nurse practitioner, other plan as discussed above
[2019-06-26] MEDS: IPRATROPIUM/ALBUTEROL SULFATE 3 ML AMPUL.NEB IH SCH ×5 (06:14→22:12)
[2019-06-26] MEDS: INSULIN LISPRO 100 UNIT/ML SUB-Q SCH ×4 (09:13→22:20)
[2019-06-26] MEDS: ACETAMINOPHEN 325 MG TAB PO PRN ×2 (09:41→13:12)
[2019-06-26] MEDS: DABIGATRAN 150 MG CAP PO SCH ×2 (09:52→22:18)
[2019-06-26] MEDS: METOPROLOL TARTRATE 50 MG TAB PO SCH ×2 (09:52→22:20)
[2019-06-26] MEDS: guaiFENesin ER 600 MG TAB PO SCH ×2 (09:52→22:18)
[2019-06-26] MEDS: DOCUSATE SODIUM 100 MG CAP PO SCH ×2 (09:53→22:18)
[2019-06-26] MEDS: AMIODARONE 200 MG TAB PO SCH (09:53)
[2019-06-26] MEDS: COLCHICINE 0.6 MG CAP PO SCH (09:54)
[2019-06-26] MEDS: ASPIRIN 81 MG TAB CHEW PO SCH (09:54)
[2019-06-26] MEDS: LISINOPRIL 20 MG TAB PO SCH ×2 (09:54→22:19)
[2019-06-26] MEDS ORDERED: PANTOPRAZOLE 20 MG TAB PO SCH (10:00)
[2019-06-26] MEDS ORDERED: hydroCHLOROthiazide 25 MG TAB PO SCH (10:00)
[2019-06-26] MEDS ORDERED: NON-FORMULARY EACH (Omeprazole 20 MG) PO SCH (10:00)
[2019-06-26] MEDS ORDERED: NON-FORMULARY EACH (Colchicine [Colcrys] 0.6 MG) PO SCH (10:00)
[2019-06-26] MEDS ORDERED: metFORMIN 500 MG TAB PO SCH (10:00)
[2019-06-26] MEDS ORDERED: GLIMEPIRIDE 2 MG TAB PO SCH (10:00)
[2019-06-26] MEDS: methylPREDNISolone Sod Succinate 125 MG/2 ML INJ IV SCH ×2 (10:01→17:29)
[2019-06-26] MEDS ORDERED: SIMETHICONE 80 MG CHEW TAB PO PRN (11:03)
[2019-06-26] MEDS: PANTOPRAZOLE 40 MG INJ IV SCH (12:04)
--- NOTE | 2019-06-26 12:58 | Event Note ---
Date: 06/26/19 Pt admitted today for acute brochitis and JODI. pt was seen today and she complained of heart burn radiating to the chest. She will be placed on protonix and PRN simethicone. Will aslo repeat troponin level.
[2019-06-26] MEDS: GLIMEPIRIDE 2 MG TAB PO SCH (13:12)
[2019-06-26] MEDS: SODIUM CHLORIDE 0.9% 1000 ML 1,000 ML IV SCH ×2 (13:12→21:15)
[2019-06-26] MEDS: HYDROcodone/ACETAMINOPHEN 5-325 MG TAB PO PRN (14:39)
[2019-06-26] MEDS: ARFORMOTEROL 15 MCG/2 ML NEBU IH SCH (20:35)
[2019-06-26] MEDS: BUDESONIDE 0.5 MG/2 ML NEBU IH SCH (20:35)
[2019-06-26] MEDS: AZITHROMYCIN 500 MG in SODIUM CHLORIDE 0.9% 250ML 250 ML IV SCH (22:30)
[2019-06-27] MEDS: methylPREDNISolone Sod Succinate 125 MG/2 ML INJ IV SCH ×2 (01:58→11:00)
[2019-06-27] MEDS: IPRATROPIUM/ALBUTEROL SULFATE 3 ML AMPUL.NEB IH SCH ×4 (02:34→19:38)
[2019-06-27 05:29] LABS: Hemoglobin 7.8 gm/dl (10.1-14.3); Mean Corpuscular HGB Conc 30 % (30-34); Mean Corpuscular Volume 80 fl (79-97); Platelet Count 249 K/mm3 (140-440); Red Blood Count 3.24 M/mm3 (3.65-5.03); Red Cell Distribution Width 18.6 % (13.2-15.2)
[2019-06-27 06:17] LABS: Basophils % (Manual) 0 % (0.0-1.8); Eosinophils % (Manual) 0 % (0.0-4.3); Total Cells Counted 100
[2019-06-27 06:19] LABS: Hypochromasia Few
[2019-06-27 06:24] LABS: Platelet Estimate Consistent w Auto; Tear Drop Cells Rare
[2019-06-27] MEDS: ACETAMINOPHEN 325 MG TAB PO PRN (06:37)
[2019-06-27] MEDS: SODIUM CHLORIDE 0.9% 1000 ML 1,000 ML IV SCH ×2 (06:42→17:40)
[2019-06-27] MEDS: INSULIN LISPRO 100 UNIT/ML SUB-Q SCH ×4 (08:48→21:58)
[2019-06-27] MEDS ORDERED: SODIUM CHLORIDE 0.9% 1000 ML 1,000 ML IV ONE (09:28)
[2019-06-27] MEDS: ARFORMOTEROL 15 MCG/2 ML NEBU IH SCH ×2 (09:41→19:37)
[2019-06-27] MEDS: BUDESONIDE 0.5 MG/2 ML NEBU IH SCH ×2 (09:41→19:37)
[2019-06-27] MEDS: GLIMEPIRIDE 2 MG TAB PO SCH (10:51)
[2019-06-27] MEDS: DOCUSATE SODIUM 100 MG CAP PO SCH ×2 (10:51→22:01)
[2019-06-27] MEDS: METOPROLOL TARTRATE 50 MG TAB PO SCH ×2 (10:52→22:01)
[2019-06-27] MEDS: guaiFENesin ER 600 MG TAB PO SCH ×2 (10:52→22:00)
[2019-06-27] MEDS: AMIODARONE 200 MG TAB PO SCH (10:52)
[2019-06-27] MEDS: ASPIRIN 81 MG TAB CHEW PO SCH (10:52)
[2019-06-27] MEDS: DABIGATRAN 150 MG CAP PO SCH ×2 (10:52→22:00)
[2019-06-27] MEDS: PANTOPRAZOLE 40 MG INJ IV SCH (10:53)
[2019-06-27] MEDS: MORPHINE 2 MG/1 ML INJ IV PRN ×2 (11:01→20:05)
[2019-06-27] MEDS: COLCHICINE 0.6 MG CAP PO SCH (11:55)
[2019-06-27] MEDS: HYDROcodone/ACETAMINOPHEN 5-325 MG TAB PO PRN (13:54)
--- NOTE | 2019-06-27 13:59 | Progress Note ---
Assessment and Plan Assessment and plan: Acute Bronchitis -Improving -Continue IV antibiotic and neb tx. IV steroids changed to oral JODI, probably vasomotor nephropathy -On IV fluid, will monitor creatinine level -Avoid nephrotoxic agents -Abdominal ultrasound pending Right upper quadrant abdominal pain -Abdominal ultrasound pending Odynophagia -GI consulted -Continue IV Protonix AOCD -H/H stable -We'll check iron panel Paroxysmal Afib -Rate controlled on BB -Continue Pradaxa DM2 with hyperglycemia -Continue SSI and glimepiride, Lantus added -HgbA1C: 6.1 HTN -Controlled on BB Metabolic acidosis -Likely secondary to the JODI -On oral supplements, will monitor level Hyperkalemia -On IV fluid, will monitor level DVT PPX -SCD's, Pradaxa Disposition: Pending abdominal ultrasound and GI evaluation. DC per clinical course History Interval history: Patient complained of pain with swallowing, headaches and right upper quadrant abdominal pain Hospitalist Physical - Constitutional Vitals: Temp Pulse Resp BP Pulse Ox 97.6 F 66 18 122/50 98 06/27/19 03:47 06/27/19 10:52 06/27/19 06:37 06/27/19 10:52 06/27/19 03:47 General appearance: Present: no acute distress - EENT Eyes: Present: PERRL, EOM intact ENT: hearing intact, clear oral mucosa - Neck Neck: Present: supple - Respiratory Respiratory effort: labored Respiratory: bilateral: rales - Cardiovascular Rhythm: regular Heart Sounds: Present: S1 & S2 - Extremities Extremity abnormal: edema (trace edema in bilateral lower extremities) - Abdominal General gastrointestinal: soft, tender (RUQ), normal bowel sounds - Integumentary Integumentary: Present: warm, dry - Psychiatric Psychiatric: cooperative - Neurologic Neurologic: moves all extremities Results - Labs CBC & Chem 7: 06/27/19 04:13 06/27/19 04:13 Labs: Laboratory Last Values WBC 8.5 K/mm3 (4.5-11.0) 06/27/19 04:13 RBC 3.24 M/mm3 (3.65-5.03) L 06/27/19 04:13 Hgb 7.8 gm/dl (10.1-14.3) L 06/27/19 04:13 Hct 26.0 % (30.3-42.9) L 06/27/19 04:13 MCV 80 fl (79-97) 06/27/19 04:13 MCH 24 pg (28-32) L 06/27/19 04:13 MCHC 30 % (30-34) 06/27/19 04:13 RDW 18.6 % (13.2-15.2) H 06/27/19 04:13 Plt Count 249 K/mm3 (140-440) 06/27/19 04:13 Lymph % (Auto) [employer] 06/27/19 04:13 Drew % (Auto) [employer] 06/27/19 04:13 Eos % (Auto) [employer] 06/27/19 04:13 Baso % (Auto) [employer] 06/27/19 04:13 Lymph # [employer] 06/27/19 04:13 Drew # [employer] 06/27/19 04:13 Eos # [employer] 06/27/19 04:13 Baso # [employer] 06/27/19 04:13 Add Manual Diff Complete 06/27/19 04:13 Total Counted 100 06/27/19 04:13 Seg Neutrophils % [employer] 06/27/19 04:13 Seg Neuts % (Manual) 92.0 % (40.0-70.0) H 06/27/19 04:13 Band Neutrophils % 0 % 06/27/19 04:13 Lymphocytes % (Manual) 6.0 % (13.4-35.0) L 06/27/19 04:13 Reactive Lymphs % (Man) 0 % 06/27/19 04:13 Monocytes % (Manual) 2.0 % (0.0-7.3) 06/27/19 04:13 Eosinophils % (Manual) 0 % (0.0-4.3) 06/27/19 04:13 Basophils % (Manual) 0 % (0.0-1.8) 06/27/19 04:13 Metamyelocytes % 0 % 06/27/19 04:13 Myelocytes % 0 % 06/27/19 04:13 Promyelocytes % 0 % 06/27/19 04:13 Blast Cells % 0 % 06/27/19 04:13 Nucleated RBC % Not Reportable 06/27/19 04:13 Seg Neutrophils # [employer] 06/27/19 04:13 Seg Neutrophils # Man 7.8 K/mm3 (1.8-7.7) H 06/27/19 04:13 Band Neutrophils # 0.0 K/mm3 06/27/19 04:13 Lymphocytes # (Manual) 0.5 K/mm3 (1.2-5.4) L 06/27/19 04:13 Abs React Lymphs (Man) 0.0 K/mm3 06/27/19 04:13 Monocytes # (Manual) 0.2 K/mm3 (0.0-0.8) 06/27/19 04:13 Eosinophils # (Manual) 0.0 K/mm3 (0.0-0.4) 06/27/19 04:13 Basophils # (Manual) 0.0 K/mm3 (0.0-0.1) 06/27/19 04:13 Metamyelocytes # 0.0 K/mm3 06/27/19 04:13 Myelocytes # 0.0 K/mm3 06/27/19 04:13 Promyelocytes # 0.0 K/mm3 06/27/19 04:13 Blast Cells # 0.0 K/mm3 06/27/19 04:13 WBC Morphology Not Reportable 06/27/19 04:13 Hypersegmented Neuts Not Reportable 06/27/19 04:13 Hyposegmented Neuts Not Reportable 06/27/19 04:13 Hypogranular Neuts Not Reportable 06/27/19 04:13 Smudge Cells Not Reportable 06/27/19 04:13 Toxic Granulation Not Reportable 06/27/19 04:13 Toxic Vacuolation Not Reportable 06/27/19 04:13 Dohle Bodies Not Reportable 06/27/19 04:13 Pelger-Huet Anomaly Not Reportable 06/27/19 04:13 Sami Rods Not Reportable 06/27/19 04:13 Platelet Estimate Consistent w auto 06/27/19 04:13 Clumped Platelets Not Reportable 06/27/19 04:13 Plt Clumps, EDTA Not Reportable 06/27/19 04:13 Large Platelets Not Reportable 06/27/19 04:13 Giant Platelets Not Reportable 06/27/19 04:13 Platelet Satelliting Not Reportable 06/27/19 04:13 Plt Morphology Comment Not Reportable 06/27/19 04:13 RBC Morphology Not Reportable 06/27/19 04:13 Dimorphic RBCs Not Reportable 06/27/19 04:13 Polychromasia Rare 06/27/19 04:13 Hypochromasia Few 06/27/19 04:13 Poikilocytosis Not Reportable 06/27/19 04:13 Anisocytosis Not Reportable 06/27/19 04:13 Microcytosis Not Reportable 06/27/19 04:13 Macrocytosis Not Reportable 06/27/19 04:13 Spherocytes Not Reportable 06/27/19 04:13 Pappenheimer Bodies Not Reportable 06/27/19 04:13 Sickle Cells Not Reportable 06/27/19 04:13 Target Cells Not Reportable 06/27/19 04:13 Tear Drop Cells Rare 06/27/19 04:13 Ovalocytes Not Reportable 06/27/19 04:13 Helmet Cells Not Reportable 06/27/19 04:13 Wu-[place] Bodies Not Reportable 06/27/19 04:13 [place] Rings Not Reportable 06/27/19 04:13 [place] Cells Not Reportable 06/27/19 04:13 Bite Cells Not Reportable 06/27/19 04:13 Crenated Cell Not Reportable 06/27/19 04:13 Elliptocytes Rare 06/27/19 04:13 Acanthocytes (Spur) Not Reportable 06/27/19 04:13 Rouleaux Not Reportable 06/27/19 04:13 Hemoglobin C Crystals Not Reportable 06/27/19 04:13 Schistocytes Not Reportable 06/27/19 04:13 Malaria parasites Not Reportable 06/27/19 04:13 Joey Bodies Not Reportable 06/27/19 04:13 Hem Pathologist Commnt No 06/27/19 04:13 D-Dimer < 135.00 ng/mlDDU (0-234) 06/25/19 20:04 Sodium 138 mmol/L (137-145) 06/27/19 04:13 Potassium 5.3 mmol/L (3.6-5.0) H 06/27/19 04:13 Chloride 102.7 mmol/L (98-107) 06/27/19 04:13 Carbon Dioxide 18 mmol/L (22-30) L 06/27/19 04:13 Anion Gap 23 mmol/L 06/27/19 04:13 BUN 33 mg/dL (7-17) H 06/27/19 04:13 Creatinine 1.7 mg/dL (0.7-1.2) H 06/27/19 04:13 Estimated GFR 30 ml/min 06/27/19 04:13 BUN/Creatinine Ratio 19 % 06/27/19 04:13 Glucose 117 mg/dL (65-100) H 06/27/19 04:13 POC Glucose 267 (70-105) H 06/27/19 12:04 Hemoglobin A1c 6.1 % (4-6) H 06/26/19 05:46 Calcium 9.0 mg/dL (8.4-10.2) 06/27/19 04:13 Magnesium 2.40 mg/dL (1.7-2.3) H 06/27/19 04:13 Total Creatine Kinase 64 units/L (30-135) 06/25/19 20:04 CK-MB (CK-2) 1.7 ng/mL (0.0-4.0) 06/25/19 20:04 CK-MB (CK-2) Rel Index 2.6 (0-4) 06/25/19 20:04 Troponin T < 0.010 ng/mL (0.00-0.029) 06/26/19 13:18 Active Medications - Current Medications Current Medications: Generic Name Dose Route Start Last Admin Trade Name Freq PRN Reason Stop Dose Admin Acetaminophen 650 mg 06/26/19 02:20 06/27/19 06:37 Tylenol PO 650 mg Q4H PRN Administration Pain MILD(1-3)/Fever >100.5/MCCALL Acetaminophen/Hydrocodone Bitart 1 each 06/26/19 15:00 06/27/19 13:54 [place] 5/325 PO 1 each Q4H PRN Administration Pain, Moderate (4-6) Albuterol 2.5 mg 06/26/19 16:37 Proventil IH Q4HRT PRN Shortness Of Breath Albuterol/Ipratropium 1 ampul 06/26/19 20:00 06/27/19 09:41 Duoneb *Not For Prn Use* IH 1 ampul Q6HRT IVETTE Administration Amiodarone HCl 200 mg 06/26/19 10:00 06/27/19 10:52 Cordarone PO 200 mg DAILY IVETTE Administration Arformoterol Tartrate 15 mcg 06/26/19 20:00 06/27/19 09:41 Brovana Nebu IH 15 mcg Q12HRT IVETTE Administration Aspirin 81 mg 06/26/19 10:00 06/27/19 10:52 Baby Aspirin PO 81 mg QDAY IVETTE Administration Budesonide 0.5 mg 06/26/19 20:00 06/27/19 09:41 Pulmicort IH 0.5 mg Q12HRT IVETTE Administration Dabigatran 150 mg 06/26/19 10:00 06/27/19 10:52 Pradaxa PO 150 mg BID IVETTE Administration Protocol Dextrose 50 ml 06/26/19 02:20 D50w (25gm) Syringe IV Q30MIN PRN Hypoglycemia Protocol Docusate Sodium 100 mg 06/26/19 10:00 06/27/19 10:51 Colace PO 100 mg BID IVETTE Administration Glimepiride 2 mg 06/26/19 11:00 06/27/19 10:51 Amaryl PO 2 mg QAM IVETTE Administration Guaifenesin 600 mg 06/26/19 10:00 06/27/19 10:52 Mucinex Er PO 600 mg BID IVETTE Administration Azithromycin 500 mg/ Sodium 250 mls @ 250 mls/hr 06/26/19 22:00 06/26/19 22: 30 Chloride IV 250 mls/hr Q24H IVETTE Administration Protocol Sodium Chloride 1,000 mls @ 125 mls/hr 06/26/19 13:00 06/27/19 06:42 Nacl 0.9% 1000 Ml IV 125 mls/hr DIRECT IVETTE Administration Insulin Human Lispro 0 unit 06/26/19 07:30 06/27/19 13:00 Humalog SUB-Q 3 unit ACHS IVETTE Administration Protocol Methylprednisolone Sodium Succinate 80 mg 06/26/19 10:00 06/27/19 11:00 Solu-Medrol IV 80 mg Q8H IVETTE Administration Metoprolol Tartrate 25 mg 06/26/19 10:00 06/27/19 10:52 Metoprolol PO 25 mg BID IVETTE Administration Morphine Sulfate 2 mg 06/27/19 10:10 06/27/19 11:01 Morphine IV 2 mg Q4H PRN Administration Pain , Severe (7-10) Pantoprazole Sodium 40 mg 06/26/19 12:00 06/27/19 10:53 Protonix IV 40 mg QDAY IVETTE Administration Simethicone 80 mg 06/26/19 11:03 06/26/19 22:30 Mylicon PO 80 mg Q6H PRN Administration Gas pain Sodium Chloride 10 ml 06/26/19 10:00 06/27/19 10:53 Sodium Chloride Flush Syringe 10 Ml IV 10 ml BID IVETTE Administration Sodium Chloride 10 ml 06/26/19 02:20 06/27/19 01:58 Sodium Chloride Flush Syringe 10 Ml IV 10 ml PRN PRN Administration LINE FLUSH
[2019-06-27] MEDS: SODIUM BICARBONATE 650 MG TAB PO SCH (20:00)
--- NOTE | 2019-06-27 20:44 | Ultrasound Report ---
ULTRASOUND ABDOMEN, COMPLETE INDICATION: RUQ PAIN AND JODI. COMPARISON: No relevant prior imaging study available. FINDINGS: Pancreas: No significant abnormality. Abdominal Aorta: No significant abnormality. IVC: No significant abnormality. Liver: Normal in size with generalized increased echotexture. No additional significant abnormality. Gallbladder: No significant abnormality. Bile ducts: No significant abnormality. Common bile duct measures 2 mm. Kidneys: There is mild bilateral renal cortical thinning without additional significant abnormalities . Spleen: No significant abnormality. Free fluid: None. Additional Findings: None. IMPRESSION: 1. Probable hepatic steatosis. 2. Mild bilateral renal cortical thinning. Signer Name: Tyron Londono MD Signed: 06/27/2019 8:40 PM Workstation Name: [id number]
[2019-06-27] MEDS: AZITHROMYCIN 500 MG in SODIUM CHLORIDE 0.9% 250ML 250 ML IV SCH (22:00)
[2019-06-27] MEDS ORDERED: INSULIN GLARGINE 100 UNITS/ML SUB-Q SCH (22:00)
[2019-06-28] MEDS: IPRATROPIUM/ALBUTEROL SULFATE 3 ML AMPUL.NEB IH SCH ×4 (01:25→20:21)
[2019-06-28] MEDS: SODIUM CHLORIDE 0.9% 1000 ML 1,000 ML IV SCH (05:18)
[2019-06-28] MEDS: BUDESONIDE 0.5 MG/2 ML NEBU IH SCH ×2 (07:40→20:21)
[2019-06-28] MEDS: ARFORMOTEROL 15 MCG/2 ML NEBU IH SCH ×2 (07:40→20:21)
[2019-06-28] MEDS: INSULIN LISPRO 100 UNIT/ML SUB-Q SCH ×4 (08:25→22:45)
[2019-06-28] MEDS: SODIUM BICARBONATE 650 MG TAB PO SCH ×3 (09:51→22:38)
[2019-06-28] MEDS: HYDROcodone/ACETAMINOPHEN 5-325 MG TAB PO PRN (09:51)
[2019-06-28] MEDS: AMIODARONE 200 MG TAB PO SCH (09:51)
[2019-06-28] MEDS: ASPIRIN 81 MG TAB CHEW PO SCH (09:51)
[2019-06-28] MEDS: guaiFENesin ER 600 MG TAB PO SCH ×2 (09:51→22:38)
[2019-06-28] MEDS: DABIGATRAN 150 MG CAP PO SCH ×2 (09:51→22:38)
[2019-06-28] MEDS: DOCUSATE SODIUM 100 MG CAP PO SCH ×2 (09:52→22:38)
[2019-06-28] MEDS: predniSONE 20 MG TAB PO SCH (09:52)
[2019-06-28] MEDS: METOPROLOL TARTRATE 50 MG TAB PO SCH ×2 (09:53→22:38)
--- NOTE | 2019-06-28 09:53 | Progress Note ---
Assessment and Plan Assessment and plan: Acute Bronchitis -Improving -Continue IV antibiotic, oral steroid and neb tx. JODI, probably vasomotor nephropathy -On IV fluid, will monitor creatinine level -Avoid nephrotoxic agents -Abdominal ultrasound neg for hydronephrosis -consider nephrology consult if no improvement Right upper quadrant abdominal pain -Abdominal ultrasound neg except for hepatic steatosis Odynophagia -GI consulted -Continue IV Protonix AOCD -H/H stable -iron panel pending Paroxysmal Afib -Rate controlled on BB -Continue Pradaxa DM2 with hyperglycemia -Continue SSI and glimepiride, Lantus added -HgbA1C: 6.1 HTN -Controlled on BB Metabolic acidosis -Likely secondary to the JODI -On oral supplements, will monitor level Hyperkalemia -On IV fluid, will monitor level Morbid obesity with BMI of 42 -Lifestyle modification recommended DVT PPX -SCD's, Pradaxa Disposition: Pending GI evaluation. DC per clinical course History Interval history: Patient continues to complain of pain with swallowing Hospitalist Physical - Constitutional Vitals: Temp Pulse Resp BP Pulse Ox 97.4 F L 65 18 127/59 99 06/28/19 08:14 06/28/19 08:14 06/28/19 08:14 06/28/19 08:14 06/28/19 08:14 General appearance: Present: no acute distress, obese - EENT Eyes: Present: PERRL, EOM intact ENT: hearing intact, clear oral mucosa - Neck Neck: Present: supple - Respiratory Respiratory effort: normal Respiratory: bilateral: diminished, wheezing - Cardiovascular Rhythm: regular Heart Sounds: Present: S1 & S2 - Extremities Extremities: No edema - Abdominal General gastrointestinal: soft, non-tender, normal bowel sounds - Integumentary Integumentary: Present: warm, dry - Psychiatric Psychiatric: cooperative - Neurologic Neurologic: CNII-XII intact Results - Labs CBC & Chem 7: 06/27/19 04:13 06/27/19 04:13 Labs: Laboratory Last Values WBC 8.5 K/mm3 (4.5-11.0) 06/27/19 04:13 RBC 3.24 M/mm3 (3.65-5.03) L 06/27/19 04:13 Hgb 7.8 gm/dl (10.1-14.3) L 06/27/19 04:13 Hct 26.0 % (30.3-42.9) L 06/27/19 04:13 MCV 80 fl (79-97) 06/27/19 04:13 MCH 24 pg (28-32) L 06/27/19 04:13 MCHC 30 % (30-34) 06/27/19 04:13 RDW 18.6 % (13.2-15.2) H 06/27/19 04:13 Plt Count 249 K/mm3 (140-440) 06/27/19 04:13 Lymph % (Auto) [employer] 06/27/19 04:13 [place] % (Auto) [employer] 06/27/19 04:13 Eos % (Auto) [employer] 06/27/19 04:13 Baso % (Auto) [employer] 06/27/19 04:13 Lymph # [employer] 06/27/19 04:13 [place] # [employer] 06/27/19 04:13 Eos # [employer] 06/27/19 04:13 Baso # [employer] 06/27/19 04:13 Add Manual Diff Complete 06/27/19 04:13 Total Counted 100 06/27/19 04:13 Seg Neutrophils % [employer] 06/27/19 04:13 Seg Neuts % (Manual) 92.0 % (40.0-70.0) H 06/27/19 04:13 Band Neutrophils % 0 % 06/27/19 04:13 Lymphocytes % (Manual) 6.0 % (13.4-35.0) L 06/27/19 04:13 Reactive Lymphs % (Man) 0 % 06/27/19 04:13 Monocytes % (Manual) 2.0 % (0.0-7.3) 06/27/19 04:13 Eosinophils % (Manual) 0 % (0.0-4.3) 06/27/19 04:13 Basophils % (Manual) 0 % (0.0-1.8) 06/27/19 04:13 Metamyelocytes % 0 % 06/27/19 04:13 Myelocytes % 0 % 06/27/19 04:13 Promyelocytes % 0 % 06/27/19 04:13 Blast Cells % 0 % 06/27/19 04:13 Nucleated RBC % Not Reportable 06/27/19 04:13 Seg Neutrophils # [employer] 06/27/19 04:13 Seg Neutrophils # Man 7.8 K/mm3 (1.8-7.7) H 06/27/19 04:13 Band Neutrophils # 0.0 K/mm3 06/27/19 04:13 Lymphocytes # (Manual) 0.5 K/mm3 (1.2-5.4) L 06/27/19 04:13 Abs React Lymphs (Man) 0.0 K/mm3 06/27/19 04:13 Monocytes # (Manual) 0.2 K/mm3 (0.0-0.8) 06/27/19 04:13 Eosinophils # (Manual) 0.0 K/mm3 (0.0-0.4) 06/27/19 04:13 Basophils # (Manual) 0.0 K/mm3 (0.0-0.1) 06/27/19 04:13 Metamyelocytes # 0.0 K/mm3 06/27/19 04:13 Myelocytes # 0.0 K/mm3 06/27/19 04:13 Promyelocytes # 0.0 K/mm3 06/27/19 04:13 Blast Cells # 0.0 K/mm3 06/27/19 04:13 WBC Morphology Not Reportable 06/27/19 04:13 Hypersegmented Neuts Not Reportable 06/27/19 04:13 Hyposegmented Neuts Not Reportable 06/27/19 04:13 Hypogranular Neuts Not Reportable 06/27/19 04:13 Smudge Cells Not Reportable 06/27/19 04:13 Toxic Granulation Not Reportable 06/27/19 04:13 Toxic Vacuolation Not Reportable 06/27/19 04:13 Dohle Bodies Not Reportable 06/27/19 04:13 Pelger-Huet Anomaly Not Reportable 06/27/19 04:13 Sami Rods Not Reportable 06/27/19 04:13 Platelet Estimate Consistent w auto 06/27/19 04:13 Clumped Platelets Not Reportable 06/27/19 04:13 Plt Clumps, EDTA Not Reportable 06/27/19 04:13 Large Platelets Not Reportable 06/27/19 04:13 Giant Platelets Not Reportable 06/27/19 04:13 Platelet Satelliting Not Reportable 06/27/19 04:13 Plt Morphology Comment Not Reportable 06/27/19 04:13 RBC Morphology Not Reportable 06/27/19 04:13 Dimorphic RBCs Not Reportable 06/27/19 04:13 Polychromasia Rare 06/27/19 04:13 Hypochromasia Few 06/27/19 04:13 Poikilocytosis Not Reportable 06/27/19 04:13 Anisocytosis Not Reportable 06/27/19 04:13 Microcytosis Not Reportable 06/27/19 04:13 Macrocytosis Not Reportable 06/27/19 04:13 Spherocytes Not Reportable 06/27/19 04:13 Pappenheimer Bodies Not Reportable 06/27/19 04:13 Sickle Cells Not Reportable 06/27/19 04:13 Target Cells Not Reportable 06/27/19 04:13 Tear Drop Cells Rare 06/27/19 04:13 Ovalocytes Not Reportable 06/27/19 04:13 Helmet Cells Not Reportable 06/27/19 04:13 Wu-[place] Bodies Not Reportable 06/27/19 04:13 [place] Rings Not Reportable 06/27/19 04:13 [place] Cells Not Reportable 06/27/19 04:13 Bite Cells Not Reportable 06/27/19 04:13 Crenated Cell Not Reportable 06/27/19 04:13 Elliptocytes Rare 06/27/19 04:13 Acanthocytes (Spur) Not Reportable 06/27/19 04:13 Rouleaux Not Reportable 06/27/19 04:13 Hemoglobin C Crystals Not Reportable 06/27/19 04:13 Schistocytes Not Reportable 06/27/19 04:13 Malaria parasites Not Reportable 06/27/19 04:13 Joey Bodies Not Reportable 06/27/19 04:13 Hem Pathologist Commnt No 06/27/19 04:13 D-Dimer < 135.00 ng/mlDDU (0-234) 06/25/19 20:04 Sodium 138 mmol/L (137-145) 06/27/19 04:13 Potassium 5.3 mmol/L (3.6-5.0) H 06/27/19 04:13 Chloride 102.7 mmol/L (98-107) 06/27/19 04:13 Carbon Dioxide 18 mmol/L (22-30) L 06/27/19 04:13 Anion Gap 23 mmol/L 06/27/19 04:13 BUN 33 mg/dL (7-17) H 06/27/19 04:13 Creatinine 1.7 mg/dL (0.7-1.2) H 06/27/19 04:13 Estimated GFR 30 ml/min 06/27/19 04:13 BUN/Creatinine Ratio 19 % 06/27/19 04:13 Glucose 117 mg/dL (65-100) H 06/27/19 04:13 POC Glucose 83 (70-105) 06/28/19 08:53 Hemoglobin A1c 6.1 % (4-6) H 06/26/19 05:46 Calcium 9.0 mg/dL (8.4-10.2) 06/27/19 04:13 Magnesium 2.40 mg/dL (1.7-2.3) H 06/27/19 04:13 Total Creatine Kinase 64 units/L (30-135) 06/25/19 20:04 CK-MB (CK-2) 1.7 ng/mL (0.0-4.0) 06/25/19 20:04 CK-MB (CK-2) Rel Index 2.6 (0-4) 06/25/19 20:04 Troponin T < 0.010 ng/mL (0.00-0.029) 06/26/19 13:18 Active Medications - Current Medications Current Medications: Generic Name Dose Route Start Last Admin Trade Name Freq PRN Reason Stop Dose Admin Acetaminophen 650 mg 06/26/19 02:20 06/27/19 06:37 Tylenol PO 650 mg Q4H PRN Administration Pain MILD(1-3)/Fever >100.5/MCCALL Acetaminophen/Hydrocodone Bitart 1 each 06/26/19 15:00 06/27/19 13:54 [place] 5/325 PO 1 each Q4H PRN Administration Pain, Moderate (4-6) Albuterol 2.5 mg 06/26/19 16:37 Proventil IH Q4HRT PRN Shortness Of Breath Albuterol/Ipratropium 1 ampul 06/26/19 20:00 06/28/19 07:40 Duoneb *Not For Prn Use* IH 1 ampul Q6HRT IVETTE Administration Amiodarone HCl 200 mg 06/26/19 10:00 06/27/19 10:52 Cordarone PO 200 mg DAILY IVETTE Administration Arformoterol Tartrate 15 mcg 06/26/19 20:00 06/28/19 07:40 Brovana Nebu IH 15 mcg Q12HRT IVETTE Administration Aspirin 81 mg 06/26/19 10:00 06/27/19 10:52 Baby Aspirin PO 81 mg QDAY IVETTE Administration Budesonide 0.5 mg 06/26/19 20:00 06/28/19 07:40 Pulmicort IH 0.5 mg Q12HRT IVETTE Administration Dabigatran 150 mg 06/26/19 10:00 06/27/19 22:00 Pradaxa PO 150 mg BID IVETTE Administration Protocol Dextrose 50 ml 06/26/19 02:20 D50w (25gm) Syringe IV Q30MIN PRN Hypoglycemia Protocol Docusate Sodium 100 mg 06/26/19 10:00 06/27/19 22:01 Colace PO 100 mg BID IVETTE Administration Glimepiride 2 mg 06/26/19 11:00 06/27/19 10:51 Amaryl PO 2 mg QAM IVETTE Administration Guaifenesin 600 mg 06/26/19 10:00 06/27/19 22:00 Mucinex Er PO 600 mg BID IVETTE Administration Azithromycin 500 mg/ Sodium 250 mls @ 250 mls/hr 06/26/19 22:00 06/27/19 22:00 Chloride IV 250 mls/hr Q24H IVETTE Administration Protocol Sodium Chloride 1,000 mls @ 125 mls/hr 06/26/19 13:00 06/28/19 05:18 Nacl 0.9% 1000 Ml IV 125 mls/hr DIRECT IVETTE Administration Insulin Glargine 10 units 06/27/19 22:00 06/27/19 22:01 Lantus SUB-Q 10 units QHS IVETTE Administration Insulin Human Lispro 0 unit 06/26/19 07:30 06/28/19 08:25 Humalog SUB-Q Not Given ACHS IVETTE Protocol Metoprolol Tartrate 25 mg 06/26/19 10:00 06/27/19 22:01 Metoprolol PO 25 mg BID IVETTE Administration Morphine Sulfate 2 mg 06/27/19 10:10 06/27/19 20:05 Morphine IV 2 mg Q4H PRN Administration Pain , Severe (7-10) Pantoprazole Sodium 40 mg 06/26/19 12:00 06/27/19 10:53 Protonix IV 40 mg QDAY IVETTE Administration Prednisone 40 mg 06/28/19 10:00 Deltasone PO QDAY IVETTE Simethicone 80 mg 06/26/19 11:03 06/26/19 22:30 Mylicon PO 80 mg Q6H PRN Administration Gas pain Sodium Bicarbonate 650 mg 06/27/19 20:00 06/27/19 20:00 Sodium Bicarbonate PO 06/29/19 19:59 650 mg TID IVETTE Administration Sodium Chloride 10 ml 06/26/19 10:00 06/27/19 22:03 Sodium Chloride Flush Syringe 10 Ml IV 10 ml BID IVETTE Administration Sodium Chloride 10 ml 06/26/19 02:20 06/27/19 01:58 Sodium Chloride Flush Syringe 10 Ml IV 10 ml PRN PRN Administration LINE FLUSH
[2019-06-28] MEDS: PANTOPRAZOLE 40 MG INJ IV SCH (09:54)
--- NOTE | 2019-06-28 11:01 | Consultation ---
REFERRING PHYSICIAN: Coco More MD INDICATION: Odynophagia. HISTORY OF PRESENT ILLNESS: The patient is a 69-year-old white female with history of coronary artery disease, status post CABG, AFib, on Pradaxa, sick sinus syndrome as well as carotid stenosis, hypertension, diabetes, obesity, gout and high cholesterol. The patient presented to the Emergency Room on 06/28/2019 with complaints of shortness of breath and productive cough with sputum. The patient subsequently was evaluated and admitted for bronchitis and has been managed thereof. The patient reports she still has some shortness of breath. The patient reports for the last week or so, she has been having some difficulty swallowing with pain in the upper esophageal area. She reports it occurs mainly with pills, but also with food. She reports because of that she has been having some problems with swallowing. The patient reports a longstanding history of reflux and has been managed with continued symptoms worsening recently. She denies any lower GI symptoms. The patient subsequently was admitted and GI was called for consultation. PAST MEDICAL HISTORY: 1. AFib, on Pradaxa. 2. Coronary artery disease. 3. Diabetes. 4. GERD. 5. Hypertension. 6. High cholesterol. 7. Sick sinus syndrome. 8. Coronary artery disease, status post CABG. ALLERGIES: GABAPENTIN. MEDICATIONS: Reviewed and updated in chart. SOCIAL HISTORY: Denies alcohol, tobacco or drug abuse. FAMILY HISTORY: Negative for colon cancer, IBD or liver disease. REVIEW OF SYSTEMS: GENERAL: Reports mild weakness. HEENT: No visual complaints or tinnitus. PULMONARY: Reports shortness of breath. CARDIOVASCULAR: Denies chest pain. GASTROINTESTINAL: Reports problems and difficulty swallowing. All points of 13-point review of systems otherwise negative. PHYSICAL EXAMINATION: VITAL SIGNS: Temperature of 97.4, pulse 65, respirations 18, blood pressure 127/60. GENERAL: Obese white female, in mild distress. HEENT: Pupils equal, round and reactive. PULMONARY: Clear to auscultation bilaterally. CARDIOVASCULAR: Regular rate and rhythm. Normal S1, S2. ABDOMEN: Positive bowel sounds, soft. SKIN: No obvious rashes. LABORATORY DATA: Pertinent for white count of 8.5, hemoglobin and hematocrit 7.8 and 26.0, platelet count of 249. Chem-7: Sodium of 138, potassium 5.3, chloride 103, CO2 of 18, BUN and creatinine of 33 and 1.7. ASSESSMENT: A 69-year-old white female with multiple medical problems as noted above, now been seen by GI for upper esophageal odynophagia after being admitted for shortness of breath and bronchitis-like symptoms. The patient reports symptoms are more with pills and with food. She does have a longstanding history of reflux and does report that has been worsening. Possibility of esophagitis versus other pathology. Management as noted below. PLAN: 1. The patient will require EGD when stable, but given current pulmonary and cardiac issues will require clearance as such. 2. We will schedule barium swallow for further evaluation at this time. 3. Soft diet, advance as tolerated. 4. PPI daily. 5. We will follow further recommendation based on progress. JOB# [id number] CAB/NTS
[2019-06-28 11:25] LABS: Calcium 8.9 mg/dL (8.4-10.2)
[2019-06-28] MEDS ORDERED: BISMUTH SUBSALICYLATE 262 MG/15 ML ORAL LIQD PO PRN (13:04)
[2019-06-28] MEDS: MORPHINE 2 MG/1 ML INJ IV PRN (14:39)
[2019-06-28] MEDS: FERROUS SULFATE 325 MG TAB PO SCH ×2 (14:39→22:42)
[2019-06-28] MEDS: POLYETHYLENE GLYCOL 3350 17 GM POWDER PO SCH (14:39)
[2019-06-28] MEDS: AZITHROMYCIN 500 MG in SODIUM CHLORIDE 0.9% 250ML 250 ML IV SCH (22:48)
[2019-06-29 02:13] LABS: Creatinine,Urine 40.1 mg/dL (0.1-20.0)
[2019-06-29 02:21] LABS: Bacteria,Urine 2+ /HPF (Negative); Bilirubin,Urine NEG (Negative); Blood,Urine NEG (Negative); Color,Urine Yellow (Yellow); Hyaline Casts,Urine 2 /LPF; Mucus,Urine FEW /HPF; Protein,Urine <15 mg/dL mg/dL (Negative); Urobilinogen,Urine < 2.0 mg/dL (<2.0)
[2019-06-29] MEDS: IPRATROPIUM/ALBUTEROL SULFATE 3 ML AMPUL.NEB IH SCH ×4 (02:39→19:35)
[2019-06-29] MEDS: SODIUM CHLORIDE 0.9% 1000 ML 1,000 ML IV SCH (05:51)
[2019-06-29] MEDS: MORPHINE 2 MG/1 ML INJ IV PRN (05:53)
[2019-06-29 08:13] LABS: Calcium 8.8 mg/dL (8.4-10.2)
[2019-06-29] MEDS: ARFORMOTEROL 15 MCG/2 ML NEBU IH SCH ×2 (08:49→19:34)
[2019-06-29] MEDS: BUDESONIDE 0.5 MG/2 ML NEBU IH SCH ×2 (08:49→19:35)
--- NOTE | 2019-06-29 09:24 | Consultation ---
History of Present Illness - Reason for Consult Consult date: 06/29/19 acute renal failure, chronic renal failure - History of Present Illness The patient is a 69 YO female with history significant for Obesity, DM, Hypertension, HLD, Coronary artery disease s/p CABG (2013), A. fib on Pradaxa, S SS s/p dual chamber pacemaker, PAD, left carotid stenosis, Gout and CKD who presented to [facility] ED on 06/25 with complaints of SOB, productive cough and wheezing of few days duration. Pt also reports that she is unable to walk more than 3 steps without becoming SOB. Additional symptoms include decreased appetite and poor PO intake. At her PCP's office she was found to have saturation of 98% at rest and 91% with exertion. Her PCP (Dr. Marcia Vazquez) suggested that she go to the ED for further evaluation. Work up includes negative D-Dimer, CXR showed cardomegaly and creatinine 1.7. Nephrology was consulted for further evaluation. Past History Past Medical History: atrial fib (on Pradaxa), arthritis, CAD, diabetes, GERD, hypertension, hyperlipidemia, other (sick sinus syndrome, PAD, left carotid stenosis, obesity, gout) Past Surgical History: CABG (2013), Other (dual-chamber pacemaker) Social history: lives with family Family history: no significant family history Medications and Allergies Allergies Allergy/AdvReac Type Severity Reaction Status Date / Time gabapentin Allergy Unknown Verified 08/17/16 17:53 Home Medications Medication Instructions Recorded Confirmed Last Taken Type Omeprazole 20 mg PO DAILY 01/10/16 06/26/19 06/02/16 History metFORMIN [Glucophage] 1,000 mg PO BID #60 tablet 01/11/16 06/26/19 06/25/19 Rx Aspirin [Aspirin BABY CHEW TAB] 81 mg PO QDAY #30 tab.chew 05/04/16 06/27/19 06/26/19 Rx 81 mg Dabigatran [Pradaxa] 150 mg PO BID #60 capsule 05/04/16 06/27/19 06/25/19 Rx 150 mg Colchicine [Colcrys] 0.6 mg PO BID #10 tablet 06/05/16 06/27/19 06/26/19 Rx 0.6mg Glimepiride [Amaryl] 10 mg PO QAM 08/18/16 06/27/19 06/25/19 History 10 mg Lisinopril [Zestril TAB] 20 mg PO BID 08/18/16 06/27/19 06/25/19 History 20 mg Amiodarone [Cordarone 200 MG TAB] 200 mg PO DAILY 30 Days tablet 08/20/16 06/27/19 06/25/19 Rx 200 mg Evolocumab [Repatha Syringe] 140 mg SUB-Q Q15D 06/26/19 06/27/19 Unknown History Metoprolol [Lopressor TAB] 25 mg PO BID 06/26/19 06/27/19 06/25/19 History 25 mg hydroCHLOROthiazide [HCTZ] 25 mg PO QDAY 06/26/19 06/27/19 06/25/19 History 25 mg Active Meds: Active Medications Acetaminophen (Tylenol) 650 mg PO Q4H PRN PRN Reason: Pain MILD(1-3)/Fever >100.5/MCCALL Last Admin: 06/27/19 06:37 Dose: 650 mg Documented by: Acetaminophen/Hydrocodone Bitart (Bland 5/325) 1 each PO Q4H PRN PRN Reason: Pain, Moderate (4-6) Last Admin: 06/28/19 09:51 Dose: 1 each Documented by: Albuterol (Proventil) 2.5 mg IH Q4HRT PRN PRN Reason: Shortness Of Breath Albuterol/Ipratropium (Duoneb *Not For Prn Use*) 1 ampul IH Q6HRT [facility] Last Admin: 06/29/19 08:49 Dose: 1 ampul Documented by: Amiodarone HCl (Cordarone) 200 mg PO DAILY [facility] Last Admin: 06/28/19 09:51 Dose: 200 mg Documented by: Arformoterol Tartrate (Brovana Nebu) 15 mcg IH Q12HRT [facility] Last Admin: 06/29/19 08:49 Dose: 15 mcg Documented by: Aspirin (Baby Aspirin) 81 mg PO QDAY [facility] Last Admin: 06/28/19 09:51 Dose: 81 mg Documented by: Bismuth Subsalicylate (Pepto Bismol) 262 mg PO Q6H PRN PRN Reason: Indigestion Last Admin: 06/28/19 14:40 Dose: 262 mg Documented by: Budesonide (Pulmicort) 0.5 mg IH Q12HRT [facility] Last Admin: 06/29/19 08:49 Dose: 0.5 mg Documented by: Dabigatran (Pradaxa) 150 mg PO BID [facility]; Protocol Last Admin: 06/28/19 22:38 Dose: 150 mg Documented by: Dextrose (D50w (25gm) Syringe) 50 ml IV Q30MIN PRN; Protocol PRN Reason: Hypoglycemia Docusate Sodium (Colace) 100 mg PO BID [facility] Last Admin: 06/28/19 22:38 Dose: 100 mg Documented by: Ferrous Sulfate (Feosol) 325 mg PO TID [facility] Last Admin: 06/28/19 22:42 Dose: 325 mg Documented by: Guaifenesin (Mucinex Er) 600 mg PO BID [facility] Last Admin: 06/28/19 22:38 Dose: 600 mg Documented by: Azithromycin 500 mg/ Sodium (Chloride) 250 mls @ 250 mls/hr IV Q24H [facility]; Protocol Stop: 07/01/19 21:59 Last Admin: 06/28/19 22:48 Dose: 250 mls/hr Documented by: Sodium Chloride (Nacl 0.9% 1000 Ml) 1,000 mls @ 125 mls/hr IV DIRECT [facility] Last Admin: 06/29/19 05:51 Dose: 125 mls/hr Documented by: Insulin Human Lispro (Humalog) 0 unit SUB-Q ACHS [facility]; Protocol Last Admin: 06/28/19 22:45 Dose: Not Given Documented by: Metoprolol Tartrate (Metoprolol) 25 mg PO BID [facility] Last Admin: 06/28/19 22:38 Dose: 25 mg Documented by: Morphine Sulfate (Morphine) 2 mg IV Q4H PRN PRN Reason: Pain , Severe (7-10) Last Admin: 06/29/19 05:53 Dose: 2 mg Documented by: Pantoprazole Sodium (Protonix) 40 mg IV QDAY [facility] Last Admin: 06/28/19 09:54 Dose: 40 mg Documented by: Pneumococcal 13-Valent Conj Vacc (Prevnar 13) 0.5 ml IM .ONCE ONE Stop: 06/29/19 12:01 Polyethylene Glycol (Miralax 3350) 17 gm PO QDAY [facility] Last Admin: 06/28/19 14:39 Dose: 17 gm Documented by: Prednisone (Deltasone) 40 mg PO QDAY [facility] Last Admin: 06/28/19 09:52 Dose: 40 mg Documented by: Simethicone (Mylicon) 80 mg PO Q6H PRN PRN Reason: Gas pain Last Admin: 06/26/19 22:30 Dose: 80 mg Documented by: Sodium Bicarbonate (Sodium Bicarbonate) 650 mg PO TID [facility] Stop: 06/29/19 19:59 Last Admin: 06/28/19 22:38 Dose: 650 mg Documented by: Sodium Chloride (Sodium Chloride Flush Syringe 10 Ml) 10 ml IV BID [facility] Last Admin: 06/28/19 22:39 Dose: 10 ml Documented by: Sodium Chloride (Sodium Chloride Flush Syringe 10 Ml) 10 ml IV PRN PRN PRN Reason: LINE FLUSH Last Admin: 06/27/19 01:58 Dose: 10 ml Documented by: Review of Systems Constitutional: anorexia, fatigue, poor appetite, no weight loss, no weight ga in, no fever, no chills Breasts: deferred Cardiovascular: shortness of breath, dyspnea on exertion, high blood pressure, no chest pain, no orthopnea, no edema, no syncope, no lightheadedness Respiratory: cough, cough with sputum, shortness of breath, dyspnea on exertion, congestion, wheezing, no hemoptysis Gastrointestinal: no abdominal pain, no nausea, no vomiting, no diarrhea, no coffee ground emesis, no melena Genitourinary Female: no dysuria, no hematuria Rectal: no bleeding Musculoskeletal: no muscle weakness, no muscle cramps Integumentary: no rash, no sores, no wounds, no jaundice Neurological: no syncope, no convulsions, no aphasia, no change in speech, no ch jeff in mentation, no confusion, no memory loss Exam - Vital Signs Vital signs: Vital Signs Temp Pulse Resp BP Pulse Ox 98 F 64 16 134/57 96 06/25/19 18:41 06/25/19 18:41 06/25/19 18:41 06/25/19 18:41 06/25/19 18:41 - General Appearance General appearance: well-developed, well-nourished, appears stated age, obese, other (no distress) EENT: ATNC, PERRL, mucous membranes dry, hearing intact, vision intact Neck: Present: neck supple, trachea midline Respiratory: Clear to Ascultation Heart: S1S2, no murmurs Gastrointestinal: Present: normoactive bowel sounds, obese. Absent: tenderness, distended Integumentary: no rash, warm and dry Neurologic: no focal deficit, no asterixis Musculoskeletal: Present: other (no edema) Psychiatric: cooperative Results - Lab Results 06/27/19 04:13 06/29/19 06:58 Most recent lab results Calcium 8.8 mg/dL (8.4-10.2) 06/29/19 06:58 Phosphorus 4.20 mg/dL (2.5-4.5) 06/29/19 06:58 Magnesium 2.20 mg/dL (1.7-2.3) 06/29/19 06:58 Urine Creatinine 40.1 mg/dL (0.1-20.0) H 06/28/19 Unknown Urine Sodium 67 mmol/L 06/28/19 Unknown - Image Kidney/bladder ultrasound: report reviewed Assessment and Plan 1. Acute kidney injury: Likely vasomotor JODI superimposed on CKD. UA is bland. Renal US was negative for hydronephrosis. Continue IV fluids. Monitor renal function. Avoid nephrotoxic agents. Meds dosage based on GFR. 2. FEN: Hyperkalemia, improved. Metabolic acidosis, monitor. Monitor lytes. 3. Acute bronchitis. 4. A.fib: On Pradaxa. 5. DM-2. 6. Hypertension: Monitor BP. 7. Normochromic Anemia: POA. 8. Odynophagia.
--- NOTE | 2019-06-29 10:37 | Fluoroscopy Report ---
BARIUM SWALLOW Indication: odynophagia. Technique: Single and double contrast barium technique utilized to evaluate the esophagus. FINDINGS: To begin the exam, swallowing was evaluated in the lateral position under direct fluorosco py. Swallowing was normal. No mucosal irregularity, mass, mass effect, or critical stenosis. There were no abnormal tertiary c ontractions as seen with dysmotility. No gastroesophageal reflux. IMPRESSION: Unremarkable exam. Fluoroscopic time: 0.9 minutes Number of fluoroscopic images: 23 Signer Name: Miguel Angel Reyes Jr, MD Signed: 06/29/2019 10:33 AM Workstation Name: [id number]
[2019-06-29] MEDS: INSULIN LISPRO 100 UNIT/ML SUB-Q SCH ×4 (10:52→22:19)
[2019-06-29] MEDS: SODIUM BICARBONATE 650 MG TAB PO SCH ×2 (10:53→13:44)
[2019-06-29] MEDS: FERROUS SULFATE 325 MG TAB PO SCH ×3 (10:53→22:17)
--- NOTE | 2019-06-29 11:35 | Gastroenterology Progress Note ---
Assessment and Plan 1.odynophagia 2.H/o GERD -symptoms with pills and food -etiology-possibly esophagitis vs other -esophagram pending for today for further evaluation -continue PPI -diet as tolerated -continue supportive care -EGD based on progress/above results once respiratory status improved (would need pulmonary/cardiac clearance) -will follow Subjective Date of service: 06/29/19 Principal diagnosis: odynophagia Interval history: No acute distress but with continued SOB. Objective - Constitutional Vitals: Temp Pulse Resp BP Pulse Ox 98.1 F 65 18 123/64 95 06/29/19 08:13 06/29/19 08:13 06/29/19 10:00 06/29/19 08:13 06/29/19 08:13 General appearance: no acute distress - Respiratory Respiratory: bilateral: diminished, wheezing - Cardiovascular Rhythm: regular - Gastrointestinal General gastrointestinal: Present: soft, non-tender, non-distended, normal bowel sounds - Neurologic Neurological: alert and oriented x3 - Labs CBC & Chem 7: 06/27/19 04:13 06/29/19 06:58 Labs: Laboratory Results - last 24 hr 06/28/19 06/28/19 06/28/19 10:50 10:50 12:11 Sodium Potassium Chloride Carbon Dioxide Anion Gap BUN Creatinine Estimated GFR BUN/Creatinine Ratio Glucose POC Glucose 81 Calcium Phosphorus Magnesium Vitamin B12 376.1 Folate 5.43 L PTH Intact Urine Color Urine Turbidity Urine pH Ur Specific [place] Urine Protein Urine Glucose (UA) Urine Ketones Urine Blood Urine Nitrite Urine Bilirubin Urine Urobilinogen Ur Leukocyte Esterase Urine WBC (Auto) Urine RBC (Auto) U Epithel Cells (Auto) Urine Bacteria (Auto) Hyaline Casts Urine Mucus Urine Eosinophils Urine Creatinine Urine Sodium 06/28/19 06/28/19 06/28/19 18:40 22:12 Unknown Sodium Potassium Chloride Carbon Dioxide Anion Gap BUN Creatinine Estimated GFR BUN/Creatinine Ratio Glucose POC Glucose 230 H 146 H Calcium Phosphorus Magnesium Vitamin B12 Folate PTH Intact Urine Color Yellow Urine Turbidity Clear Urine pH 5.0 Ur Specific [place] 1.009 Urine Protein <15 mg/dl Urine Glucose (UA) Neg Urine Ketones Neg Urine Blood Neg Urine Nitrite Neg Urine Bilirubin Neg Urine Urobilinogen < 2.0 Ur Leukocyte Esterase Neg Urine WBC (Auto) 1.0 Urine RBC (Auto) 1.0 U Epithel Cells (Auto) < 1.0 Urine Bacteria (Auto) 2+ Hyaline Casts 2 Urine Mucus Few Urine Eosinophils Urine Creatinine Urine Sodium 06/28/19 06/28/19 06/29/19 Unknown Unknown 06:58 Sodium 141 Potassium 4.8 Chloride 108.1 H Carbon Dioxide 15 L Anion Gap 23 BUN 37 H Creatinine 1.7 H Estimated GFR 30 BUN/Creatinine Ratio 22 Glucose 70 POC Glucose Calcium 8.8 Phosphorus 4.20 Magnesium 2.20 Vitamin B12 Folate PTH Intact Urine Color Urine Turbidity Urine pH Ur Specific [place] Urine Protein Urine Glucose (UA) Urine Ketones Urine Blood Urine Nitrite Urine Bilirubin Urine Urobilinogen Ur Leukocyte Esterase Urine WBC (Auto) Urine RBC (Auto) U Epithel Cells (Auto) Urine Bacteria (Auto) Hyaline Casts Urine Mucus Urine Eosinophils None seen Urine Creatinine 40.1 H Urine Sodium 67 06/29/19 06/29/19 06:58 08:17 Sodium Potassium Chloride Carbon Dioxide Anion Gap BUN Creatinine Estimated GFR BUN/Creatinine Ratio Glucose POC Glucose 70 Calcium Phosphorus Magnesium Vitamin B12 Folate PTH Intact 181.5 H Urine Color Urine Turbidity Urine pH Ur Specific [place] Urine Protein Urine Glucose (UA) Urine Ketones Urine Blood Urine Nitrite Urine Bilirubin Urine Urobilinogen Ur Leukocyte Esterase Urine WBC (Auto) Urine RBC (Auto) U Epithel Cells (Auto) Urine Bacteria (Auto) Hyaline Casts Urine Mucus Urine Eosinophils Urine Creatinine Urine Sodium
[2019-06-29] MEDS ORDERED: FLU VACC QUAD 2019-20 (3 YR UP)/PF 60 MCG/0.5 ML SYRINGE IM ONE (12:00)
[2019-06-29] MEDS ORDERED: PNEUMOC 13-VAL CONJ-DIP CRM/PF 0.5 ML IM ONE (12:00)
[2019-06-29] MEDS: guaiFENesin ER 600 MG TAB PO SCH ×2 (12:15→22:18)
[2019-06-29] MEDS: METOPROLOL TARTRATE 50 MG TAB PO SCH ×2 (12:15→22:18)
[2019-06-29] MEDS: ASPIRIN 81 MG TAB CHEW PO SCH (12:16)
[2019-06-29] MEDS: DABIGATRAN 150 MG CAP PO SCH ×2 (12:16→22:18)
[2019-06-29] MEDS: AMIODARONE 200 MG TAB PO SCH (12:16)
[2019-06-29] MEDS: DOCUSATE SODIUM 100 MG CAP PO SCH ×2 (12:17→22:18)
[2019-06-29] MEDS: PANTOPRAZOLE 40 MG INJ IV SCH (12:17)
[2019-06-29] MEDS: predniSONE 20 MG TAB PO SCH (12:17)
[2019-06-29] MEDS: POLYETHYLENE GLYCOL 3350 17 GM POWDER PO SCH (12:20)
[2019-06-29] MEDS: HYDROcodone/ACETAMINOPHEN 5-325 MG TAB PO PRN ×2 (13:45→22:23)
--- NOTE | 2019-06-29 16:13 | Progress Note ---
Assessment and Plan Assessment and plan: 69-year-old woman who presented to the hospital with pain shortness of breath, wheezing and odynophagia Past medical history; CAD status post CABG, PAF, sick sinus syndrome status post pacemaker, PAD with left carotid stenosis, hypertension, diabetes, obesity, gout, hyperlipidemia. * highly doubt bronchitis, has received steroids and nebs * is currently fluid overloaded, start on IV lasix * Creatinine has been stable, currently 1.7. Last documented creatinine in our system was from 2017. It is likely that this is the patient's baseline creatinine and that she is actually having chronic kidney disease and not acute kidney disease. Nephrology consult pending, hyperkalemia has resolved Renal ultrasound negative for hydronephrosis. * GI consult appreciated, continue Protonix, will likely need EGD when respiratory status has improved. They will need cardiology and pulmonology evaluation prior to procedure.Barium swallow is unremarkable * Rate controlled for A. fib and on Pradaxa for stroke prophylaxis Patient is to continue insulins for type 2 diabetes. Preventative health counseling performed for 17 minutes Patient needs outpatient weight loss clinic Diagnosis Acute bronchitis? highly doubt Acute on chronic diastolic CHF Coronary artery disease Odynophagia A. fib with hypercoagulable state CKD History Interval history: Review of systems Constitutional: No fevers, no malaise, no joint pains CVS: c/o orthopnea and pedal edema, no chest pain GI: No abdominal pain, no diarrhea, no vomiting, no constipation, continues to complain of odynophagia Respiratory: no cough or wheeze Hospitalist Physical - Physical exam Narrative exam: General.: Mild distress HEENT: Moist mucous membranes, extraocular muscles intact, no lymphadenopathy Neck: supple Cardiac: S1-S2 heard Lungs: rales at bases Abdomen: soft , nontender, nondistended, bowel sounds positive Extremities: BL edema Skin: no rash or lesions Neurologic: no gross focal deficits Psych: calm, and cooperative - Constitutional Vitals: Temp Pulse Resp BP Pulse Ox 98.1 F 62 20 123/64 95 06/29/19 08:13 06/29/19 13:26 06/29/19 13:26 06/29/19 12:15 06/29/19 08:13 General appearance: Present: no acute distress, obese Results - Labs CBC & Chem 7: 06/27/19 04:13 07/01/19 03:46 Labs: Laboratory Last Values WBC 8.5 K/mm3 (4.5-11.0) 06/27/19 04:13 RBC 3.24 M/mm3 (3.65-5.03) L 06/27/19 04:13 Hgb 7.8 gm/dl (10.1-14.3) L 06/27/19 04:13 Hct 26.0 % (30.3-42.9) L 06/27/19 04:13 MCV 80 fl (79-97) 06/27/19 04:13 MCH 24 pg (28-32) L 06/27/19 04:13 MCHC 30 % (30-34) 06/27/19 04:13 RDW 18.6 % (13.2-15.2) H 06/27/19 04:13 Plt Count 249 K/mm3 (140-440) 06/27/19 04:13 Lymph % (Auto) [place] 06/27/19 04:13 [place] % (Auto) [place] 06/27/19 04:13 Eos % (Auto) [place] 06/27/19 04:13 Baso % (Auto) [place] 06/27/19 04:13 Lymph # [place] 06/27/19 04:13 [place] # [place] 06/27/19 04:13 Eos # [place] 06/27/19 04:13 Baso # [place] 06/27/19 04:13 Add Manual Diff Complete 06/27/19 04:13 Total Counted 100 06/27/19 04:13 Seg Neutrophils % [place] 06/27/19 04:13 Seg Neuts % (Manual) 92.0 % (40.0-70.0) H 06/27/19 04:13 Band Neutrophils % 0 % 06/27/19 04:13 Lymphocytes % (Manual) 6.0 % (13.4-35.0) L 06/27/19 04:13 Reactive Lymphs % (Man) 0 % 06/27/19 04:13 Monocytes % (Manual) 2.0 % (0.0-7.3) 06/27/19 04:13 Eosinophils % (Manual) 0 % (0.0-4.3) 06/27/19 04:13 Basophils % (Manual) 0 % (0.0-1.8) 06/27/19 04:13 Metamyelocytes % 0 % 06/27/19 04:13 Myelocytes % 0 % 06/27/19 04:13 Promyelocytes % 0 % 06/27/19 04:13 Blast Cells % 0 % 06/27/19 04:13 Nucleated RBC % Not Reportable 06/27/19 04:13 Seg Neutrophils # [place] 06/27/19 04:13 Seg Neutrophils # Man 7.8 K/mm3 (1.8-7.7) H 06/27/19 04:13 Band Neutrophils # 0.0 K/mm3 06/27/19 04:13 Lymphocytes # (Manual) 0.5 K/mm3 (1.2-5.4) L 06/27/19 04:13 Abs React Lymphs (Man) 0.0 K/mm3 06/27/19 04:13 Monocytes # (Manual) 0.2 K/mm3 (0.0-0.8) 06/27/19 04:13 Eosinophils # (Manual) 0.0 K/mm3 (0.0-0.4) 06/27/19 04:13 Basophils # (Manual) 0.0 K/mm3 (0.0-0.1) 06/27/19 04:13 Metamyelocytes # 0.0 K/mm3 06/27/19 04:13 Myelocytes # 0.0 K/mm3 06/27/19 04:13 Promyelocytes # 0.0 K/mm3 06/27/19 04:13 Blast Cells # 0.0 K/mm3 06/27/19 04:13 WBC Morphology Not Reportable 06/27/19 04:13 Hypersegmented Neuts Not Reportable 06/27/19 04:13 Hyposegmented Neuts Not Reportable 06/27/19 04:13 Hypogranular Neuts Not Reportable 06/27/19 04:13 Smudge Cells Not Reportable 06/27/19 04:13 Toxic Granulation Not Reportable 06/27/19 04:13 Toxic Vacuolation Not Reportable 06/27/19 04:13 Dohle Bodies Not Reportable 06/27/19 04:13 Pelger-Huet Anomaly Not Reportable 06/27/19 04:13 Sami Rods Not Reportable 06/27/19 04:13 Platelet Estimate Consistent w auto 06/27/19 04:13 Clumped Platelets Not Reportable 06/27/19 04:13 Plt Clumps, EDTA Not Reportable 06/27/19 04:13 Large Platelets Not Reportable 06/27/19 04:13 Giant Platelets Not Reportable 06/27/19 04:13 Platelet Satelliting Not Reportable 06/27/19 04:13 Plt Morphology Comment Not Reportable 06/27/19 04:13 RBC Morphology Not Reportable 06/27/19 04:13 Dimorphic RBCs Not Reportable 06/27/19 04:13 Polychromasia Rare 06/27/19 04:13 Hypochromasia Few 06/27/19 04:13 Poikilocytosis Not Reportable 06/27/19 04:13 Anisocytosis Not Reportable 06/27/19 04:13 Microcytosis Not Reportable 06/27/19 04:13 Macrocytosis Not Reportable 06/27/19 04:13 Spherocytes Not Reportable 06/27/19 04:13 Pappenheimer Bodies Not Reportable 06/27/19 04:13 Sickle Cells Not Reportable 06/27/19 04:13 Target Cells Not Reportable 06/27/19 04:13 Tear Drop Cells Rare 06/27/19 04:13 Ovalocytes Not Reportable 06/27/19 04:13 Helmet Cells Not Reportable 06/27/19 04:13 Wu-Naturita Bodies Not Reportable 06/27/19 04:13 [place] Rings Not Reportable 06/27/19 04:13 Lashanda Cells Not Reportable 06/27/19 04:13 Bite Cells Not Reportable 06/27/19 04:13 Crenated Cell Not Reportable 06/27/19 04:13 Elliptocytes Rare 06/27/19 04:13 Acanthocytes (Spur) Not Reportable 06/27/19 04:13 Rouleaux Not Reportable 06/27/19 04:13 Hemoglobin C Crystals Not Reportable 06/27/19 04:13 Schistocytes Not Reportable 06/27/19 04:13 Malaria parasites Not Reportable 06/27/19 04:13 Joey Bodies Not Reportable 06/27/19 04:13 Hem Pathologist Commnt No 06/27/19 04:13 D-Dimer < 135.00 ng/mlDDU (0-234) 06/25/19 20:04 Sodium 141 mmol/L (137-145) 06/29/19 06:58 Potassium 4.8 mmol/L (3.6-5.0) 06/29/19 06:58 Chloride 108.1 mmol/L (98-107) H 06/29/19 06:58 Carbon Dioxide 15 mmol/L (22-30) L 06/29/19 06:58 Anion Gap 23 mmol/L 06/29/19 06:58 BUN 37 mg/dL (7-17) H 06/29/19 06:58 Creatinine 1.7 mg/dL (0.7-1.2) H 06/29/19 06:58 Estimated GFR 30 ml/min 06/29/19 06:58 BUN/Creatinine Ratio 22 % 06/29/19 06:58 Glucose 70 mg/dL (65-100) 06/29/19 06:58 POC Glucose 88 (70-105) 06/29/19 12:44 Hemoglobin A1c 6.1 % (4-6) H 06/26/19 05:46 Calcium 8.8 mg/dL (8.4-10.2) 06/29/19 06:58 Phosphorus 4.20 mg/dL (2.5-4.5) 06/29/19 06:58 Magnesium 2.20 mg/dL (1.7-2.3) 06/29/19 06:58 Iron 15 ug/dL (37-170) L 06/28/19 10:50 TIBC 426 mcg/dL (250-450) 06/28/19 10:50 Total Creatine Kinase 64 units/L (30-135) 06/25/19 20:04 CK-MB (CK-2) 1.7 ng/mL (0.0-4.0) 06/25/19 20:04 CK-MB (CK-2) Rel Index 2.6 (0-4) 06/25/19 20:04 Troponin T < 0.010 ng/mL (0.00-0.029) 06/26/19 13:18 Vitamin B12 376.1 pg/mL (211-911) 06/28/19 10:50 Folate 5.43 ng/mL (7.3-26.0) L 06/28/19 10:50 PTH Intact 181.5 pg/mL (15-65) H 06/29/19 06:58 Urine Color Yellow (Yellow) 06/28/19 Unknown Urine Turbidity Clear (Clear) 06/28/19 Unknown Urine pH 5.0 (5.0-7.0) 06/28/19 Unknown Ur Specific [place] 1.009 (1.003-1.030) 06/28/19 Unknown Urine Protein <15 mg/dl mg/dL (Negative) 06/28/19 Unknown Urine Glucose (UA) Neg mg/dL (Negative) 06/28/19 Unknown Urine Ketones Neg mg/dL (Negative) 06/28/19 Unknown Urine Blood Neg (Negative) 06/28/19 Unknown Urine Nitrite Neg (Negative) 06/28/19 Unknown Urine Bilirubin Neg (Negative) 06/28/19 Unknown Urine Urobilinogen < 2.0 mg/dL (<2.0) 06/28/19 Unknown Ur Leukocyte Esterase Neg (Negative) 06/28/19 Unknown Urine WBC (Auto) 1.0 /HPF (0.0-6.0) 06/28/19 Unknown Urine RBC (Auto) 1.0 /HPF (0.0-6.0) 06/28/19 Unknown U Epithel Cells (Auto) < 1.0 /HPF (0-13.0) 06/28/19 Unknown Urine Bacteria (Auto) 2+ /HPF (Negative) 06/28/19 Unknown Hyaline Casts 2 /LPF 06/28/19 Unknown Urine Mucus Few /HPF 06/28/19 Unknown Urine Eosinophils None seen (None Seen) 06/28/19 Unknown Urine Creatinine 40.1 mg/dL (0.1-20.0) H 06/28/19 Unknown Urine Sodium 67 mmol/L 06/28/19 Unknown Active Medications - Current Medications Current Medications: Generic Name Dose Route Start Last Admin Trade Name Freq PRN Reason Stop Dose Admin Acetaminophen 650 mg 06/26/19 02:20 06/27/19 06:37 Tylenol PO 650 mg Q4H PRN Administration Pain MILD(1-3)/Fever >100.5/MCCALL Acetaminophen/Hydrocodone Bitart 1 each 06/26/19 15:00 06/29/19 13:45 [place] 5/325 PO 1 each Q4H PRN Administration Pain, Moderate (4-6) Albuterol 2.5 mg 06/26/19 16:37 Proventil IH Q4HRT PRN Shortness Of Breath Albuterol/Ipratropium 1 ampul 06/26/19 20:00 06/29/19 13:26 Duoneb *Not For Prn Use* IH 1 ampul Q6HRT IVETTE Administration Amiodarone HCl 200 mg 06/26/19 10:00 06/29/19 12:16 Cordarone PO 200 mg DAILY IV[facility]TE Administration Arformoterol Tartrate 15 mcg 06/26/19 20:00 06/29/19 08:49 Brovana Nebu IH 15 mcg Q12HRT IV[facility]TE Administration Aspirin 81 mg 06/26/19 10:00 06/29/19 12:16 Baby Aspirin PO 81 mg QDAY IV[facility]TE Administration Bismuth Subsalicylate 262 mg 06/28/19 13:04 06/28/19 14:40 Pepto Bismol PO 262 mg Q6H PRN Administration Indigestion Budesonide 0.5 mg 06/26/19 20:00 06/29/19 08:49 Pulmicort IH 0.5 mg Q12HRT IV[facility]TE Administration Dabigatran 150 mg 06/26/19 10:00 06/29/19 12:16 Pradaxa PO 150 mg BID IV[facility]TE Administration Protocol Dextrose 50 ml 06/26/19 02:20 D50w (25gm) Syringe IV Q30MIN PRN Hypoglycemia Protocol Docusate Sodium 100 mg 06/26/19 10:00 06/29/19 12:17 Colace PO 100 mg BID IV[facility]TE Administration Ferrous Sulfate 325 mg 06/28/19 14:00 06/29/19 13:45 Feosol PO 325 mg TID IVETTE Administration Guaifenesin 600 mg 06/26/19 10:00 06/29/19 12:15 Mucinex Er PO 600 mg BID IV[facility]TE Administration Azithromycin 500 mg/ Sodium 250 mls @ 250 mls/hr 06/26/19 22:00 06/28/19 22:48 Chloride IV 07/01/19 21:59 250 mls/hr Q24H IV[facility]TE Administration Protocol Sodium Chloride 1,000 mls @ 125 mls/hr 06/26/19 13:00 06/29/19 05:51 Nacl 0.9% 1000 Ml IV 125 mls/hr DIRECT IV[facility]TE Administration Insulin Human Lispro 0 unit 06/26/19 07:30 06/29/19 12:44 Humalog SUB-Q Not Given ACHS IVETTE Protocol Metoprolol Tartrate 25 mg 06/26/19 10:00 06/29/19 12:15 Metoprolol PO 25 mg BID IV[facility]TE Administration Morphine Sulfate 2 mg 06/27/19 10:10 06/29/19 05:53 Morphine IV 2 mg Q4H PRN Administration Pain , Severe (7-10) Pantoprazole Sodium 40 mg 06/26/19 12:00 06/29/19 12:17 Protonix IV 40 mg QDAY IV[facility]TE Administration Polyethylene Glycol 17 gm 06/28/19 14:00 06/29/19 12:20 Miralax 3350 PO 17 gm QDAY IV[facility]TE Administration Prednisone 40 mg 06/28/19 10:00 06/29/19 12:17 Deltasone PO 40 mg QDAY IV[facility]TE Administration Simethicone 80 mg 06/26/19 11:03 06/26/19 22:30 Mylicon PO 80 mg Q6H PRN Administration Gas pain Sodium Bicarbonate 650 mg 06/27/19 20:00 06/29/19 13:44 Sodium Bicarbonate PO 06/29/19 19:59 650 mg TID IVETTE Administration Sodium Chloride 10 ml 06/26/19 10:00 06/29/19 12:30 Sodium Chloride Flush Syringe 10 Ml IV 10 ml BID IVETTE Administration Sodium Chloride 10 ml 06/26/19 02:20 06/27/19 01:58 Sodium Chloride Flush Syringe 10 Ml IV 10 ml PRN PRN Administration LINE FLUSH
[2019-06-29] MEDS: AZITHROMYCIN 500 MG in SODIUM CHLORIDE 0.9% 250ML 250 ML IV SCH (23:16)
[2019-06-30] MEDS: IPRATROPIUM/ALBUTEROL SULFATE 3 ML AMPUL.NEB IH SCH ×4 (01:56→19:28)
[2019-06-30 06:06] LABS: Calcium 8.8 mg/dL (8.4-10.2)
[2019-06-30] MEDS: ARFORMOTEROL 15 MCG/2 ML NEBU IH SCH ×2 (07:43→19:28)
[2019-06-30] MEDS: BUDESONIDE 0.5 MG/2 ML NEBU IH SCH ×2 (07:44→19:28)
[2019-06-30] MEDS: INSULIN LISPRO 100 UNIT/ML SUB-Q SCH ×3 (08:48→22:20)
--- NOTE | 2019-06-30 09:18 | Progress Note ---
Assessment and Plan 1. Acute kidney injury: Likely vasomotor JODI superimposed on CKD. UA is bland. Renal US was negative for hydronephrosis. Patient was not on IV fluids. Renal function is improving. Monitor renal function. Avoid nephrotoxic agents. Meds dosage based on GFR. 2. FEN: Hyperkalemia, improved. Metabolic acidosis, improving. Monitor lytes. 3. Acute bronchitis. 4. A.fib: On Pradaxa. 5. DM-2. 6. Hypertension: Monitor BP. 7. Normochromic Anemia: POA. 8. Odynophagia. Examination: General appearance: well-developed, well-nourished, appears stated age, obese, other (no distress) HEENT: ATNC, GERALD, mucous membranes dry, hearing intact, vision intact Neck: neck supple, trachea midline Respiratory: Clear to Ascultation Heart: S1S2, no murmurs Gastrointestinal: nnormoactive bowel sounds, obese, not tender Integumentary: no rash, warm and dry Neurologic: no focal deficit, no asterixis Ext: no edema Psychiatric: cooperative Subjective Date of service: 06/30/19 Principal diagnosis: odynophagia Interval history: Patient was seen and examined at the bedside. Feeling better today. Objective - Vital Signs Vital signs: Vital Signs - 12hr 06/29/19 06/29/19 06/30/19 22:23 23:42 00:00 Temperature 98.3 F Pulse Rate 64 Pulse Rate [ Bilateral] Respiratory 20 18 Rate Respiratory Rate [Bilateral ] Blood Pressure 129/66 O2 Sat by Pulse 96 Oximetry 06/30/19 06/30/19 06/30/19 01:58 04:24 04:28 Temperature 97.6 F Pulse Rate 66 Pulse Rate [ 67 Bilateral] Respiratory 18 Rate Respiratory 16 Rate [Bilateral ] Blood Pressure 116/74 O2 Sat by Pulse 98 Oximetry 06/30/19 08:14 Temperature 98.0 F Pulse Rate 63 Pulse Rate [ Bilateral] Respiratory 20 Rate Respiratory Rate [Bilateral ] Blood Pressure 138/66 O2 Sat by Pulse 99 Oximetry - Lab 06/27/19 04:13 06/30/19 04:00 Most recent lab results Calcium 8.8 mg/dL (8.4-10.2) 06/30/19 04:00 Phosphorus 4.20 mg/dL (2.5-4.5) 06/29/19 06:58 Magnesium 2.20 mg/dL (1.7-2.3) 06/29/19 06:58 Urine Creatinine 40.1 mg/dL (0.1-20.0) H 06/28/19 Unknown Urine Sodium 67 mmol/L 06/28/19 Unknown Medications & Allergies - Medications Allergies/Adverse Reactions: Allergies gabapentin Allergy (Verified 08/17/16 17:53) Unknown Home Medications: Home Medications Medication Instructions Recorded Confirmed Last Taken Type Omeprazole 20 mg PO DAILY 01/10/16 06/26/19 06/02/16 History metFORMIN [Glucophage] 1,000 mg PO BID #60 tablet 01/11/16 06/26/19 06/25/19 Rx Aspirin [Aspirin BABY CHEW TAB] 81 mg PO QDAY #30 tab.chew 05/04/16 06/27/19 06/26/19 Rx 81 mg Dabigatran [Pradaxa] 150 mg PO BID #60 capsule 05/04/16 06/27/19 06/25/19 Rx 150 mg Colchicine [Colcrys] 0.6 mg PO BID #10 tablet 06/05/16 06/27/19 06/26/19 Rx 0.6mg Glimepiride [Amaryl] 10 mg PO QAM 08/18/16 06/27/19 06/25/19 History 10 mg Lisinopril [Zestril TAB] 20 mg PO BID 08/18/16 06/27/19 06/25/19 History 20 mg Amiodarone [Cordarone 200 MG TAB] 200 mg PO DAILY 30 Days tablet 08/20/16 06/27/19 06/25/19 Rx 200 mg Evolocumab [Repatha Syringe] 140 mg SUB-Q Q15D 06/26/19 06/27/19 Unknown History Metoprolol [Lopressor TAB] 25 mg PO BID 06/26/19 06/27/19 06/25/19 History 25 mg hydroCHLOROthiazide [HCTZ] 25 mg PO QDAY 06/26/19 06/27/19 06/25/19 History 25 mg Active Medications: Generic Name Dose Route Start Last Admin Trade Name Freq PRN Reason Stop Dose Admin Acetaminophen 650 mg 06/26/19 02:20 06/27/19 06:37 Tylenol PO 650 mg Q4H PRN Administration Pain MILD(1-3)/Fever >100.5/MCCALL Acetaminophen/Hydrocodone Bitart 1 each 06/26/19 15:00 06/29/19 22:23 [place] 5/325 PO 1 each Q4H PRN Administration Pain, Moderate (4-6) Albuterol 2.5 mg 06/26/19 16:37 Proventil IH Q4HRT PRN Shortness Of Breath Albuterol/Ipratropium 1 ampul 06/26/19 20:00 06/30/19 07:42 Duoneb *Not For Prn Use* IH 1 ampul Q6HRT IV[facility]TE Administration Amiodarone HCl 200 mg 06/26/19 10:00 06/29/19 12:16 Cordarone PO 200 mg DAILY IV[facility]TE Administration Arformoterol Tartrate 15 mcg 06/26/19 20:00 06/30/19 07:43 Brovana Nebu IH 15 mcg Q12HRT [facility] Administration Aspirin 81 mg 06/26/19 10:00 06/29/19 12:16 Baby Aspirin PO 81 mg QDAY [facility] Administration Bismuth Subsalicylate 262 mg 06/28/19 13:04 06/28/19 14:40 Pepto Bismol PO 262 mg Q6H PRN Administration Indigestion Budesonide 0.5 mg 06/26/19 20:00 06/30/19 07:44 Pulmicort IH 0.5 mg Q12HRT IVETTE Administration Dabigatran 150 mg 06/26/19 10:00 06/29/19 22:18 Pradaxa PO 150 mg BID IVETTE Administration Protocol Dextrose 50 ml 06/26/19 02:20 D50w (25gm) Syringe IV Q30MIN PRN Hypoglycemia Protocol Docusate Sodium 100 mg 06/26/19 10:00 06/29/19 22:18 Colace PO 100 mg BID IVETTE Administration Ferrous Sulfate 325 mg 06/28/19 14:00 06/29/19 22:17 Feosol PO 325 mg TID IVETTE Administration Furosemide 40 mg 06/30/19 08:30 Lasix IV 0600,1800 [facility] Guaifenesin 600 mg 06/26/19 10:00 06/29/19 22:18 Mucinex Er PO 600 mg BID IVETTE Administration Azithromycin 500 mg/ Sodium 250 mls @ 250 mls/hr 06/26/19 22:00 06/29/19 23:16 Chloride IV 07/01/19 21:59 250 mls/hr Q24H IVETTE Administration Protocol Sodium Chloride 1,000 mls @ 125 mls/hr 06/26/19 13:00 06/29/19 05:51 Nacl 0.9% 1000 Ml IV 125 mls/hr DIRECT [facility]TE Administration Insulin Human Lispro 0 unit 06/26/19 07:30 06/30/19 08:48 Humalog SUB-Q Not Given ACHS IV[facility] Protocol Metoprolol Tartrate 25 mg 06/26/19 10:00 06/29/19 22:18 Metoprolol PO 25 mg BID IV[facility]TE Administration Morphine Sulfate 2 mg 06/27/19 10:10 06/29/19 05:53 Morphine IV 2 mg Q4H PRN Administration Pain , Severe (7-10) Pantoprazole Sodium 40 mg 06/26/19 12:00 06/29/19 12:17 Protonix IV 40 mg QDAY [facility] Administration Polyethylene Glycol 17 gm 06/28/19 14:00 06/29/19 12:20 Miralax 3350 PO 17 gm QDAY [facility]TE Administration Prednisone 40 mg 06/28/19 10:00 06/29/19 12:17 Deltasone PO 40 mg QDAY [facility] Administration Simethicone 80 mg 06/26/19 11:03 06/26/19 22:30 Mylicon PO 80 mg Q6H PRN Administration Gas pain Sodium Chloride 10 ml 06/26/19 10:00 06/29/19 23:17 Sodium Chloride Flush Syringe 10 Ml IV 10 ml BID IVETTE Administration Sodium Chloride 10 ml 06/26/19 02:20 06/27/19 01:58 Sodium Chloride Flush Syringe 10 Ml IV 10 ml PRN PRN Administration LINE FLUSH
[2019-06-30] MEDS: FUROSEMIDE 40 MG/4 ML INJ IV SCH ×2 (11:04→18:34)
--- NOTE | 2019-06-30 11:05 | Consultation ---
History of Present Illness Consult date: 06/30/19 Requesting physician: POORNIMA ARORA Consult reason: known to you, pre op evaluation History of present illness: This is a 69-year-old female with a past medical history history of CAD s/p CABG in 2013, paroxysmal atrial fibrillation, anticoagulated with Pradaxa, sick sinus syndrome with dual-chamber permanent pacemaker, peripheral arterial disease with left carotid stenosis, hypertension, diabetes, obesity, gout, and hyperlipidemia. She is followed in our office by Dr. Womack. She presented on 06/25 with c/o cough, shortness of breath, and wheezing times one week. Cough is productive of yellow bloody sputum. She states she can only walk 2-3 steps before becoming really short of breath but she states this has been a chronic issue for several months. Patient also having intermittent chest wall pain worsened palpation and cough. She denies fever. She did not receive a flu shot this year. She saw her primary care doctor prior to arrival was advised that she come to the ER. She has been diagnosed with acute bronchitis. Following admission, she also c/o odynophagia and GI team has recommended endoscopy and thus cardiology has been consulted to provide cardiac risk stratification for endoscopy. LHC 04/2016 showed EF 65%, RCA is a dominant vessel and is occluded in the proximal part, Left main has severe distal stenosis, The left internal descending artery is occluded proximally, Severe ostial stenosis of the left circumflex artery and ramus branch noted, Saphenous vein graft to the mid obtuse marginal artery is patent, 60% moderate mid stenosis this vein graft is supposed be attached to the anterolateral branch or ramus branch in a Y fashion however this segment is missing and only vessel that is visualizes the mid obtuse marginal, Saphenous vein graft to the posterior descending artery is patent, left internal mammary graft to the left internal descending artery is widely patent. A FFR of the vein graft going to the obtuse marginal artery was obtained. It was not hemodynamically significant. Medical management was recommended. Echo done 08/2016 showed EF 55-60%, mild LVH, LA mildly dilated, mild MR, trace TR, RVSP 20-25mmHg. Past History Past Medical History: atrial fib (on Pradaxa), arthritis, CAD, diabetes, GERD, hypertension, hyperlipidemia, other (sick sinus syndrome, PAD, left carotid stenosis, obesity, gout) Past Surgical History: CABG (2013), Other (dual-chamber pacemaker) Social history: lives with family Family history: no significant family history Medications and Allergies Allergies Allergy/AdvReac Type Severity Reaction Status Date / Time gabapentin Allergy Unknown Verified 08/17/16 17:53 Home Medications Medication Instructions Recorded Confirmed Last Taken Type Omeprazole 20 mg PO DAILY 01/10/16 06/26/19 06/02/16 History metFORMIN [Glucophage] 1,000 mg PO BID #60 tablet 01/11/16 06/26/19 06/25/19 Rx Aspirin [Aspirin BABY CHEW TAB] 81 mg PO QDAY #30 tab.chew 05/04/16 06/27/19 06/26/19 Rx 81 mg Dabigatran [Pradaxa] 150 mg PO BID #60 capsule 05/04/16 06/27/19 06/25/19 Rx 150 mg Colchicine [Colcrys] 0.6 mg PO BID #10 tablet 06/05/16 06/27/19 06/26/19 Rx 0.6mg Glimepiride [Amaryl] 10 mg PO QAM 08/18/16 06/27/19 06/25/19 History 10 mg Lisinopril [Zestril TAB] 20 mg PO BID 08/18/16 06/27/19 06/25/19 History 20 mg Amiodarone [Cordarone 200 MG TAB] 200 mg PO DAILY 30 Days tablet 08/20/16 06/27/19 06/25/19 Rx 200 mg Evolocumab [Repatha Syringe] 140 mg SUB-Q Q15D 06/26/19 06/27/19 Unknown History Metoprolol [Lopressor TAB] 25 mg PO BID 06/26/19 06/27/19 06/25/19 History 25 mg hydroCHLOROthiazide [HCTZ] 25 mg PO QDAY 06/26/19 06/27/19 06/25/19 History 25 mg Active Meds: Active Medications Acetaminophen (Tylenol) 650 mg PO Q4H PRN PRN Reason: Pain MILD(1-3)/Fever >100.5/MCCALL Last Admin: 06/27/19 06:37 Dose: 650 mg Documented by: Acetaminophen/Hydrocodone Bitart ([place] 5/325) 1 each PO Q4H PRN PRN Reason: Pain, Moderate (4-6) Last Admin: 06/29/19 22:23 Dose: 1 each Documented by: Albuterol (Proventil) 2.5 mg IH Q4HRT PRN PRN Reason: Shortness Of Breath Albuterol/Ipratropium (Duoneb *Not For Prn Use*) 1 ampul IH Q6HRT [facility] Last Admin: 06/30/19 07:42 Dose: 1 ampul Documented by: Amiodarone HCl (Cordarone) 200 mg PO DAILY [facility] Last Admin: 06/29/19 12:16 Dose: 200 mg Documented by: Arformoterol Tartrate (Brovana Nebu) 15 mcg IH Q12HRT [facility] Last Admin: 06/30/19 07:43 Dose: 15 mcg Documented by: Aspirin (Baby Aspirin) 81 mg PO QDAY [facility] Last Admin: 06/29/19 12:16 Dose: 81 mg Documented by: Bismuth Subsalicylate (Pepto Bismol) 262 mg PO Q6H PRN PRN Reason: Indigestion Last Admin: 06/28/19 14:40 Dose: 262 mg Documented by: Budesonide (Pulmicort) 0.5 mg IH Q12HRT [facility] Last Admin: 06/30/19 07:44 Dose: 0.5 mg Documented by: Dabigatran (Pradaxa) 150 mg PO BID [facility]; Protocol Last Admin: 06/29/19 22:18 Dose: 150 mg Documented by: Dextrose (D50w (25gm) Syringe) 50 ml IV Q30MIN PRN; Protocol PRN Reason: Hypoglycemia Docusate Sodium (Colace) 100 mg PO BID [facility] Last Admin: 06/29/19 22:18 Dose: 100 mg Documented by: Ferrous Sulfate (Feosol) 325 mg PO TID [facility] Last Admin: 06/29/19 22:17 Dose: 325 mg Documented by: Furosemide (Lasix) 40 mg IV 0600,1800 [facility] Guaifenesin (Mucinex Er) 600 mg PO BID [facility] Last Admin: 06/29/19 22:18 Dose: 600 mg Documented by: Azithromycin 500 mg/ Sodium (Chloride) 250 mls @ 250 mls/hr IV Q24H [facility]; Protocol Stop: 07/01/19 21:59 Last Admin: 06/29/19 23:16 Dose: 250 mls/hr Documented by: Sodium Chloride (Nacl 0.9% 1000 Ml) 1,000 mls @ 125 mls/hr IV DIRECT [facility] Last Admin: 06/29/19 05:51 Dose: 125 mls/hr Documented by: Insulin Human Lispro (Humalog) 0 unit SUB-Q ACHS [facility]; Protocol Last Admin: 06/30/19 08:48 Dose: Not Given Documented by: Metoprolol Tartrate (Metoprolol) 25 mg PO BID [facility] Last Admin: 06/29/19 22:18 Dose: 25 mg Documented by: Morphine Sulfate (Morphine) 2 mg IV Q4H PRN PRN Reason: Pain , Severe (7-10) Last Admin: 06/29/19 05:53 Dose: 2 mg Documented by: Pantoprazole Sodium (Protonix) 40 mg IV QDAY [facility] Last Admin: 06/29/19 12:17 Dose: 40 mg Documented by: Polyethylene Glycol (Miralax 3350) 17 gm PO QDAY [facility] Last Admin: 06/29/19 12:20 Dose: 17 gm Documented by: Prednisone (Deltasone) 40 mg PO QDAY [facility] Last Admin: 06/29/19 12:17 Dose: 40 mg Documented by: Simethicone (Mylicon) 80 mg PO Q6H PRN PRN Reason: Gas pain Last Admin: 06/26/19 22:30 Dose: 80 mg Documented by: Sodium Chloride (Sodium Chloride Flush Syringe 10 Ml) 10 ml IV BID [facility] Last Admin: 06/29/19 23:17 Dose: 10 ml Documented by: Sodium Chloride (Sodium Chloride Flush Syringe 10 Ml) 10 ml IV PRN PRN PRN Reason: LINE FLUSH Last Admin: 06/27/19 01:58 Dose: 10 ml Documented by: Review of Systems Constitutional: no weight loss, no weight gain, no fever, no chills, no sweats Ears, nose, mouth and throat: no ear pain, no nose pain, no sinus pressure, no sinus pain Cardiovascular: chest pain, orthopnea (cannot lie flat d/t chronic back pain), edema (LLE), shortness of breath, dyspnea on exertion, leg edema (LLE), decreased exercise tolerance, no palpitations, no rapid/irregular heart beat, no syncope, no lightheadedness Respiratory: cough, cough with sputum, shortness of breath, dyspnea on exertion, congestion, wheezing, pain on inspiration Gastrointestinal: no abdominal pain, no nausea, no vomiting, no diarrhea, no constipation, no change in bowel habits Genitourinary Female: no pelvic pain, no flank pain, no dysuria, no urinary frequency, no urgency Musculoskeletal: low back pain (chronic ), no neck stiffness, no neck pain, no shooting arm pain, no arm numbness/tingling, no shooting leg pain Integumentary: no rash, no pruritis, no redness, no sores, no wounds Neurological: no head injury, no paralysis, no weakness, no parathesias, no numbness, no tingling, no seizures, no syncope Psychiatric: no anxiety Endocrine: no cold intolerance, no heat intolerance Hematologic/Lymphatic: no easy bruising, no easy bleeding Allergic/Immunologic: no urticaria, no wheezing Physical Examination Vital Signs Temp Pulse Resp BP Pulse Ox 98 F 64 16 134/57 96 06/25/19 18:41 06/25/19 18:41 06/25/19 18:41 06/25/19 18:41 06/25/19 18:41 General appearance: no acute distress HEENT: Positive: PERRL, Normocephaly, Mucus Membranes Moist Neck: Positive: neck supple, trachea midline Cardiac: Positive: Reg Rate and Rhythm, S1/S2 Lungs: Positive: Decreased Breath Sounds Neuro: Positive: Grossly Intact Abdomen: Negative: Tender Skin: Negative: Rash Musculoskeletal: No Pain Extremities: Present: edema (LLE 2+, RLE trace) Results 06/27/19 04:13 06/30/19 04:00 Comprehensive Metabolic Panel 06/30/19 Range/Units 04:00 Sodium 137 (137-145) mmol/L Potassium 4.7 (3.6-5.0) mmol/L Chloride 103.0 (98-107) mmol/L Carbon Dioxide 20 L (22-30) mmol/L BUN 32 H (7-17) mg/dL Creatinine 1.5 H (0.7-1.2) mg/dL Glucose 76 (65-100) mg/dL Calcium 8.8 (8.4-10.2) mg/dL - Imaging and Cardiology Echo: pending, report reviewed (08/2016 showed EF 55-60%, mild LVH, LA mildly dilated, mild MR, trace TR, RVSP 20-25mmHg. ) EKG: report reviewed, image reviewed EKG interpretations - Telemetry EKG Rhythm: Sinus Rhythm - EKG Sinus rhythms and dysrhythmias: sinus rhythm Assessment and Plan Pt c/o chest wall pain worsened palpation and cough. She also reports exertional chest pain over the past year for which she was scheduled for cardiac PET in our office but was unable to undergo this test because she was unable to lie flat in setting of chronic back pain. AMI currently r/o. DDimer WNL. Pt with c/o odynophagia and GI team has recommended endoscopy. She is currently at high cardiovascular risk for a relatively low risk procedure (endoscopy). There are no immediate cardiac contraindications to proceeding with endoscopy at this time. Agree with present cardiac management, including IV diuretics. Monitor renal indices. F/u echo. Consider ischemic evaluation prior to discharge if/when pt is able to lie flat. Further recs to follow per hospital course. The patient has been seen in conjunction with Dr. Jones who agrees with the assessment and plan of care. - Patient Problems (1) Acute bronchitis Current Visit: Yes Status: Acute (2) Wheezing Current Visit: Yes Status: Acute (3) Acute heart failure with preserved ejection fraction Current Visit: Yes Status: Acute (4) Chest pain Current Visit: Yes Status: Acute (5) CAD (coronary artery disease) Current Visit: Yes Status: Chronic (6) History of coronary artery bypass graft Current Visit: Yes Status: Chronic (7) Paroxysmal atrial fibrillation Current Visit: Yes Status: Chronic (8) SSS (sick sinus syndrome) Current Visit: Yes Status: Chronic (9) Cardiac pacemaker in situ Current Visit: Yes Status: Chronic (10) PAD (peripheral artery disease) Current Visit: Yes Status: Chronic (11) HTN (hypertension) Current Visit: Yes Status: Chronic (12) Diabetes Current Visit: Yes Status: Chronic (13) Morbid obesity Current Visit: Yes Status: Chronic (14) Hyperlipemia Current Visit: Yes Status: Acute (15) JODI (acute kidney injury) Current Visit: Yes Status: Acute
--- NOTE | 2019-06-30 11:27 | Gastroenterology Progress Note ---
Assessment and Plan 1.odynophagia 2.H/o GERD -symptoms with pills and food -etiology-possibly esophagitis vs other -esophagram unremarkable with no evidence of -continue PPI -cardiac consult pending for risk stratification, if clearance given will proceed with EGD -Keep NPO for now -continue supportive care -will follow Subjective Date of service: 06/30/19 Principal diagnosis: odynophagia Interval history: No acute distress. Reports SOB improving. Admits to continued pain with swallowing food yesterday. Denies abd pain or vomiting. Objective - Constitutional Vitals: Temp Pulse Resp BP Pulse Ox 98.0 F 63 20 138/66 99 06/30/19 08:14 06/30/19 08:14 06/30/19 08:14 06/30/19 08:14 06/30/19 08:14 General appearance: no acute distress, obese - EENT Eyes: PERRL, EOM intact ENT: hearing intact - Respiratory Respiratory effort: normal Respiratory: bilateral: diminished - Cardiovascular Rhythm: regular - Gastrointestinal General gastrointestinal: Present: soft, non-tender, non-distended, normal bowel sounds - Neurologic Neurological: alert and oriented x3 - Labs CBC & Chem 7: 06/27/19 04:13 06/30/19 04:00 Labs: Laboratory Results - last 24 hr 06/29/19 06/29/19 06/29/19 12:44 17:48 21:20 Sodium Potassium Chloride Carbon Dioxide Anion Gap BUN Creatinine Estimated GFR BUN/Creatinine Ratio Glucose POC Glucose 88 255 H 242 H Calcium 06/30/19 06/30/19 04:00 08:22 Sodium 137 Potassium 4.7 Chloride 103.0 Carbon Dioxide 20 L Anion Gap 19 BUN 32 H Creatinine 1.5 H Estimated GFR 34 BUN/Creatinine Ratio 21 Glucose 76 POC Glucose 72 Calcium 8.8
[2019-06-30] MEDS: PANTOPRAZOLE 40 MG INJ IV SCH (11:46)
[2019-06-30] MEDS: MORPHINE 2 MG/1 ML INJ IV PRN (11:46)
--- NOTE | 2019-06-30 14:22 | Consultation ---
History of Present Illness Consult date: 06/30/19 Reason for consult: dyspnea, cough History of present illness: PULMONARY AND CRITICAL CARE CONSULTATION. thank you for asking us to participate in the care of this patient. 69-year-old female with history of coronary artery disease status post CABG (2013), A. fib on Pradaxa, sick sinus syndrome with dual chamber pacemaker, PAD, left carotid stenosis, hypertension, diabetes, obesity, gout, HLD who presents to [facility] ED with complaints of SOB, productive cough and wheezing. Pt daughters are present at bedside and have assisted in providing history. Pt states that she is unable to walk more than 3 steps without becoming SOB. Additionally she complains of cough with thick yellow sputum production and wheezing for the past 3-4 days. Pt went to her PCP office today and was found to have initial saturation of 98% at rest and 91% with exertion. She was given albuterol nebulizer tx to help with wheezing. In addition to her respiratory complaints, pt complains of bilateral lower extremity edema. Her PCP (Dr. Marcia Vazquez) suggested that she go to the ED for further evaluation to rule out PE/DVT. Work up in the ED included D-Dimer, which was negative for PE no further testing is required at this time. Pt is anticoagulated on Pradaxa. Patient has no history of smoking, alcohol or drug abuse. Worked as a collection clerk. Patient allergic to Gabapentin. Patient is and has 3 children. Patient alert, awake. Patient morbidly Obese. Copmplaining symptoms of sleep apnea. Recommend sleep study as out patient. Patient presently receiving aerosol treatment. Patient is on room air. O2 saturation reported 100%. Chest xray reported cardiomegaly and pulmonary venous congestion. Patients venous Doppler studies of legs. No DVT. D dimer in normal range. Past History Past Medical History: atrial fib (on Pradaxa), arthritis, CAD, diabetes, GERD, hypertension, hyperlipidemia, other (sick sinus syndrome, PAD, left carotid stenosis, obesity, gout) Past Surgical History: CABG (2013), Other (dual-chamber pacemaker) Social history: lives with family Family history: no significant family history Medications and Allergies Allergies Allergy/AdvReac Type Severity Reaction Status Date / Time gabapentin Allergy Unknown Verified 08/17/16 17:53 Home Medications Medication Instructions Recorded Confirmed Last Taken Type Omeprazole 20 mg PO DAILY 01/10/16 06/26/19 06/02/16 History metFORMIN [Glucophage] 1,000 mg PO BID #60 tablet 01/11/16 06/26/19 06/25/19 Rx Aspirin [Aspirin BABY CHEW TAB] 81 mg PO QDAY #30 tab.chew 05/04/16 06/27/19 06/26/19 Rx 81 mg Dabigatran [Pradaxa] 150 mg PO BID #60 capsule 05/04/16 06/27/19 06/25/19 Rx 150 mg Colchicine [Colcrys] 0.6 mg PO BID #10 tablet 06/05/16 06/27/19 06/26/19 Rx 0.6mg Glimepiride [Amaryl] 10 mg PO QAM 08/18/16 06/27/19 06/25/19 History 10 mg Lisinopril [Zestril TAB] 20 mg PO BID 08/18/16 06/27/19 06/25/19 History 20 mg Amiodarone [Cordarone 200 MG TAB] 200 mg PO DAILY 30 Days tablet 08/20/16 06/27/19 06/25/19 Rx 200 mg Evolocumab [Repatha Syringe] 140 mg SUB-Q Q15D 06/26/19 06/27/19 Unknown History Metoprolol [Lopressor TAB] 25 mg PO BID 06/26/19 06/27/19 06/25/19 History 25 mg hydroCHLOROthiazide [HCTZ] 25 mg PO QDAY 06/26/19 06/27/19 06/25/19 History 25 mg Active Meds: Active Medications Acetaminophen (Tylenol) 650 mg PO Q4H PRN PRN Reason: Pain MILD(1-3)/Fever >100.5/MCCALL Last Admin: 06/27/19 06:37 Dose: 650 mg Documented by: Acetaminophen/Hydrocodone Bitart ([place] 5/325) 1 each PO Q4H PRN PRN Reason: Pain, Moderate (4-6) Last Admin: 06/29/19 22:23 Dose: 1 each Documented by: Albuterol (Proventil) 2.5 mg IH Q4HRT PRN PRN Reason: Shortness Of Breath Albuterol/Ipratropium (Duoneb *Not For Prn Use*) 1 ampul IH Q6HRT IVETTE Last Admin: 06/30/19 07:42 Dose: 1 ampul Documented by: Amiodarone HCl (Cordarone) 200 mg PO DAILY [facility] Last Admin: 06/29/19 12:16 Dose: 200 mg Documented by: Arformoterol Tartrate (Brovana Nebu) 15 mcg IH Q12HRT [facility] Last Admin: 06/30/19 07:43 Dose: 15 mcg Documented by: Aspirin (Baby Aspirin) 81 mg PO QDAY [facility] Last Admin: 06/29/19 12:16 Dose: 81 mg Documented by: Bismuth Subsalicylate (Pepto Bismol) 262 mg PO Q6H PRN PRN Reason: Indigestion Last Admin: 06/28/19 14:40 Dose: 262 mg Documented by: Budesonide (Pulmicort) 0.5 mg IH Q12HRT [facility] Last Admin: 06/30/19 07:44 Dose: 0.5 mg Documented by: Dabigatran (Pradaxa) 150 mg PO BID [facility]; Protocol Last Admin: 06/29/19 22:18 Dose: 150 mg Documented by: Dextrose (D50w (25gm) Syringe) 50 ml IV Q30MIN PRN; Protocol PRN Reason: Hypoglycemia Docusate Sodium (Colace) 100 mg PO BID [facility] Last Admin: 06/29/19 22:18 Dose: 100 mg Documented by: Ferrous Sulfate (Feosol) 325 mg PO TID [facility] Last Admin: 06/29/19 22:17 Dose: 325 mg Documented by: Furosemide (Lasix) 40 mg IV 0600,1800 [facility] Last Admin: 06/30/19 11:04 Dose: 40 mg Documented by: Guaifenesin (Mucinex Er) 600 mg PO BID [facility] Last Admin: 06/29/19 22:18 Dose: 600 mg Documented by: Azithromycin 500 mg/ Sodium (Chloride) 250 mls @ 250 mls/hr IV Q24H [facility]; Protocol Stop: 07/01/19 21:59 Last Admin: 06/29/19 23:16 Dose: 250 mls/hr Documented by: Sodium Chloride (Nacl 0.9% 1000 Ml) 1,000 mls @ 125 mls/hr IV DIRECT [facility] Last Admin: 06/29/19 05:51 Dose: 125 mls/hr Documented by: Insulin Human Lispro (Humalog) 0 unit SUB-Q ACHS [facility]; Protocol Last Admin: 06/30/19 08:48 Dose: Not Given Documented by: Metoprolol Tartrate (Metoprolol) 25 mg PO BID [facility] Last Admin: 06/29/19 22:18 Dose: 25 mg Documented by: Morphine Sulfate (Morphine) 2 mg IV Q4H PRN PRN Reason: Pain , Severe (7-10) Last Admin: 06/30/19 11:46 Dose: 2 mg Documented by: Pantoprazole Sodium (Protonix) 40 mg IV QDAY [facility] Last Admin: 06/30/19 11:46 Dose: 40 mg Documented by: Polyethylene Glycol (Miralax 3350) 17 gm PO QDAY [facility] Last Admin: 06/29/19 12:20 Dose: 17 gm Documented by: Prednisone (Deltasone) 40 mg PO QDAY [facility] Last Admin: 06/29/19 12:17 Dose: 40 mg Documented by: Simethicone (Mylicon) 80 mg PO Q6H PRN PRN Reason: Gas pain Last Admin: 06/26/19 22:30 Dose: 80 mg Documented by: Sodium Chloride (Sodium Chloride Flush Syringe 10 Ml) 10 ml IV BID [facility] Last Admin: 06/30/19 11:10 Dose: 10 ml Documented by: Sodium Chloride (Sodium Chloride Flush Syringe 10 Ml) 10 ml IV PRN PRN PRN Reason: LINE FLUSH Last Admin: 06/27/19 01:58 Dose: 10 ml Documented by: Review of Systems All systems: negative Physical Examination Vital signs: Vital Signs Temp Pulse Resp BP Pulse Ox 98 F 64 16 134/57 96 06/25/19 18:41 06/25/19 18:41 06/25/19 18:41 06/25/19 18:41 06/25/19 18:41 General appearance: no acute distress, alert Eyes: non-icteric ENT: oropharynx moist Neck: supple, no JVD Ascultation: Bilateral: diminished breath sounds, rales Cardiovascular: regular rate and rhythm Gastrointestinal: normoactive bowel sounds, soft, non-tender Integumentary: normal Extremities: no cyanosis, no edema Musculoskeletal: no deformities Gait: other (Can not evaluate at this time. Patient lying down in the bed.) normal mental status, non-focal exam, pupils equal and round, CN II-XII normal depressed Results - Laboratory Findings CBC and BMP: 06/27/19 04:13 06/30/19 04:00 PT/INR, D-dimer D-Dimer < 135.00 ng/mlDDU (0-234) 06/25/19 20:04 Abnormal lab findings: Abnormal Labs 06/25/19 06/25/19 06/26/19 20:04 20:04 05:46 RBC 3.21 L Hgb 7.9 L Hct 27.0 L MCH 25 L MCHC 29 L RDW 19.8 H Lymph # 1.0 L Seg Neutrophils % 78.8 H Seg Neuts % (Manual) Lymphocytes % (Manual) Seg Neutrophils # Man Lymphocytes # (Manual) Sodium Potassium Chloride Carbon Dioxide 17 L BUN 27 H Creatinine 1.5 H Glucose 178 H POC Glucose Hemoglobin A1c 6.1 H Magnesium Iron Folate PTH Intact Urine Creatinine 06/26/19 06/26/19 06/26/19 08:11 11:32 16:10 RBC Hgb Hct MCH MCHC RDW Lymph # Seg Neutrophils % Seg Neuts % (Manual) Lymphocytes % (Manual) Seg Neutrophils # Man Lymphocytes # (Manual) Sodium Potassium Chloride Carbon Dioxide BUN Creatinine Glucose POC Glucose 251 H 379 H 315 H Hemoglobin A1c Magnesium Iron Folate PTH Intact Urine Creatinine 06/26/19 06/27/19 06/27/19 21:49 04:13 04:13 RBC 3.24 L Hgb 7.8 L Hct 26.0 L MCH 24 L MCHC RDW 18.6 H Lymph # Seg Neutrophils % Seg Neuts % (Manual) 92.0 H Lymphocytes % (Manual) 6.0 L Seg Neutrophils # Man 7.8 H Lymphocytes # (Manual) 0.5 L Sodium Potassium 5.3 H Chloride Carbon Dioxide 18 L BUN 33 H Creatinine 1.7 H Glucose 117 H POC Glucose 330 H Hemoglobin A1c Magnesium 2.40 H Iron Folate PTH Intact Urine Creatinine 06/27/19 06/27/19 06/27/19 08:25 12:04 17:06 RBC Hgb Hct MCH MCHC RDW Lymph # Seg Neutrophils % Seg Neuts % (Manual) Lymphocytes % (Manual) Seg Neutrophils # Man Lymphocytes # (Manual) Sodium Potassium Chloride Carbon Dioxide BUN Creatinine Glucose POC Glucose 196 H 267 H 207 H Hemoglobin A1c Magnesium Iron Folate PTH Intact Urine Creatinine 06/27/19 06/28/19 06/28/19 21:20 08:23 10:50 RBC Hgb Hct MCH MCHC RDW Lymph # Seg Neutrophils % Seg Neuts % (Manual) Lymphocytes % (Manual) Seg Neutrophils # Man Lymphocytes # (Manual) Sodium 136 L Potassium Chloride Carbon Dioxide 15 L BUN 42 H Creatinine 1.7 H Glucose POC Glucose 202 H 49 L Hemoglobin A1c Magnesium Iron 15 L Folate PTH Intact Urine Creatinine 06/28/19 06/28/19 06/28/19 10:50 18:40 22:12 RBC Hgb Hct MCH MCHC RDW Lymph # Seg Neutrophils % Seg Neuts % (Manual) Lymphocytes % (Manual) Seg Neutrophils # Man Lymphocytes # (Manual) Sodium Potassium Chloride Carbon Dioxide BUN Creatinine Glucose POC Glucose 230 H 146 H Hemoglobin A1c Magnesium Iron Folate 5.43 L PTH Intact Urine Creatinine 06/28/19 06/29/19 06/29/19 Unknown 06:58 06:58 RBC Hgb Hct MCH MCHC RDW Lymph # Seg Neutrophils % Seg Neuts % (Manual) Lymphocytes % (Manual) Seg Neutrophils # Man Lymphocytes # (Manual) Sodium Potassium Chloride 108.1 H Carbon Dioxide 15 L BUN 37 H Creatinine 1.7 H Glucose POC Glucose Hemoglobin A1c Magnesium Iron Folate PTH Intact 181.5 H Urine Creatinine 40.1 H 06/29/19 06/29/19 06/30/19 17:48 21:20 04:00 RBC Hgb Hct MCH MCHC RDW Lymph # Seg Neutrophils % Seg Neuts % (Manual) Lymphocytes % (Manual) Seg Neutrophils # Man Lymphocytes # (Manual) Sodium Potassium Chloride Carbon Dioxide 20 L BUN 32 H Creatinine 1.5 H Glucose POC Glucose 255 H 242 H Hemoglobin A1c Magnesium Iron Folate PTH Intact Urine Creatinine - Diagnostic Findings Chest x-ray: report reviewed (Reported cardiomegaly and pulmonary venous congestion.), image reviewed Assessment and Plan 69-year-old female with history of coronary artery disease status post CABG (2013), A. fib on Pradaxa, sick sinus syndrome with dual chamber pacemaker, PAD, left carotid stenosis, hypertension, diabetes, obesity, gout, HLD who presents to [facility] ED with complaints of SOB, productive cough and wheezing. Pt daughters are present at bedside and have assisted in providing history. Pt states that she is unable to walk more than 3 steps without becoming SOB. Additionally she complains of cough with thick yellow sputum production and wheezing for the past 3-4 days. Pt went to her PCP office today and was found to have initial saturation of 98% at rest and 91% with exertion. She was given albuterol nebulizer tx to help with wheezing. In addition to her respiratory complaints, pt complains of bilateral lower extremity edema. Her PCP (Dr. Marcia Vazquez) suggested that she go to the ED for further evaluation to rule out PE/DVT. Work up in the ED included D-Dimer, which was negative for PE no further testing is required at this time. Pt is anticoagulated on Pradaxa. Patient has no history of smoking, alcohol or drug abuse. Worked as a collection clerk. Patient allergic to Gabapentin. Patient is and has 3 children. Patient alert, awake. Patient morbidly Obese. Copmplaining symptoms of sleep apnea. Recommend sleep study as out patient Patient presently receiving aerosol treatment. Patient is on room air. O2 saturation reported 100%. Chest xray reported cardiomegaly and pulmonary venous congestion. Patients venous Doppler studies of legs. No DVT. D dimer in normal range. - Patient Problems (1) Acute heart failure with preserved ejection fraction Current Visit: Yes Status: Acute Plan to address problem: Management as per cardiology. (2) Pulmonary venous congestion Current Visit: Yes Status: Acute Plan to address problem: Patient is on Lasix. Patient is on Pradaxa. (3) Acute bronchitis Current Visit: Yes Status: Acute Plan to address problem: Patient is on Zithromax. (4) Diabetes Current Visit: Yes Status: Chronic Plan to address problem: Management as per primary care. (5) HTN (hypertension) Current Visit: Yes Status: Chronic Plan to address problem: Management as per primary care. (6) Morbid obesity Current Visit: Yes Status: Chronic Plan to address problem: Recommend to loose weight. Recommend diet and exercise. Recommend sleep study. If patient shows any signs of sleep apnea during hospital stay, place her on CPAP or BPAP.
[2019-06-30] MEDS ORDERED: SODIUM CHLORIDE 0.9% 1000 ML 1,000 ML IV SCH (15:29)
[2019-06-30] MEDS ORDERED: WATER FOR IRRIG STERILE 250 ML BOTTLE IR ONE (15:49)
--- NOTE | 2019-06-30 15:51 | Anesthesia Consultation ---
Anesthesia Consult and Med Hx Date of service: 06/30/19 - Airway Anesthetic Teeth Evaluation: Poor ROM Head & Neck: Adequate Mental/Hyoid Distance: Adequate Mallampati Class: Class I Intubation Access Assessment: Good - Pulmonary Exam CTA: Yes - Cardiac Exam Cardiac Exam: RRR - Pre-Operative Health Status ASA Pre-Surgery Classification: ASA3 Proposed Anesthetic Plan: MAC - Pulmonary SOB: Yes COPD: Yes (Acute Bronchitis- resolving ) - Cardiovascular System Hx Hypertension: Yes (CHF) Hx Coronary Artery Disease: Yes Hx Angina: Yes Hx Cardia Arrhythmia: Yes (SICK SINUS SYNDROME, Afib ) Hx Pacemaker: Yes Hx Internal Defibrillator: Yes Hx Peripheral Vascular Disease: Yes - Gastrointestinal Hx Gastroesophageal Reflux Disease: Yes - Endocrine Hx Renal Disease: Yes (Acute Kidney insuff.) Hx Non-Insulin Dependent Diabetes: Yes - Hematic Hx Anemia: Yes - Other Systems Hx Obesity: Yes - Additional Comments Anesthesia Medical History Comments: Left Carotid Stenosis. Echo 08/2016 55-65%. neuropathy
--- NOTE | 2019-06-30 15:53 | Vascular Lab Report ---
DUPLEX DOPPLER LOWER EXTREMITY VEINS, BILATERAL INDICATION: LE edema. TECHNIQUE: Duplex doppler imaging was performed through the veins of both lower extremities using venous sara george and other maneuvers. COMPARISON: None available. FINDINGS: Right Common Femoral vein: Negative. Right Superficial Femoral vein: Negative. Right Popliteal vein: Negative. Right Calf veins: Negative. Left Common Femoral vein: Negative. Left Superficial Femoral vein: Negative. Left Popliteal vein: Negative. Left Calf veins: Negative. Additional findings: None. IMPRESSION: 1. No sonographic evidence for DVT in either lower extremity. Signer Name: Edmundo Leo MD Signed: 06/30/2019 3:49 PM Workstation Name: [id number]
--- NOTE | 2019-06-30 15:53 | Anesthesia Day of Surgery ---
Anesthesia Day of Surgery - Day of Surgery Patient Examined: Yes Patient H&P Reviewed: Yes Patient is NPO: Yes
[2019-06-30] MEDS ORDERED: PROPOFOL 200 MG/20 ML VIAL IV ONE ×2 (15:57→16:11)
[2019-06-30] MEDS ORDERED: MIDAZOLAM 2 MG/2 ML INJ ONE (16:08)
--- NOTE | 2019-06-30 16:22 | Post Operative Note ---
Pre-op diagnosis: odynophagia Post-op diagnosis: same Findings: EGD: hiatal hernia - white flaking material with ringed liked esophagus noted mid/distal 2/3 esophagus, bx's, suspect more likely EOE than Tyra - 12 mm ulcer white based antrum (bx's) - negative other Procedure: EGD w/ bx's Anesthesia: MAC Surgeon: OMAR PEARSON Estimated blood loss: none Pathology: list Specimen disposition: to lab Condition: stable Disposition: floor
[2019-06-30] MEDS: FERROUS SULFATE 325 MG TAB PO SCH ×3 (17:55→22:19)
[2019-06-30] MEDS: DOCUSATE SODIUM 100 MG CAP PO SCH ×2 (17:56→22:19)
[2019-06-30] MEDS: ASPIRIN 81 MG TAB CHEW PO SCH (17:56)
[2019-06-30] MEDS: AMIODARONE 200 MG TAB PO SCH (17:57)
[2019-06-30] MEDS: METOPROLOL TARTRATE 50 MG TAB PO SCH ×2 (17:57→22:20)
[2019-06-30] MEDS: predniSONE 20 MG TAB PO SCH (17:57)
[2019-06-30] MEDS: POLYETHYLENE GLYCOL 3350 17 GM POWDER PO SCH (17:57)
[2019-06-30] MEDS: guaiFENesin ER 600 MG TAB PO SCH ×2 (17:57→22:20)
[2019-06-30] MEDS: DABIGATRAN 150 MG CAP PO SCH ×2 (17:57→22:20)
[2019-06-30] MEDS: FLUCONAZOLE 100 MG TAB PO SCH (18:34)
--- NOTE | 2019-06-30 21:26 | Operative Report ---
PROCEDURE: EGD with cold biopsies and Sommer dilatation. INDICATIONS: 1. Odynophagia. 2. Dysphagia. MEDICATIONS: Propofol per [employer]. COMPLICATIONS: None. DESCRIPTION OF PROCEDURE: The patient brought to the procedure suite. The patient had the procedure discussed with her at length. All risks, benefits, and complications were discussed. After adequate sedation medication as above, endoscope was placed in the mouth and brought to level of the second portion of duodenum. Retroflexion view performed. The patient's vital signs remained stable throughout the procedure. FINDINGS: There was noted to be white flake like material noted along the esophageal body, especially the distal two-thirds of the esophagus. There was mild erythema noted with this area. It should also be noted there was a ring-like appearance to the distal esophagus area. These findings raised the possibility of eosinophilic esophagitis more likely than probable Tyra. Multiple biopsies were taken and sent to pathology. Irregular Z line from acid reflux noted 38 cm from the gums. Medium hiatal hernia at GE junction. The esophagus otherwise appeared to be normal. There was approximately 12 mm ulcer, mainly white based noted in the gastric antrum. No stigmata of bleeding was noted. Biopsies were taken and sent to pathology. Remaining stomach otherwise appeared to be normal. Duodenum appeared to be normal. Retroflexion view performed in the stomach showed no other pathology other than noted above. After this inspection using standard technique, Sommer dilatation using a 56-Ind[place]ian balloon was performed. Postprocedure, the patient was satisfactory. The patient tolerated the procedure well. No complications during the procedure. IMPRESSION: 1. Irregular material in esophagus more likely related to eosinophilic esophagitis and less likely Tyra, but still possible. Biopsy was taken and sent to pathology. It should be noted a ring-like appearance, somewhat to the esophagus. 2. Hiatal hernia. 3. Sommer dilatation as noted above. 4. Ulcer in the antrum with biopsies performed. 5. Otherwise, normal EGD. RECOMMENDATIONS: 1. Follow up biopsy results. 2. If H. pylori positive, we will treat. 3. PPI daily. 4. Diflucan 100 mg p.o. daily x 7 days. 5. Start soft diet and advance as tolerated. 6. If tolerating p.o., okay to discharge from GI standpoint. JOB# [id number] CAB/NTS
[2019-06-30] MEDS: AZITHROMYCIN 500 MG in SODIUM CHLORIDE 0.9% 250ML 250 ML IV SCH (22:18)
[2019-07-01] MEDS: IPRATROPIUM/ALBUTEROL SULFATE 3 ML AMPUL.NEB IH SCH ×4 (02:29→19:51)
[2019-07-01 05:00] LABS: Calcium 8.9 mg/dL (8.4-10.2)
[2019-07-01] MEDS: HYDROcodone/ACETAMINOPHEN 5-325 MG TAB PO PRN (05:14)
[2019-07-01] MEDS: FUROSEMIDE 40 MG/4 ML INJ IV SCH ×2 (06:37→18:28)
[2019-07-01] MEDS: ARFORMOTEROL 15 MCG/2 ML NEBU IH SCH ×2 (07:53→19:51)
[2019-07-01] MEDS: BUDESONIDE 0.5 MG/2 ML NEBU IH SCH (07:53)
--- NOTE | 2019-07-01 09:01 | Progress Note ---
Assessment and Plan 1. Acute kidney injury: Likely vasomotor JODI superimposed on CKD. UA is bland. Renal US was negative for hydronephrosis. Renal function is slightly better. Monitor renal function. Avoid nephrotoxic agents. Meds dosage based on GFR. 2. FEN: Hyperkalemia, improved. Metabolic acidosis, improving. Monitor lytes. 3. Acute bronchitis. 4. A.fib: On Pradaxa. 5. DM-2. 6. Hypertension: Monitor BP. 7. Normochromic Anemia: POA. 8. Odynophagia: EGD showed stomach ulcer and ?esophageal candidiasis. Examination: General appearance: well-developed, well-nourished, appears stated age, obese, no distress HEENT: ATNC, GERALD, hearing intact, vision intact Neck: neck supple, trachea midline Respiratory: Clear to Ascultation Heart: S1S2, no murmurs Gastrointestinal: nnormoactive bowel sounds, obese, not tender Integumentary: no rash, warm and dry Neurologic: no focal deficit, no asterixis Ext: no edema Psychiatric: cooperative Subjective Date of service: 07/01/19 Principal diagnosis: odynophagia Interval history: Patient was seen and examined at the bedside. Doing ok. Objective - Vital Signs Vital signs: Vital Signs - 12hr 07/01/19 07/01/19 07/01/19 00:03 05:14 05:16 Temperature 97.8 F 98.9 F Pulse Rate 63 68 Respiratory 20 20 20 Rate Blood Pressure 120/57 Blood Pressure 141/68 [Left] O2 Sat by Pulse 97 Oximetry 07/01/19 08:25 Temperature 98.0 F Pulse Rate 66 Respiratory 18 Rate Blood Pressure 118/59 Blood Pressure [Left] O2 Sat by Pulse 100 Oximetry - Lab 06/27/19 04:13 07/01/19 03:46 Most recent lab results Calcium 8.9 mg/dL (8.4-10.2) 07/01/19 03:46 Phosphorus 4.20 mg/dL (2.5-4.5) 06/29/19 06:58 Magnesium 2.20 mg/dL (1.7-2.3) 06/29/19 06:58 Urine Creatinine 40.1 mg/dL (0.1-20.0) H 06/28/19 Unknown Urine Sodium 67 mmol/L 06/28/19 Unknown Medications & Allergies - Medications Allergies/Adverse Reactions: Allergies gabapentin Allergy (Verified 08/17/16 17:53) Unknown Home Medications: Home Medications Medication Instructions Recorded Confirmed Last Taken Type Omeprazole 20 mg PO DAILY 01/10/16 06/26/19 06/02/16 History metFORMIN [Glucophage] 1,000 mg PO BID #60 tablet 01/11/16 06/26/19 06/25/19 Rx Aspirin [Aspirin BABY CHEW TAB] 81 mg PO QDAY #30 tab.chew 05/04/16 06/27/19 06/26/19 Rx 81 mg Dabigatran [Pradaxa] 150 mg PO BID #60 capsule 05/04/16 06/27/19 06/25/19 Rx 150 mg Colchicine [Colcrys] 0.6 mg PO BID #10 tablet 06/05/16 06/27/19 06/26/19 Rx 0.6mg Glimepiride [Amaryl] 10 mg PO QAM 08/18/16 06/27/19 06/25/19 History 10 mg Lisinopril [Zestril TAB] 20 mg PO BID 08/18/16 06/27/19 06/25/19 History 20 mg Amiodarone [Cordarone 200 MG TAB] 200 mg PO DAILY 30 Days tablet 08/20/16 06/27/19 06/25/19 Rx 200 mg Evolocumab [Repatha Syringe] 140 mg SUB-Q Q15D 06/26/19 06/27/19 Unknown History Metoprolol [Lopressor TAB] 25 mg PO BID 06/26/19 06/27/19 06/25/19 History 25 mg hydroCHLOROthiazide [HCTZ] 25 mg PO QDAY 06/26/19 06/27/19 06/25/19 History 25 mg Active Medications: Generic Name Dose Route Start Last Admin Trade Name Freq PRN Reason Stop Dose Admin Acetaminophen 650 mg 06/26/19 02:20 06/27/19 06:37 Tylenol PO 650 mg Q4H PRN Administration Pain MILD(1-3)/Fever >100.5/MCCALL Acetaminophen/Hydrocodone Bitart 1 each 06/26/19 15:00 07/01/19 05:14 [place] 5/325 PO 1 each Q4H PRN Administration Pain, Moderate (4-6) Albuterol 2.5 mg 06/26/19 16:37 Proventil IH Q4HRT PRN Shortness Of Breath Albuterol/Ipratropium 1 ampul 06/26/19 20:00 07/01/19 07:53 Duoneb *Not For Prn Use* IH 1 ampul Q6HRT IVETTE Administration Amiodarone HCl 200 mg 06/26/19 10:00 06/30/19 17:57 Cordarone PO Not Given DAILY IVETTE Arformoterol Tartrate 15 mcg 06/26/19 20:00 07/01/19 07:53 Brovana Nebu IH 15 mcg Q12HRT IVETTE Administration Aspirin 81 mg 06/26/19 10:00 06/30/19 17:56 Baby Aspirin PO Not Given QDAY IVETTE Bismuth Subsalicylate 262 mg 06/28/19 13:04 06/28/19 14:40 Pepto Bismol PO 262 mg Q6H PRN Administration Indigestion Budesonide 0.5 mg 06/26/19 20:00 07/01/19 07:53 Pulmicort IH 0.5 mg Q12HRT IVETTE Administration Dabigatran 150 mg 06/26/19 10:00 06/30/19 22:20 Pradaxa PO 150 mg BID IVETTE Administration Protocol Dextrose 50 ml 06/26/19 02:20 D50w (25gm) Syringe IV Q30MIN PRN Hypoglycemia Protocol Docusate Sodium 100 mg 06/26/19 10:00 06/30/19 22:19 Colace PO 100 mg BID IVETTE Administration Ferrous Sulfate 325 mg 06/28/19 14:00 06/30/19 22:19 Feosol PO 325 mg TID IVETTE Administration Fluconazole 100 mg 06/30/19 17:00 06/30/19 18:34 Diflucan PO 07/06/19 10:01 100 mg QDAY IVETTE Administration Furosemide 40 mg 06/30/19 08:30 07/01/19 06:37 Lasix IV 40 mg 0600,1800 IVETTE Administration Guaifenesin 600 mg 06/26/19 10:00 06/30/19 22:20 Mucinex Er PO 600 mg BID IVETTE Administration Azithromycin 500 mg/ Sodium 250 mls @ 250 mls/hr 06/26/19 22:00 06/30/19 22:18 Chloride IV 07/01/19 21:59 250 mls/hr Q24H IVETTE Administration Protocol Sodium Chloride 1,000 mls @ 125 mls/hr 06/26/19 13:00 06/29/19 05:51 Nacl 0.9% 1000 Ml IV 125 mls/hr DIRECT IVETTE Administration Sodium Chloride 1,000 mls @ 50 mls/hr 06/30/19 15:29 06/30/19 15:45 Nacl 0.9% 1000 Ml IV 50 mls/hr DIRECT IVETTE Administration Insulin Human Lispro 0 unit 06/26/19 07:30 06/30/19 22:20 Humalog SUB-Q 1 unit ACHS IVETTE Administration Protocol Metoprolol Tartrate 25 mg 06/26/19 10:00 06/30/19 22:20 Metoprolol PO 25 mg BID IVETTE Administration Morphine Sulfate 2 mg 06/27/19 10:10 06/30/19 11:46 Morphine IV 2 mg Q4H PRN Administration Pain , Severe (7-10) Pantoprazole Sodium 40 mg 07/01/19 10:00 Protonix PO DAILY IVETTE Polyethylene Glycol 17 gm 06/28/19 14:00 06/30/19 17:57 Miralax 3350 PO Not Given QDAY IVETTE Prednisone 40 mg 06/28/19 10:00 06/30/19 17:57 Deltasone PO Not Given QDAY IVETTE Simethicone 80 mg 06/26/19 11:03 06/26/19 22:30 Mylicon PO 80 mg Q6H PRN Administration Gas pain Sodium Chloride 10 ml 06/26/19 10:00 06/30/19 22:26 Sodium Chloride Flush Syringe 10 Ml IV 10 ml BID IVETTE Administration Sodium Chloride 10 ml 06/26/19 02:20 06/27/19 01:58 Sodium Chloride Flush Syringe 10 Ml IV 10 ml PRN PRN Administration LINE FLUSH
--- NOTE | 2019-07-01 09:35 | Progress Note ---
Assessment and Plan Patient is alert and awake. Resting on room air. No acute respiratory distress. O2 saturation is 95%. ABG is pending - Patient Problems (1) Acute heart failure with preserved ejection fraction Current Visit: Yes Status: Acute Plan to address problem: Management as per cardiology. (2) Pulmonary venous congestion Current Visit: Yes Status: Acute Plan to address problem: Patient is on Lasix. Patient is on Pradaxa. (3) Acute bronchitis Current Visit: Yes Status: Acute Plan to address problem: Patient is on Zithromax. (4) Diabetes Current Visit: Yes Status: Chronic Plan to address problem: Management as per primary care. (5) HTN (hypertension) Current Visit: Yes Status: Chronic Plan to address problem: Management as per primary care. (6) Morbid obesity Current Visit: Yes Status: Chronic Plan to address problem: Recommend to loose weight. Recommend diet and exercise. Recommend sleep study. If patient shows any signs of sleep apnea during hospital stay, place her on CPAP or BPAP. Subjective Date of service: 07/01/19 Principal diagnosis: odynophagia Interval history: Patient is alert and awake. Resting on room air. No acute respiratory distress. O2 saturation is 95%. ABG is pending Objective Vital Signs - 12hr 07/01/19 07/01/19 07/01/19 00:03 05:14 05:16 Temperature 97.8 F 98.9 F Pulse Rate 63 68 Respiratory 20 20 20 Rate Blood Pressure 120/57 Blood Pressure 141/68 [Left] O2 Sat by Pulse 97 Oximetry 07/01/19 08:25 Temperature 98.0 F Pulse Rate 66 Respiratory 18 Rate Blood Pressure 118/59 Blood Pressure [Left] O2 Sat by Pulse 100 Oximetry Constitutional: no acute distress, alert Eyes: non-icteric ENT: oropharynx moist Neck: supple, no JVD Ascultation: Bilateral: diminished breath sounds, rales Cardiovascular: regular rate and rhythm Gastrointestinal: normoactive bowel sounds, soft, non-tender Integumentary: normal Extremities: no cyanosis, no edema Neurologic: normal mental status, non-focal exam, pupils equal and round, CN II- XII normal Psychiatric: depressed CBC and BMP: 06/27/19 04:13 07/01/19 03:46 ABG, PT/INR, D-dimer: PT/INR, D-dimer D-Dimer < 135.00 ng/mlDDU (0-234) 06/25/19 20:04 Abnormal lab findings: Abnormal Labs 06/25/19 06/25/19 06/26/19 20:04 20:04 05:46 RBC 3.21 L Hgb 7.9 L Hct 27.0 L MCH 25 L MCHC 29 L RDW 19.8 H Lymph # 1.0 L Seg Neutrophils % 78.8 H Seg Neuts % (Manual) Lymphocytes % (Manual) Seg Neutrophils # Man Lymphocytes # (Manual) Sodium Potassium Chloride Carbon Dioxide 17 L BUN 27 H Creatinine 1.5 H Glucose 178 H POC Glucose Hemoglobin A1c 6.1 H Magnesium Iron Folate PTH Intact Urine Creatinine 06/26/19 06/26/19 06/26/19 08:11 11:32 16:10 RBC Hgb Hct MCH MCHC RDW Lymph # Seg Neutrophils % Seg Neuts % (Manual) Lymphocytes % (Manual) Seg Neutrophils # Man Lymphocytes # (Manual) Sodium Potassium Chloride Carbon Dioxide BUN Creatinine Glucose POC Glucose 251 H 379 H 315 H Hemoglobin A1c Magnesium Iron Folate PTH Intact Urine Creatinine 06/26/19 06/27/19 06/27/19 21:49 04:13 04:13 RBC 3.24 L Hgb 7.8 L Hct 26.0 L MCH 24 L MCHC RDW 18.6 H Lymph # Seg Neutrophils % Seg Neuts % (Manual) 92.0 H Lymphocytes % (Manual) 6.0 L Seg Neutrophils # Man 7.8 H Lymphocytes # (Manual) 0.5 L Sodium Potassium 5.3 H Chloride Carbon Dioxide 18 L BUN 33 H Creatinine 1.7 H Glucose 117 H POC Glucose 330 H Hemoglobin A1c Magnesium 2.40 H Iron Folate PTH Intact Urine Creatinine 06/27/19 06/27/19 06/27/19 08:25 12:04 17:06 RBC Hgb Hct MCH MCHC RDW Lymph # Seg Neutrophils % Seg Neuts % (Manual) Lymphocytes % (Manual) Seg Neutrophils # Man Lymphocytes # (Manual) Sodium Potassium Chloride Carbon Dioxide BUN Creatinine Glucose POC Glucose 196 H 267 H 207 H Hemoglobin A1c Magnesium Iron Folate PTH Intact Urine Creatinine 06/27/19 06/28/19 06/28/19 21:20 08:23 10:50 RBC Hgb Hct MCH MCHC RDW Lymph # Seg Neutrophils % Seg Neuts % (Manual) Lymphocytes % (Manual) Seg Neutrophils # Man Lymphocytes # (Manual) Sodium 136 L Potassium Chloride Carbon Dioxide 15 L BUN 42 H Creatinine 1.7 H Glucose POC Glucose 202 H 49 L Hemoglobin A1c Magnesium Iron 15 L Folate PTH Intact Urine Creatinine 06/28/19 06/28/19 06/28/19 10:50 18:40 22:12 RBC Hgb Hct MCH MCHC RDW Lymph # Seg Neutrophils % Seg Neuts % (Manual) Lymphocytes % (Manual) Seg Neutrophils # Man Lymphocytes # (Manual) Sodium Potassium Chloride Carbon Dioxide BUN Creatinine Glucose POC Glucose 230 H 146 H Hemoglobin A1c Magnesium Iron Folate 5.43 L PTH Intact Urine Creatinine 06/28/19 06/29/19 06/29/19 Unknown 06:58 06:58 RBC Hgb Hct MCH MCHC RDW Lymph # Seg Neutrophils % Seg Neuts % (Manual) Lymphocytes % (Manual) Seg Neutrophils # Man Lymphocytes # (Manual) Sodium Potassium Chloride 108.1 H Carbon Dioxide 15 L BUN 37 H Creatinine 1.7 H Glucose POC Glucose Hemoglobin A1c Magnesium Iron Folate PTH Intact 181.5 H Urine Creatinine 40.1 H 06/29/19 06/29/19 06/30/19 17:48 21:20 04:00 RBC Hgb Hct MCH MCHC RDW Lymph # Seg Neutrophils % Seg Neuts % (Manual) Lymphocytes % (Manual) Seg Neutrophils # Man Lymphocytes # (Manual) Sodium Potassium Chloride Carbon Dioxide 20 L BUN 32 H Creatinine 1.5 H Glucose POC Glucose 255 H 242 H Hemoglobin A1c Magnesium Iron Folate PTH Intact Urine Creatinine 06/30/19 07/01/19 21:06 03:46 RBC Hgb Hct MCH MCHC RDW Lymph # Seg Neutrophils % Seg Neuts % (Manual) Lymphocytes % (Manual) Seg Neutrophils # Man Lymphocytes # (Manual) Sodium Potassium Chloride Carbon Dioxide 21 L BUN 27 H Creatinine 1.6 H Glucose POC Glucose 177 H Hemoglobin A1c Magnesium Iron Folate PTH Intact Urine Creatinine
--- NOTE | 2019-07-01 10:08 | Gastroenterology Progress Note ---
Assessment and Plan 1.odynophagia 2.H/o GERD -esophagram unremarkable -s/p EGD yesterday that showed hiatal hernia, white flaking material with ringed liked esophagus noted mid/distal 2/3 esophagus (suspect likely EOE than delia; bx obtained; scott 56F dilation performed), and 12mm ulcer white based antrum (bx obtained) -bx results pending-f/u in clinic -clinically, patient reports pain with swallowing is improving. Tolerating small amount of PO. No abd pain or vomiting. -continue PPI and diflucan 100mg PO daily x 7 days -advance diet as tolerated -continue supportive care -patient okay to be d/c per GI standpoint on current medications with f/u in clinic in ~2-3 weeks -will sign off, please call if needed Subjective Date of service: 07/01/19 Principal diagnosis: odynophagia Interval history: Patient sitting up in bed this am w/o acute distress. Tolerating small amounts of PO. Pain with swallowing remains present but improved per pt. Denies abd pain or vomiting. Objective - Constitutional Vitals: Temp Pulse Resp BP Pulse Ox 98.0 F 66 18 118/59 100 07/01/19 08:25 07/01/19 08:25 07/01/19 08:25 07/01/19 08:25 07/01/19 08:25 General appearance: no acute distress, obese - Respiratory Respiratory: bilateral: diminished - Cardiovascular Rhythm: regular - Gastrointestinal General gastrointestinal: Present: soft, non-tender, non-distended, normal bowel sounds - Integumentary Integumentary: Present: warm, dry - Neurologic Neurological: alert and oriented x3 - Labs CBC & Chem 7: 06/27/19 04:13 07/01/19 03:46 Labs: Laboratory Results - last 24 hr 06/30/19 06/30/19 07/01/19 11:35 21:06 03:46 Sodium 142 Potassium 4.2 Chloride 101.6 Carbon Dioxide 21 L Anion Gap 24 BUN 27 H Creatinine 1.6 H Estimated GFR 32 BUN/Creatinine Ratio 17 Glucose 86 POC Glucose 79 177 H Calcium 8.9 07/01/19 08:17 Sodium Potassium Chloride Carbon Dioxide Anion Gap BUN Creatinine Estimated GFR BUN/Creatinine Ratio Glucose POC Glucose 92 Calcium
--- NOTE | 2019-07-01 10:57 | Progress Note ---
Assessment and Plan Pt c/o chest wall pain worsened palpation and cough. She also reports exertional chest pain over the past year for which she was scheduled for cardiac PET in our office but was unable to undergo this test because she was unable to lie flat in setting of chronic back pain. AMI currently r/o. DDimer WNL. Pt with c/o odynophagia underwent EGD yesterday that showed hiatal hernia, white flaking material with ringed liked esophagus noted mid/distal 2/3 esophagus (suspect likely EOE than delia; bx obtained; scott 56F dilation performed), and 12mm ulcer white based antrum (bx obtained). Agree with present cardiac management, including IV diuretics. Monitor renal indices. Await echo. Consider ischemic evaluation prior to discharge if/when pt is able to lie flat, although pt reports she may never be able to lay flat. The patient has been seen in conjunction with Dr. Jones who agrees with the assessment and plan of care. - Patient Problems (1) Acute bronchitis Current Visit: Yes Status: Acute (2) Wheezing Current Visit: Yes Status: Acute (3) Acute heart failure with preserved ejection fraction Current Visit: Yes Status: Acute (4) Chest pain Current Visit: Yes Status: Acute (5) CAD (coronary artery disease) Current Visit: Yes Status: Chronic (6) History of coronary artery bypass graft Current Visit: Yes Status: Chronic (7) Paroxysmal atrial fibrillation Current Visit: Yes Status: Chronic (8) SSS (sick sinus syndrome) Current Visit: Yes Status: Chronic (9) Cardiac pacemaker in situ Current Visit: Yes Status: Chronic (10) PAD (peripheral artery disease) Current Visit: Yes Status: Chronic (11) HTN (hypertension) Current Visit: Yes Status: Chronic (12) Diabetes Current Visit: Yes Status: Chronic (13) Morbid obesity Current Visit: Yes Status: Chronic (14) Hyperlipemia Current Visit: Yes Status: Acute (15) JODI (acute kidney injury) Current Visit: Yes Status: Acute Subjective Date of service: 07/01/19 Principal diagnosis: odynophagia Interval history: pt resting in bed, still with c/o sore throat and difficulty swallowing. s/p EGD yesterday. no current chest pain. leg edema improving. paced on tele. Objective Last Vital Signs Temp 98.0 F 07/01/19 08:25 Pulse 66 07/01/19 08:25 Resp 18 07/01/19 08:25 BP 118/59 07/01/19 08:25 Pulse Ox 100 07/01/19 08:25 - Physical Examination General: No Apparent Distress HEENT: Positive: PERRL, Normocephaly, Mucus Membranes Moist Neck: Positive: neck supple, trachea midline Cardiac: Positive: Reg Rate and Rhythm, S1/S2 Lungs: Positive: Decreased Breath Sounds Neuro: Positive: Grossly Intact Abdomen: Negative: Tender Skin: Negative: Rash Musculoskeletal: No Pain Extremities: Present: edema (LLE 2+, RLE trace) - Labs and Meds Comprehensive Metabolic Panel 07/01/19 Range/Units 03:46 Sodium 142 (137-145) mmol/L Potassium 4.2 (3.6-5.0) mmol/L Chloride 101.6 (98-107) mmol/L Carbon Dioxide 21 L (22-30) mmol/L BUN 27 H (7-17) mg/dL Creatinine 1.6 H (0.7-1.2) mg/dL Glucose 86 (65-100) mg/dL Calcium 8.9 (8.4-10.2) mg/dL - Imaging and Cardiology EKG: report reviewed, image reviewed Echo: pending, report reviewed (08/2016 showed EF 55-60%, mild LVH, LA mildly dilated, mild MR, trace TR, RVSP 20-25mmHg. ) - EKG Sinus rhythms and dysrhythmias: sinus rhythm
[2019-07-01] MEDS: AMIODARONE 200 MG TAB PO SCH (11:00)
[2019-07-01] MEDS: guaiFENesin ER 600 MG TAB PO SCH ×2 (11:01→22:55)
[2019-07-01] MEDS: POLYETHYLENE GLYCOL 3350 17 GM POWDER PO SCH (11:01)
[2019-07-01] MEDS: DOCUSATE SODIUM 100 MG CAP PO SCH ×2 (11:01→22:55)
[2019-07-01] MEDS: FERROUS SULFATE 325 MG TAB PO SCH ×3 (11:01→21:30)
[2019-07-01] MEDS: predniSONE 20 MG TAB PO SCH (11:01)
[2019-07-01] MEDS: PANTOPRAZOLE 40 MG TAB PO SCH (11:01)
[2019-07-01] MEDS: FLUCONAZOLE 100 MG TAB PO SCH (11:01)
[2019-07-01] MEDS: DABIGATRAN 150 MG CAP PO SCH ×2 (11:02→22:55)
[2019-07-01] MEDS: METOPROLOL TARTRATE 50 MG TAB PO SCH ×2 (11:02→22:55)
[2019-07-01] MEDS: ASPIRIN 81 MG TAB CHEW PO SCH (11:02)
[2019-07-01] MEDS: INSULIN LISPRO 100 UNIT/ML SUB-Q SCH ×2 (13:44→13:45)
--- NOTE | 2019-07-01 13:59 | Progress Note ---
Assessment and Plan Assessment and plan: 69-year-old woman who presented to the hospital with pain shortness of breath, wheezing and odynophagia Past medical history; CAD status post CABG, PAF, sick sinus syndrome status post pacemaker, PAD with left carotid stenosis, hypertension, diabetes, obesity, gout, hyperlipidemia. * highly doubt bronchitis, has received steroids and nebs, * is currently fluid overloaded, cont on IV lasix * Creatinine has been stable, currently 1.7. Last documented creatinine in our system was from 2017. It is likely that this is the patient's baseline creatinine and that she is actually having chronic kidney disease and not acute kidney disease. Nephrology consult appreciated, hyperkalemia has resolved Renal ultrasound negative for hydronephrosis. - * GI consult appreciated, continue Protonix, white flaking material with ringed liked esophagus noted mid/distal 2/3 esophagus, bx's, suspect more likely EOE than Delia, on diflucan * Rate controlled for A. fib and on Pradaxa for stroke prophylaxis Patient is to continue insulins for type 2 diabetes. Preventative health counseling performed for 17 minutes Patient needs outpatient weight loss clinic Diagnosis Acute bronchitis ruled out Acute on chronic diastolic CHF Coronary artery disease Odynophagia A. fib with hypercoagulable state CKD Esophagitis, EOE vs delia infection History Interval history: Review of systems Constitutional: No fevers, no malaise, no joint pains CVS: c/o orthopnea and pedal edema, no chest pain GI: No abdominal pain, no diarrhea, no vomiting, no constipation, continues to complain of odynophagia Respiratory: no cough or wheeze Hospitalist Physical - Physical exam Narrative exam: General.: Mild distress HEENT: Moist mucous membranes, extraocular muscles intact, no lymphadenopathy Neck: supple Cardiac: S1-S2 heard Lungs: rales at bases Abdomen: soft , nontender, nondistended, bowel sounds positive Extremities: BL edema Skin: no rash or lesions Neurologic: no gross focal deficits Psych: calm, and cooperative - Constitutional Vitals: Temp Pulse Resp BP Pulse Ox 98.0 F 65 18 126/61 95 07/01/19 11:56 07/01/19 11:56 07/01/19 11:56 07/01/19 11:56 07/01/19 11:56 General appearance: Present: no acute distress, obese Results - Labs CBC & Chem 7: 06/27/19 04:13 07/01/19 03:46 Labs: Laboratory Last Values WBC 8.5 K/mm3 (4.5-11.0) 06/27/19 04:13 RBC 3.24 M/mm3 (3.65-5.03) L 06/27/19 04:13 Hgb 7.8 gm/dl (10.1-14.3) L 06/27/19 04:13 Hct 26.0 % (30.3-42.9) L 06/27/19 04:13 MCV 80 fl (79-97) 06/27/19 04:13 MCH 24 pg (28-32) L 06/27/19 04:13 MCHC 30 % (30-34) 06/27/19 04:13 RDW 18.6 % (13.2-15.2) H 06/27/19 04:13 Plt Count 249 K/mm3 (140-440) 06/27/19 04:13 Lymph % (Auto) Microbiology Teacher 06/27/19 04:13 [place] % (Auto) Microbiology Teacher 06/27/19 04:13 Eos % (Auto) Microbiology Teacher 06/27/19 04:13 Baso % (Auto) Microbiology Teacher 06/27/19 04:13 Lymph # Microbiology Teacher 06/27/19 04:13 [place] # Microbiology Teacher 06/27/19 04:13 Eos # Microbiology Teacher 06/27/19 04:13 Baso # Microbiology Teacher 06/27/19 04:13 Add Manual Diff Complete 06/27/19 04:13 Total Counted 100 06/27/19 04:13 Seg Neutrophils % Microbiology Teacher 06/27/19 04:13 Seg Neuts % (Manual) 92.0 % (40.0-70.0) H 06/27/19 04:13 Band Neutrophils % 0 % 06/27/19 04:13 Lymphocytes % (Manual) 6.0 % (13.4-35.0) L 06/27/19 04:13 Reactive Lymphs % (Man) 0 % 06/27/19 04:13 Monocytes % (Manual) 2.0 % (0.0-7.3) 06/27/19 04:13 Eosinophils % (Manual) 0 % (0.0-4.3) 06/27/19 04:13 Basophils % (Manual) 0 % (0.0-1.8) 06/27/19 04:13 Metamyelocytes % 0 % 06/27/19 04:13 Myelocytes % 0 % 06/27/19 04:13 Promyelocytes % 0 % 06/27/19 04:13 Blast Cells % 0 % 06/27/19 04:13 Nucleated RBC % Not Reportable 06/27/19 04:13 Seg Neutrophils # Microbiology Teacher 06/27/19 04:13 Seg Neutrophils # Man 7.8 K/mm3 (1.8-7.7) H 06/27/19 04:13 Band Neutrophils # 0.0 K/mm3 06/27/19 04:13 Lymphocytes # (Manual) 0.5 K/mm3 (1.2-5.4) L 06/27/19 04:13 Abs React Lymphs (Man) 0.0 K/mm3 06/27/19 04:13 Monocytes # (Manual) 0.2 K/mm3 (0.0-0.8) 06/27/19 04:13 Eosinophils # (Manual) 0.0 K/mm3 (0.0-0.4) 06/27/19 04:13 Basophils # (Manual) 0.0 K/mm3 (0.0-0.1) 06/27/19 04:13 Metamyelocytes # 0.0 K/mm3 06/27/19 04:13 Myelocytes # 0.0 K/mm3 06/27/19 04:13 Promyelocytes # 0.0 K/mm3 06/27/19 04:13 Blast Cells # 0.0 K/mm3 06/27/19 04:13 WBC Morphology Not Reportable 06/27/19 04:13 Hypersegmented Neuts Not Reportable 06/27/19 04:13 Hyposegmented Neuts Not Reportable 06/27/19 04:13 Hypogranular Neuts Not Reportable 06/27/19 04:13 Smudge Cells Not Reportable 06/27/19 04:13 Toxic Granulation Not Reportable 06/27/19 04:13 Toxic Vacuolation Not Reportable 06/27/19 04:13 Dohle Bodies Not Reportable 06/27/19 04:13 Pelger-Huet Anomaly Not Reportable 06/27/19 04:13 Sami Rods Not Reportable 06/27/19 04:13 Platelet Estimate Consistent w auto 06/27/19 04:13 Clumped Platelets Not Reportable 06/27/19 04:13 Plt Clumps, EDTA Not Reportable 06/27/19 04:13 Large Platelets Not Reportable 06/27/19 04:13 Giant Platelets Not Reportable 06/27/19 04:13 Platelet Satelliting Not Reportable 06/27/19 04:13 Plt Morphology Comment Not Reportable 06/27/19 04:13 RBC Morphology Not Reportable 06/27/19 04:13 Dimorphic RBCs Not Reportable 06/27/19 04:13 Polychromasia Rare 06/27/19 04:13 Hypochromasia Few 06/27/19 04:13 Poikilocytosis Not Reportable 06/27/19 04:13 Anisocytosis Not Reportable 06/27/19 04:13 Microcytosis Not Reportable 06/27/19 04:13 Macrocytosis Not Reportable 06/27/19 04:13 Spherocytes Not Reportable 06/27/19 04:13 Pappenheimer Bodies Not Reportable 06/27/19 04:13 Sickle Cells Not Reportable 06/27/19 04:13 Target Cells Not Reportable 06/27/19 04:13 Tear Drop Cells Rare 06/27/19 04:13 Ovalocytes Not Reportable 06/27/19 04:13 Helmet Cells Not Reportable 06/27/19 04:13 Wu-[place] Bodies Not Reportable 06/27/19 04:13 [place] Rings Not Reportable 06/27/19 04:13 [place] Cells Not Reportable 06/27/19 04:13 Bite Cells Not Reportable 06/27/19 04:13 Crenated Cell Not Reportable 06/27/19 04:13 Elliptocytes Rare 06/27/19 04:13 Acanthocytes (Spur) Not Reportable 06/27/19 04:13 Rouleaux Not Reportable 06/27/19 04:13 Hemoglobin C Crystals Not Reportable 06/27/19 04:13 Schistocytes Not Reportable 06/27/19 04:13 Malaria parasites Not Reportable 06/27/19 04:13 [place] Bodies Not Reportable 06/27/19 04:13 Hem Pathologist Commnt No 06/27/19 04:13 D-Dimer < 135.00 ng/mlDDU (0-234) 06/25/19 20:04 Sodium 142 mmol/L (137-145) 07/01/19 03:46 Potassium 4.2 mmol/L (3.6-5.0) 07/01/19 03:46 Chloride 101.6 mmol/L (98-107) 07/01/19 03:46 Carbon Dioxide 21 mmol/L (22-30) L 07/01/19 03:46 Anion Gap 24 mmol/L 07/01/19 03:46 BUN 27 mg/dL (7-17) H 07/01/19 03:46 Creatinine 1.6 mg/dL (0.7-1.2) H 07/01/19 03:46 Estimated GFR 32 ml/min 07/01/19 03:46 BUN/Creatinine Ratio 17 % 07/01/19 03:46 Glucose 86 mg/dL (65-100) 07/01/19 03:46 POC Glucose 142 (70-105) H 07/01/19 12:01 Hemoglobin A1c 6.1 % (4-6) H 06/26/19 05:46 Calcium 8.9 mg/dL (8.4-10.2) 07/01/19 03:46 Phosphorus 4.20 mg/dL (2.5-4.5) 06/29/19 06:58 Magnesium 2.20 mg/dL (1.7-2.3) 06/29/19 06:58 Iron 15 ug/dL (37-170) L 06/28/19 10:50 TIBC 426 mcg/dL (250-450) 06/28/19 10:50 Total Creatine Kinase 64 units/L (30-135) 06/25/19 20:04 CK-MB (CK-2) 1.7 ng/mL (0.0-4.0) 06/25/19 20:04 CK-MB (CK-2) Rel Index 2.6 (0-4) 06/25/19 20:04 Troponin T < 0.010 ng/mL (0.00-0.029) 06/26/19 13:18 Vitamin B12 376.1 pg/mL (211-911) 06/28/19 10:50 Folate 5.43 ng/mL (7.3-26.0) L 06/28/19 10:50 PTH Intact 181.5 pg/mL (15-65) H 06/29/19 06:58 Urine Color Yellow (Yellow) 06/28/19 Unknown Urine Turbidity Clear (Clear) 06/28/19 Unknown Urine pH 5.0 (5.0-7.0) 06/28/19 Unknown Ur Specific [place] 1.009 (1.003-1.030) 06/28/19 Unknown Urine Protein <15 mg/dl mg/dL (Negative) 06/28/19 Unknown Urine Glucose (UA) Neg mg/dL (Negative) 06/28/19 Unknown Urine Ketones Neg mg/dL (Negative) 06/28/19 Unknown Urine Blood Neg (Negative) 06/28/19 Unknown Urine Nitrite Neg (Negative) 06/28/19 Unknown Urine Bilirubin Neg (Negative) 06/28/19 Unknown Urine Urobilinogen < 2.0 mg/dL (<2.0) 06/28/19 Unknown Ur Leukocyte Esterase Neg (Negative) 06/28/19 Unknown Urine WBC (Auto) 1.0 /HPF (0.0-6.0) 06/28/19 Unknown Urine RBC (Auto) 1.0 /HPF (0.0-6.0) 06/28/19 Unknown U Epithel Cells (Auto) < 1.0 /HPF (0-13.0) 06/28/19 Unknown Urine Bacteria (Auto) 2+ /HPF (Negative) 06/28/19 Unknown Hyaline Casts 2 /LPF 06/28/19 Unknown Urine Mucus Few /HPF 06/28/19 Unknown Urine Eosinophils None seen (None Seen) 06/28/19 Unknown Urine Creatinine 40.1 mg/dL (0.1-20.0) H 06/28/19 Unknown Urine Sodium 67 mmol/L 06/28/19 Unknown Active Medications - Current Medications Current Medications: Generic Name Dose Route Start Last Admin Trade Name Freq PRN Reason Stop Dose Admin Acetaminophen 650 mg 06/26/19 02:20 06/27/19 06:37 Tylenol PO 650 mg Q4H PRN Administration Pain MILD(1-3)/Fever >100.5/MCCALL Acetaminophen/Hydrocodone Bitart 1 each 06/26/19 15:00 07/01/19 05:14 [place] 5/325 PO 1 each Q4H PRN Administration Pain, Moderate (4-6) Albuterol 2.5 mg 06/26/19 16:37 Proventil IH Q4HRT PRN Shortness Of Breath Albuterol/Ipratropium 1 ampul 06/26/19 20:00 07/01/19 13:29 Duoneb *Not For Prn Use* IH 1 ampul Q6HRT IVETTE Administration Amiodarone HCl 200 mg 06/26/19 10:00 07/01/19 11:00 Cordarone PO 200 mg DAILY IVETTE Administration Arformoterol Tartrate 15 mcg 06/26/19 20:00 07/01/19 07:53 Brovana Nebu IH 15 mcg Q12HRT IVETTE Administration Aspirin 81 mg 06/26/19 10:00 07/01/19 11:02 Baby Aspirin PO 81 mg QDAY IVETTE Administration Bismuth Subsalicylate 262 mg 06/28/19 13:04 06/28/19 14:40 Pepto Bismol PO 262 mg Q6H PRN Administration Indigestion Budesonide 0.5 mg 06/26/19 20:00 07/01/19 07:53 Pulmicort IH 0.5 mg Q12HRT IVETTE Administration Dabigatran 150 mg 06/26/19 10:00 07/01/19 11:02 Pradaxa PO 150 mg BID IVETTE Administration Protocol Dextrose 50 ml 06/26/19 02:20 D50w (25gm) Syringe IV Q30MIN PRN Hypoglycemia Protocol Docusate Sodium 100 mg 06/26/19 10:00 07/01/19 11:01 Colace PO 100 mg BID IVETTE Administration Ferrous Sulfate 325 mg 06/28/19 14:00 07/01/19 11:01 Feosol PO 325 mg TID IVETTE Administration Fluconazole 100 mg 06/30/19 17:00 07/01/19 11:01 Diflucan PO 07/06/19 10:01 100 mg QDAY IVETTE Administration Furosemide 40 mg 06/30/19 08:30 07/01/19 06:37 Lasix IV 40 mg 0600,1800 IVETTE Administration Guaifenesin 600 mg 06/26/19 10:00 07/01/19 11:01 Mucinex Er PO 600 mg BID IVETTE Administration Azithromycin 500 mg/ Sodium 250 mls @ 250 mls/hr 06/26/19 22:00 06/30/19 22:18 Chloride IV 07/01/19 21:59 250 mls/hr Q24H IVETTE Administration Protocol Sodium Chloride 1,000 mls @ 125 mls/hr 06/26/19 13:00 06/29/19 05:51 Nacl 0.9% 1000 Ml IV 125 mls/hr DIRECT IVETTE Administration Sodium Chloride 1,000 mls @ 50 mls/hr 06/30/19 15:29 06/30/19 15:45 Nacl 0.9% 1000 Ml IV 50 mls/hr DIRECT IVETTE Administration Linagliptin 5 mg 07/01/19 13:00 Tradjenta PO QDDIAB IVETTE Metoprolol Tartrate 25 mg 06/26/19 10:00 07/01/19 11:02 Metoprolol PO 25 mg BID IVETTE Administration Morphine Sulfate 2 mg 06/27/19 10:10 06/30/19 11:46 Morphine IV 2 mg Q4H PRN Administration Pain , Severe (7-10) Pantoprazole Sodium 40 mg 07/01/19 10:00 07/01/19 11:01 Protonix PO 40 mg DAILY IVETTE Administration Polyethylene Glycol 17 gm 06/28/19 14:00 07/01/19 11:01 Miralax 3350 PO 17 gm QDAY IVETTE Administration Prednisone 40 mg 06/28/19 10:00 07/01/19 11:01 Deltasone PO 40 mg QDAY IVETTE Administration Simethicone 80 mg 06/26/19 11:03 06/26/19 22:30 Mylicon PO 80 mg Q6H PRN Administration Gas pain Sodium Chloride 10 ml 06/26/19 10:00 07/01/19 11:02 Sodium Chloride Flush Syringe 10 Ml IV 10 ml BID IVETTE Administration Sodium Chloride 10 ml 06/26/19 02:20 06/27/19 01:58 Sodium Chloride Flush Syringe 10 Ml IV 10 ml PRN PRN Administration LINE FLUSH
--- NOTE | 2019-07-01 14:09 | Progress Note ---
Assessment and Plan Assessment and plan: 69-year-old woman who presented to the hospital with pain shortness of breath, wheezing and odynophagia Past medical history; CAD status post CABG, PAF, sick sinus syndrome status post pacemaker, PAD with left carotid stenosis, hypertension, diabetes, obesity, gout, hyperlipidemia. * highly doubt bronchitis, has received steroids and nebs * is currently fluid overloaded, cont on IV lasix * Creatinine has been stable. Last documented creatinine in our system was from 2017. It is likely that this is the patient's baseline creatinine and that she is actually having chronic kidney disease and not acute kidney disease. Nephrology consult appreciated, hyperkalemia has resolved Renal ultrasound negative for hydronephrosis. * GI consult appreciated, continue Protonix, white flaking material with ringed liked esophagus noted mid/distal 2/3 esophagus, bx's, suspect more likely EOE than Delia, on diflucan * Rate controlled for A. fib and on Pradaxa for stroke prophylaxis Patient is to continue insulins for type 2 diabetes, start on oral meds (she was advised to stay of metformin) Preventative health counseling performed for 17 minutes Patient needs outpatient weight loss clinic Diagnosis Acute bronchitis ruled out Acute on chronic diastolic CHF Coronary artery disease Odynophagia A. fib with hypercoagulable state CKD Esophagitis, EOE vs delia infection History Interval history: Review of systems Constitutional: No fevers, no malaise, no joint pains CVS: c/o orthopnea and pedal edema, no chest pain GI: No abdominal pain, no diarrhea, no vomiting, no constipation, continues to complain of odynophagia Respiratory: no cough or wheeze Hospitalist Physical - Physical exam Narrative exam: General.: Mild distress HEENT: Moist mucous membranes, extraocular muscles intact, no lymphadenopathy Neck: supple Cardiac: S1-S2 heard Lungs: rales at bases Abdomen: soft , nontender, nondistended, bowel sounds positive Extremities: BL edema Skin: no rash or lesions Neurologic: no gross focal deficits Psych: calm, and cooperative - Constitutional Vitals: Temp Pulse Resp BP Pulse Ox 98.0 F 65 18 126/61 95 07/01/19 11:56 07/01/19 11:56 07/01/19 11:56 07/01/19 11:56 07/01/19 11:56 General appearance: Present: no acute distress, obese Results - Labs CBC & Chem 7: 06/27/19 04:13 07/01/19 03:46 Labs: Laboratory Last Values WBC 8.5 K/mm3 (4.5-11.0) 06/27/19 04:13 RBC 3.24 M/mm3 (3.65-5.03) L 06/27/19 04:13 Hgb 7.8 gm/dl (10.1-14.3) L 06/27/19 04:13 Hct 26.0 % (30.3-42.9) L 06/27/19 04:13 MCV 80 fl (79-97) 06/27/19 04:13 MCH 24 pg (28-32) L 06/27/19 04:13 MCHC 30 % (30-34) 06/27/19 04:13 RDW 18.6 % (13.2-15.2) H 06/27/19 04:13 Plt Count 249 K/mm3 (140-440) 06/27/19 04:13 Lymph % (Auto) Second Chef 06/27/19 04:13 [place] % (Auto) Second Chef 06/27/19 04:13 Eos % (Auto) Second Chef 06/27/19 04:13 Baso % (Auto) Second Chef 06/27/19 04:13 Lymph # Second Chef 06/27/19 04:13 [place] # Second Chef 06/27/19 04:13 Eos # Second Chef 06/27/19 04:13 Baso # Second Chef 06/27/19 04:13 Add Manual Diff Complete 06/27/19 04:13 Total Counted 100 06/27/19 04:13 Seg Neutrophils % Second Chef 06/27/19 04:13 Seg Neuts % (Manual) 92.0 % (40.0-70.0) H 06/27/19 04:13 Band Neutrophils % 0 % 06/27/19 04:13 Lymphocytes % (Manual) 6.0 % (13.4-35.0) L 06/27/19 04:13 Reactive Lymphs % (Man) 0 % 06/27/19 04:13 Monocytes % (Manual) 2.0 % (0.0-7.3) 06/27/19 04:13 Eosinophils % (Manual) 0 % (0.0-4.3) 06/27/19 04:13 Basophils % (Manual) 0 % (0.0-1.8) 06/27/19 04:13 Metamyelocytes % 0 % 06/27/19 04:13 Myelocytes % 0 % 06/27/19 04:13 Promyelocytes % 0 % 06/27/19 04:13 Blast Cells % 0 % 06/27/19 04:13 Nucleated RBC % Not Reportable 06/27/19 04:13 Seg Neutrophils # Second Chef 06/27/19 04:13 Seg Neutrophils # Man 7.8 K/mm3 (1.8-7.7) H 06/27/19 04:13 Band Neutrophils # 0.0 K/mm3 06/27/19 04:13 Lymphocytes # (Manual) 0.5 K/mm3 (1.2-5.4) L 06/27/19 04:13 Abs React Lymphs (Man) 0.0 K/mm3 06/27/19 04:13 Monocytes # (Manual) 0.2 K/mm3 (0.0-0.8) 06/27/19 04:13 Eosinophils # (Manual) 0.0 K/mm3 (0.0-0.4) 06/27/19 04:13 Basophils # (Manual) 0.0 K/mm3 (0.0-0.1) 06/27/19 04:13 Metamyelocytes # 0.0 K/mm3 06/27/19 04:13 Myelocytes # 0.0 K/mm3 06/27/19 04:13 Promyelocytes # 0.0 K/mm3 06/27/19 04:13 Blast Cells # 0.0 K/mm3 06/27/19 04:13 WBC Morphology Not Reportable 06/27/19 04:13 Hypersegmented Neuts Not Reportable 06/27/19 04:13 Hyposegmented Neuts Not Reportable 06/27/19 04:13 Hypogranular Neuts Not Reportable 06/27/19 04:13 Smudge Cells Not Reportable 06/27/19 04:13 Toxic Granulation Not Reportable 06/27/19 04:13 Toxic Vacuolation Not Reportable 06/27/19 04:13 Dohle Bodies Not Reportable 06/27/19 04:13 Pelger-Huet Anomaly Not Reportable 06/27/19 04:13 Sami Rods Not Reportable 06/27/19 04:13 Platelet Estimate Consistent w auto 06/27/19 04:13 Clumped Platelets Not Reportable 06/27/19 04:13 Plt Clumps, EDTA Not Reportable 06/27/19 04:13 Large Platelets Not Reportable 06/27/19 04:13 Giant Platelets Not Reportable 06/27/19 04:13 Platelet Satelliting Not Reportable 06/27/19 04:13 Plt Morphology Comment Not Reportable 06/27/19 04:13 RBC Morphology Not Reportable 06/27/19 04:13 Dimorphic RBCs Not Reportable 06/27/19 04:13 Polychromasia Rare 06/27/19 04:13 Hypochromasia Few 06/27/19 04:13 Poikilocytosis Not Reportable 06/27/19 04:13 Anisocytosis Not Reportable 06/27/19 04:13 Microcytosis Not Reportable 06/27/19 04:13 Macrocytosis Not Reportable 06/27/19 04:13 Spherocytes Not Reportable 06/27/19 04:13 Pappenheimer Bodies Not Reportable 06/27/19 04:13 Sickle Cells Not Reportable 06/27/19 04:13 Target Cells Not Reportable 06/27/19 04:13 Tear Drop Cells Rare 06/27/19 04:13 Ovalocytes Not Reportable 06/27/19 04:13 Helmet Cells Not Reportable 06/27/19 04:13 [place] Bodies Not Reportable 06/27/19 04:13 [place] Rings Not Reportable 06/27/19 04:13 [place] Cells Not Reportable 06/27/19 04:13 Bite Cells Not Reportable 06/27/19 04:13 Crenated Cell Not Reportable 06/27/19 04:13 Elliptocytes Rare 06/27/19 04:13 Acanthocytes (Spur) Not Reportable 06/27/19 04:13 Rouleaux Not Reportable 06/27/19 04:13 Hemoglobin C Crystals Not Reportable 06/27/19 04:13 Schistocytes Not Reportable 06/27/19 04:13 Malaria parasites Not Reportable 06/27/19 04:13 Joey Bodies Not Reportable 06/27/19 04:13 Hem Pathologist Commnt No 06/27/19 04:13 D-Dimer < 135.00 ng/mlDDU (0-234) 06/25/19 20:04 Sodium 142 mmol/L (137-145) 07/01/19 03:46 Potassium 4.2 mmol/L (3.6-5.0) 07/01/19 03:46 Chloride 101.6 mmol/L (98-107) 07/01/19 03:46 Carbon Dioxide 21 mmol/L (22-30) L 07/01/19 03:46 Anion Gap 24 mmol/L 07/01/19 03:46 BUN 27 mg/dL (7-17) H 07/01/19 03:46 Creatinine 1.6 mg/dL (0.7-1.2) H 07/01/19 03:46 Estimated GFR 32 ml/min 07/01/19 03:46 BUN/Creatinine Ratio 17 % 07/01/19 03:46 Glucose 86 mg/dL (65-100) 07/01/19 03:46 POC Glucose 142 (70-105) H 07/01/19 12:01 Hemoglobin A1c 6.1 % (4-6) H 06/26/19 05:46 Calcium 8.9 mg/dL (8.4-10.2) 07/01/19 03:46 Phosphorus 4.20 mg/dL (2.5-4.5) 06/29/19 06:58 Magnesium 2.20 mg/dL (1.7-2.3) 06/29/19 06:58 Iron 15 ug/dL (37-170) L 06/28/19 10:50 TIBC 426 mcg/dL (250-450) 06/28/19 10:50 Total Creatine Kinase 64 units/L (30-135) 06/25/19 20:04 CK-MB (CK-2) 1.7 ng/mL (0.0-4.0) 06/25/19 20:04 CK-MB (CK-2) Rel Index 2.6 (0-4) 06/25/19 20:04 Troponin T < 0.010 ng/mL (0.00-0.029) 06/26/19 13:18 Vitamin B12 376.1 pg/mL (211-911) 06/28/19 10:50 Folate 5.43 ng/mL (7.3-26.0) L 06/28/19 10:50 PTH Intact 181.5 pg/mL (15-65) H 06/29/19 06:58 Urine Color Yellow (Yellow) 06/28/19 Unknown Urine Turbidity Clear (Clear) 06/28/19 Unknown Urine pH 5.0 (5.0-7.0) 06/28/19 Unknown Ur Specific [place] 1.009 (1.003-1.030) 06/28/19 Unknown Urine Protein <15 mg/dl mg/dL (Negative) 06/28/19 Unknown Urine Glucose (UA) Neg mg/dL (Negative) 06/28/19 Unknown Urine Ketones Neg mg/dL (Negative) 06/28/19 Unknown Urine Blood Neg (Negative) 06/28/19 Unknown Urine Nitrite Neg (Negative) 06/28/19 Unknown Urine Bilirubin Neg (Negative) 06/28/19 Unknown Urine Urobilinogen < 2.0 mg/dL (<2.0) 06/28/19 Unknown Ur Leukocyte Esterase Neg (Negative) 06/28/19 Unknown Urine WBC (Auto) 1.0 /HPF (0.0-6.0) 06/28/19 Unknown Urine RBC (Auto) 1.0 /HPF (0.0-6.0) 06/28/19 Unknown U Epithel Cells (Auto) < 1.0 /HPF (0-13.0) 06/28/19 Unknown Urine Bacteria (Auto) 2+ /HPF (Negative) 06/28/19 Unknown Hyaline Casts 2 /LPF 06/28/19 Unknown Urine Mucus Few /HPF 06/28/19 Unknown Urine Eosinophils None seen (None Seen) 06/28/19 Unknown Urine Creatinine 40.1 mg/dL (0.1-20.0) H 06/28/19 Unknown Urine Sodium 67 mmol/L 06/28/19 Unknown Active Medications - Current Medications Current Medications: Generic Name Dose Route Start Last Admin Trade Name Freq PRN Reason Stop Dose Admin Acetaminophen 650 mg 06/26/19 02:20 06/27/19 06:37 Tylenol PO 650 mg Q4H PRN Administration Pain MILD(1-3)/Fever >100.5/MCCALL Acetaminophen/Hydrocodone Bitart 1 each 06/26/19 15:00 07/01/19 05:14 [place] 5/325 PO 1 each Q4H PRN Administration Pain, Moderate (4-6) Albuterol 2.5 mg 06/26/19 16:37 Proventil IH Q4HRT PRN Shortness Of Breath Albuterol/Ipratropium 1 ampul 06/26/19 20:00 07/01/19 13:29 Duoneb *Not For Prn Use* IH 1 ampul Q6HRT IVETTE Administration Amiodarone HCl 200 mg 06/26/19 10:00 07/01/19 11:00 Cordarone PO 200 mg DAILY IVETTE Administration Arformoterol Tartrate 15 mcg 06/26/19 20:00 07/01/19 07:53 Brovana Nebu IH 15 mcg Q12HRT IVETTE Administration Aspirin 81 mg 06/26/19 10:00 07/01/19 11:02 Baby Aspirin PO 81 mg QDAY IVETTE Administration Bismuth Subsalicylate 262 mg 06/28/19 13:04 06/28/19 14:40 Pepto Bismol PO 262 mg Q6H PRN Administration Indigestion Dabigatran 150 mg 06/26/19 10:00 07/01/19 11:02 Pradaxa PO 150 mg BID IVETTE Administration Protocol Dextrose 50 ml 06/26/19 02:20 D50w (25gm) Syringe IV Q30MIN PRN Hypoglycemia Protocol Docusate Sodium 100 mg 06/26/19 10:00 07/01/19 11:01 Colace PO 100 mg BID IVETTE Administration Ferrous Sulfate 325 mg 06/28/19 14:00 07/01/19 11:01 Feosol PO 325 mg TID IVETTE Administration Fluconazole 100 mg 06/30/19 17:00 07/01/19 11:01 Diflucan PO 07/06/19 10:01 100 mg QDAY IVETTE Administration Furosemide 40 mg 06/30/19 08:30 07/01/19 06:37 Lasix IV 40 mg 0600,1800 IVETTE Administration Guaifenesin 600 mg 06/26/19 10:00 07/01/19 11:01 Mucinex Er PO 600 mg BID IVETTE Administration Azithromycin 500 mg/ Sodium 250 mls @ 250 mls/hr 06/26/19 22:00 06/30/19 22:18 Chloride IV 07/01/19 21:59 250 mls/hr Q24H IVETTE Administration Protocol Sodium Chloride 1,000 mls @ 125 mls/hr 06/26/19 13:00 06/29/19 05:51 Nacl 0.9% 1000 Ml IV 125 mls/hr DIRECT IVETTE Administration Sodium Chloride 1,000 mls @ 50 mls/hr 06/30/19 15:29 06/30/19 15:45 Nacl 0.9% 1000 Ml IV 50 mls/hr DIRECT IVETTE Administration Linagliptin 5 mg 07/01/19 13:00 Tradjenta PO QDDIAB IVETTE Metoprolol Tartrate 25 mg 06/26/19 10:00 07/01/19 11:02 Metoprolol PO 25 mg BID IVETTE Administration Morphine Sulfate 2 mg 06/27/19 10:10 06/30/19 11:46 Morphine IV 2 mg Q4H PRN Administration Pain , Severe (7-10) Pantoprazole Sodium 40 mg 07/01/19 10:00 07/01/19 11:01 Protonix PO 40 mg DAILY IVETTE Administration Polyethylene Glycol 17 gm 06/28/19 14:00 07/01/19 11:01 Miralax 3350 PO 17 gm QDAY IVETTE Administration Simethicone 80 mg 06/26/19 11:03 06/26/19 22:30 Mylicon PO 80 mg Q6H PRN Administration Gas pain Sodium Chloride 10 ml 06/26/19 10:00 07/01/19 11:02 Sodium Chloride Flush Syringe 10 Ml IV 10 ml BID IVETTE Administration Sodium Chloride 10 ml 06/26/19 02:20 06/27/19 01:58 Sodium Chloride Flush Syringe 10 Ml IV 10 ml PRN PRN Administration LINE FLUSH
[2019-07-01] MEDS: LINAGLIPTIN 5 MG TAB PO SCH (14:49)
[2019-07-02] MEDS: IPRATROPIUM/ALBUTEROL SULFATE 3 ML AMPUL.NEB IH SCH ×2 (02:47→07:48)
[2019-07-02 05:04] LABS: Calcium 8.7 mg/dL (8.4-10.2)
[2019-07-02 05:19] VITALS: BP 116/62
[2019-07-02] MEDS: FUROSEMIDE 40 MG/4 ML INJ IV SCH (06:40)
[2019-07-02] MEDS: ARFORMOTEROL 15 MCG/2 ML NEBU IH SCH (07:46)
--- NOTE | 2019-07-02 09:52 | Progress Note ---
Assessment and Plan Acute heart failure with preserved ejection fraction Pulmonary venous congestion Acute bronchitis Diabetes HTN (hypertension) Morbid obesity - diuresis - BIPAP qhs for PATTIE - continue supplemental oxygen as needed to keep O2 sat's > 90% - continue bronchodilators with pulmonary hygiene per RT - continue systemic steroids with taper - continue inhaled corticosteroids - complete empiric CAP AB's therapy with Zithroma - PT/OT as tolerated - mobility protocols for pressure ulcer prophylaxis - continue accuchecks with glycemic control per SSI for target BG < 180 mg/dl - GI & VTE prophylaxis - Flu & pneumovax addressed per protocol - continue other care per attending / other consultants ... re-evaluate in am & prn Subjective Date of service: 07/02/19 Principal diagnosis: Acute HFpEF exacerbation; Diabetes type II; HTN; PATTIE; Morb id obesity Interval history: Patient is seen today for: Acute heart failure with preserved ejection fraction; Pulmonary venous congestion; Diabetes type II; HTN; PATTIE; Morbid obesity Seen and examined at bedside; 24-hour events reviewed; nursing and respiratory care staff consulted; no adverse overnight events reported to me; resting peacefully in bed; no acute distress Objective Vital Signs - 12hr 07/01/19 07/01/19 07/02/19 22:00 22:55 00:38 Temperature Pulse Rate 63 65 63 Pulse Rate [ Bilateral] Pulse Rate [ 63 From Monitor] Pulse Rate [ 66 Radial] Respiratory 20 Rate Respiratory Rate [Bilateral ] Blood Pressure 126/59 114/43 O2 Sat by Pulse 96 Oximetry 07/02/19 07/02/19 07/02/19 02:47 04:41 05:19 Temperature 98.3 F Pulse Rate 63 Pulse Rate [ 71 Bilateral] Pulse Rate [ From Monitor] Pulse Rate [ Radial] Respiratory 20 Rate Respiratory 18 Rate [Bilateral ] Blood Pressure 116/62 O2 Sat by Pulse 98 Oximetry 07/02/19 07:47 Temperature Pulse Rate Pulse Rate [ 79 Bilateral] Pulse Rate [ From Monitor] Pulse Rate [ Radial] Respiratory Rate Respiratory 18 Rate [Bilateral ] Blood Pressure O2 Sat by Pulse Oximetry Constitutional: no acute distress, alert Eyes: non-icteric ENT: oropharynx moist Neck: supple, no JVD Ascultation: Bilateral: diminished breath sounds, rales Cardiovascular: regular rate and rhythm Gastrointestinal: normoactive bowel sounds, soft, non-tender Integumentary: normal Extremities: no cyanosis, no edema Neurologic: normal mental status, non-focal exam, pupils equal and round, CN II- XII normal Psychiatric: depressed CBC and BMP: 06/27/19 04:13 07/02/19 03:57 ABG, PT/INR, D-dimer: ABG POC ABG pH 7.420 (7.35-7.45) 07/01/19 13:49 POC ABG pCO2 41.9 (35-45) 07/01/19 13:49 POC ABG pO2 73 (80-105) L 07/01/19 13:49 POC ABG HCO3 27.2 (22-26 mml/L) 07/01/19 13:49 POC ABG Total CO2 28 (23-27mmol/L) 07/01/19 13:49 POC ABG O2 Sat 95 07/01/19 13:49 PT/INR, D-dimer D-Dimer < 135.00 ng/mlDDU (0-234) 06/25/19 20:04 Abnormal lab findings: Abnormal Labs 06/25/19 06/25/19 06/26/19 20:04 20:04 05:46 RBC 3.21 L Hgb 7.9 L Hct 27.0 L MCH 25 L MCHC 29 L RDW 19.8 H Lymph # 1.0 L Seg Neutrophils % 78.8 H Seg Neuts % (Manual) Lymphocytes % (Manual) Seg Neutrophils # Man Lymphocytes # (Manual) POC ABG pO2 Sodium Potassium Chloride Carbon Dioxide 17 L BUN 27 H Creatinine 1.5 H Glucose 178 H POC Glucose Hemoglobin A1c 6.1 H Magnesium Iron Folate PTH Intact Urine Creatinine 06/26/19 06/26/19 06/26/19 08:11 11:32 16:10 RBC Hgb Hct MCH MCHC RDW Lymph # Seg Neutrophils % Seg Neuts % (Manual) Lymphocytes % (Manual) Seg Neutrophils # Man Lymphocytes # (Manual) POC ABG pO2 Sodium Potassium Chloride Carbon Dioxide BUN Creatinine Glucose POC Glucose 251 H 379 H 315 H Hemoglobin A1c Magnesium Iron Folate PTH Intact Urine Creatinine 06/26/19 06/27/19 06/27/19 21:49 04:13 04:13 RBC 3.24 L Hgb 7.8 L Hct 26.0 L MCH 24 L MCHC RDW 18.6 H Lymph # Seg Neutrophils % Seg Neuts % (Manual) 92.0 H Lymphocytes % (Manual) 6.0 L Seg Neutrophils # Man 7.8 H Lymphocytes # (Manual) 0.5 L POC ABG pO2 Sodium Potassium 5.3 H Chloride Carbon Dioxide 18 L BUN 33 H Creatinine 1.7 H Glucose 117 H POC Glucose 330 H Hemoglobin A1c Magnesium 2.40 H Iron Folate PTH Intact Urine Creatinine 06/27/19 06/27/19 06/27/19 08:25 12:04 17:06 RBC Hgb Hct MCH MCHC RDW Lymph # Seg Neutrophils % Seg Neuts % (Manual) Lymphocytes % (Manual) Seg Neutrophils # Man Lymphocytes # (Manual) POC ABG pO2 Sodium Potassium Chloride Carbon Dioxide BUN Creatinine Glucose POC Glucose 196 H 267 H 207 H Hemoglobin A1c Magnesium Iron Folate PTH Intact Urine Creatinine 06/27/19 06/28/19 06/28/19 21:20 08:23 10:50 RBC Hgb Hct MCH MCHC RDW Lymph # Seg Neutrophils % Seg Neuts % (Manual) Lymphocytes % (Manual) Seg Neutrophils # Man Lymphocytes # (Manual) POC ABG pO2 Sodium 136 L Potassium Chloride Carbon Dioxide 15 L BUN 42 H Creatinine 1.7 H Glucose POC Glucose 202 H 49 L Hemoglobin A1c Magnesium Iron 15 L Folate PTH Intact Urine Creatinine 06/28/19 06/28/19 06/28/19 10:50 18:40 22:12 RBC Hgb Hct MCH MCHC RDW Lymph # Seg Neutrophils % Seg Neuts % (Manual) Lymphocytes % (Manual) Seg Neutrophils # Man Lymphocytes # (Manual) POC ABG pO2 Sodium Potassium Chloride Carbon Dioxide BUN Creatinine Glucose POC Glucose 230 H 146 H Hemoglobin A1c Magnesium Iron Folate 5.43 L PTH Intact Urine Creatinine 06/28/19 06/29/19 06/29/19 Unknown 06:58 06:58 RBC Hgb Hct MCH MCHC RDW Lymph # Seg Neutrophils % Seg Neuts % (Manual) Lymphocytes % (Manual) Seg Neutrophils # Man Lymphocytes # (Manual) POC ABG pO2 Sodium Potassium Chloride 108.1 H Carbon Dioxide 15 L BUN 37 H Creatinine 1.7 H Glucose POC Glucose Hemoglobin A1c Magnesium Iron Folate PTH Intact 181.5 H Urine Creatinine 40.1 H 06/29/19 06/29/19 06/30/19 17:48 21:20 04:00 RBC Hgb Hct MCH MCHC RDW Lymph # Seg Neutrophils % Seg Neuts % (Manual) Lymphocytes % (Manual) Seg Neutrophils # Man Lymphocytes # (Manual) POC ABG pO2 Sodium Potassium Chloride Carbon Dioxide 20 L BUN 32 H Creatinine 1.5 H Glucose POC Glucose 255 H 242 H Hemoglobin A1c Magnesium Iron Folate PTH Intact Urine Creatinine 06/30/19 07/01/19 07/01/19 21:06 03:46 12:01 RBC Hgb Hct MCH MCHC RDW Lymph # Seg Neutrophils % Seg Neuts % (Manual) Lymphocytes % (Manual) Seg Neutrophils # Man Lymphocytes # (Manual) POC ABG pO2 Sodium Potassium Chloride Carbon Dioxide 21 L BUN 27 H Creatinine 1.6 H Glucose POC Glucose 177 H 142 H Hemoglobin A1c Magnesium Iron Folate PTH Intact Urine Creatinine 07/01/19 07/01/19 07/01/19 13:49 16:33 22:11 RBC Hgb Hct MCH MCHC RDW Lymph # Seg Neutrophils % Seg Neuts % (Manual) Lymphocytes % (Manual) Seg Neutrophils # Man Lymphocytes # (Manual) POC ABG pO2 73 L Sodium Potassium Chloride Carbon Dioxide BUN Creatinine Glucose POC Glucose 258 H 142 H Hemoglobin A1c Magnesium Iron Folate PTH Intact Urine Creatinine 07/02/19 03:57 RBC Hgb Hct MCH MCHC RDW Lymph # Seg Neutrophils % Seg Neuts % (Manual) Lymphocytes % (Manual) Seg Neutrophils # Man Lymphocytes # (Manual) POC ABG pO2 Sodium Potassium Chloride Carbon Dioxide 21 L BUN 27 H Creatinine 1.6 H Glucose 115 H POC Glucose Hemoglobin A1c Magnesium Iron Folate PTH Intact Urine Creatinine
--- NOTE | 2019-07-02 10:19 | Discharge Summary ---
Providers - Providers Date of Admission: 06/27/19 11:32 Attending physician: POORNIMA ARORA MD 06/27/19 10:14 Consult to Physician [CONS] Routine Comment: Consulting Provider: OMAR PEARSON Physician Instructions: Reason For Exam: ODYNOPHAGIA 06/28/19 07:31 Physical Therapy Evaluation and Treat [CONS] Routine Comment: Reason For Exam: GENERALIZED WEAKNESS 06/28/19 11:45 Consult to Physician [CONS] Routine Comment: Consulting Provider: SHAILESH LI Physician Instructions: Reason For Exam: JODI 06/29/19 16:14 Consult to Physician [CONS] Routine Comment: Consulting Provider: DESMOND PEREZ Physician Instructions: Reason For Exam: SOB 06/30/19 07:53 Consult to Physician [CONS] Routine Comment: Consulting Provider: OCTAVIO DOWNS Physician Instructions: Reason For Exam: cad, need eval prior to egd Primary care physician: LETI MANZANO NP Hospitalization Condition: Stable Hospital course: 69-year-old woman who presented to the hospital with pain shortness of breath, wheezing and odynophagia Past medical history; CAD status post CABG, PAF, sick sinus syndrome status post pacemaker, PAD with left carotid stenosis, hypertension, diabetes, obesity, gout, hyperlipidemia. * highly doubt bronchitis, has received steroids and nebs * She was diuresed after which shortness of breath and lower extremity swelling resolved * Creatinine has been stable. Last documented creatinine in our system was from 2017. It is likely that this is the patient's baseline creatinine and that she is actually having chronic kidney disease and not acute kidney disease. Nephrology consult appreciated, hyperkalemia has resolved Renal ultrasound negative for hydronephrosis. Given elevated creatinine metformin was discontinued She had a few episodes of hypoglycemia, therefore she was taken off glimepiride in favor of linagliptin which is less likely to cause hypoglycemia * GI consult appreciated, continue Protonix, white flaking material with ringed liked esophagus noted mid/distal 2/3 esophagus, bx's, suspect more likely EOE than Delia, on diflucan x 7 days total. To follow-up with GI as an outpati ent for her biopsy results * Rate controlled for A. fib and on Pradaxa for stroke prophylaxis Patient is to continue insulins for type 2 diabetes, start on oral meds (she was advised to stay of metformin) Preventative health counseling performed for 17 minutes Patient needs outpatient weight loss clinic Diagnosis Acute bronchitis ruled out Acute on chronic diastolic CHF Coronary artery disease Odynophagia A. fib with hypercoagulable state CKD Esophagitis, EOE vs delia infection Type 2 diabetes Disposition: DC-01 TO HOME OR SELFCARE Time spent for discharge: 33 mins Core Measure Documentation - Palliative Care Palliative Care/ Comfort Measures: Not Applicable - Core Measures Any of the following diagnoses?: none Exam - Constitutional Vitals: Temp Pulse Resp BP Pulse Ox 98.3 F 79 18 116/62 98 07/02/19 05:19 07/02/19 07:47 07/02/19 07:47 07/02/19 04:41 07/02/19 04:41 General appearance: Present: no acute distress, well-nourished - EENT Eyes: Present: PERRL ENT: hearing intact, clear oral mucosa - Neck Neck: Present: supple, normal ROM - Respiratory Respiratory effort: normal Respiratory: bilateral: CTA - Cardiovascular Heart Sounds: Present: S1 & S2. Absent: rub, click - Extremities Extremities: pulses symmetrical, No edema Peripheral Pulses: within normal limits - Abdominal General gastrointestinal: Present: soft, non-tender, non-distended, normal bowel sounds Female genitourinary: Present: normal - Integumentary Integumentary: Present: clear, warm, dry - Musculoskeletal Musculoskeletal: gait normal, strength equal bilaterally - Psychiatric Psychiatric: appropriate mood/affect, intact judgment & insight - Neurologic Neurologic: CNII-XII intact, moves all extremities Plan Follow up with: PRIMARY CARE, [Referring] - 7 Days OMAR PEARSON MD [Staff Physician] - 7 Days Prescriptions: Fluconazole [Diflucan TAB] 100 mg PO QDAY #5 tablet Furosemide [Lasix TAB] 40 mg PO BID #60 tablet HYDROcodone/APAP 5-325 [[place] 5-325 mg TAB] 1 each PO Q4H PRN #14 tablet PRN Reason: Pain, Moderate (4-6) Pantoprazole [Protonix TAB] 40 mg PO DAILY #30 tablet Linagliptin [Tradjenta] 5 mg PO QDDIAB #30 tablet
--- NOTE | 2019-07-02 10:37 | Progress Note ---
Assessment and Plan Cardiac status is stable. She may be discharged home from our perspective. Follow up with primary telemarketing fundraiser in 7-10 days ([phone]). The patient has been seen in conjunction with Dr. Kaylie Sheffield, who agrees with the assessment and plan. - Patient Problems (1) Chest pain Current Visit: Yes Status: Acute (2) Acute respiratory failure Current Visit: Yes Status: Acute (3) Gout Current Visit: Yes Status: Acute (4) CAD (coronary artery disease) Current Visit: Yes Status: Chronic (5) Cardiac pacemaker in situ Current Visit: Yes Status: Chronic (6) Diabetes Current Visit: Yes Status: Chronic (7) HTN (hypertension) Current Visit: Yes Status: Chronic (8) History of coronary artery bypass graft Current Visit: Yes Status: Chronic (9) Morbid obesity Current Visit: Yes Status: Chronic (10) PAD (peripheral artery disease) Current Visit: Yes Status: Chronic (11) Paroxysmal atrial fibrillation Current Visit: Yes Status: Chronic (12) SSS (sick sinus syndrome) Current Visit: Yes Status: Chronic Subjective Date of service: 07/02/19 Principal diagnosis: Acute Hypoxemic Respiratory Failure; Interval history: The patient is lying in bed in [facility]. She reports feeling better and was able to ambulate to the bathroom. Telemetry reviewed - paced rhythm in 60s. Objective Last Vital Signs Temp 98.3 F 07/02/19 05:19 Pulse 79 07/02/19 07:47 Resp 18 07/02/19 07:47 BP 116/62 07/02/19 04:41 Pulse Ox 98 07/02/19 04:41 - Physical Examination General: No Apparent Distress HEENT: Positive: PERRL, Normocephaly, Mucus Membranes Moist Neck: Positive: neck supple, trachea midline Cardiac: Positive: Reg Rate and Rhythm Lungs: Positive: Decreased Breath Sounds Neuro: Positive: Grossly Intact Abdomen: Positive: Tender, Other (c/o constipation ) /Rectal: Other (deferred) Skin: Negative: Rash Musculoskeletal: No Pain Extremities: Present: normal - Labs and Meds Comprehensive Metabolic Panel 07/02/19 Range/Units 03:57 Sodium 137 (137-145) mmol/L Potassium 4.6 (3.6-5.0) mmol/L Chloride 100.4 (98-107) mmol/L Carbon Dioxide 21 L (22-30) mmol/L BUN 27 H (7-17) mg/dL Creatinine 1.6 H (0.7-1.2) mg/dL Glucose 115 H (65-100) mg/dL Calcium 8.7 (8.4-10.2) mg/dL - Imaging and Cardiology EKG: report reviewed, image reviewed Echo: pending, report reviewed (08/2016 showed EF 55-60%, mild LVH, LA mildly dilated, mild MR, trace TR, RVSP 20-25mmHg. ) - EKG Sinus rhythms and dysrhythmias: sinus rhythm
[2019-07-02] MEDS: FLUCONAZOLE 100 MG TAB PO SCH (11:05)
[2019-07-02] MEDS: DABIGATRAN 150 MG CAP PO SCH (11:06)
[2019-07-02] MEDS: ASPIRIN 81 MG TAB CHEW PO SCH (11:06)
[2019-07-02] MEDS: PANTOPRAZOLE 40 MG TAB PO SCH (11:07)
[2019-07-02] MEDS: DOCUSATE SODIUM 100 MG CAP PO SCH (11:07)
[2019-07-02] MEDS: AMIODARONE 200 MG TAB PO SCH (11:07)
[2019-07-02] MEDS: METOPROLOL TARTRATE 50 MG TAB PO SCH (11:07)
[2019-07-02] MEDS: FERROUS SULFATE 325 MG TAB PO SCH (11:17)
[2019-07-02] MEDS: LINAGLIPTIN 5 MG TAB PO SCH (11:18)
[2019-07-02] MEDS: guaiFENesin ER 600 MG TAB PO SCH (11:18)
[2019-07-02] MEDS: POLYETHYLENE GLYCOL 3350 17 GM POWDER PO SCH (11:18)
--- NOTE | 2019-07-02 11:37 | Progress Note ---
Assessment and Plan 1. Acute kidney injury: Likely vasomotor JODI superimposed on CKD. UA is bland. Renal US was negative for hydronephrosis. Renal function is slightly better and stable. Monitor renal function. Avoid nephrotoxic agents. Meds dosage based on GFR. 2. FEN: Hyperkalemia, improved. Metabolic acidosis, improving. Monitor lytes. 3. Acute bronchitis. 4. A.fib: On Pradaxa. 5. DM-2. 6. Hypertension: Monitor BP. 7. Normochromic Anemia: POA. 8. Odynophagia: EGD showed stomach ulcer and ?esophageal candidiasis. F/u with me in 1-2 weeks. Examination: General appearance: well-developed, well-nourished, appears stated age, obese, no distress HEENT: ATNC, GERALD, hearing intact, vision intact Neck: neck supple, trachea midline Respiratory: Clear to Ascultation Heart: S1S2, no murmurs Gastrointestinal: nnormoactive bowel sounds, obese, not tender Integumentary: no rash, warm and dry Neurologic: no focal deficit, no asterixis Ext: no edema Psychiatric: cooperative Subjective Date of service: 07/02/19 Principal diagnosis: Acute Hypoxemic Respiratory Failure; Interval history: Patient was seen and examined at the bedside. Doing ok. Objective - Vital Signs Vital signs: Vital Signs - 12hr 07/02/19 07/02/19 07/02/19 00:38 02:47 04:41 Temperature Pulse Rate 63 63 Pulse Rate [ 71 Bilateral] Respiratory 20 20 Rate Respiratory 18 Rate [Bilateral ] Blood Pressure 114/43 116/62 O2 Sat by Pulse 96 98 Oximetry 07/02/19 07/02/19 07/02/19 05:19 07:47 11:07 Temperature 98.3 F Pulse Rate 63 Pulse Rate [ 79 Bilateral] Respiratory Rate Respiratory 18 Rate [Bilateral ] Blood Pressure O2 Sat by Pulse Oximetry - Lab 06/27/19 04:13 07/02/19 03:57 Most recent lab results Calcium 8.7 mg/dL (8.4-10.2) 07/02/19 03:57 Phosphorus 4.20 mg/dL (2.5-4.5) 06/29/19 06:58 Magnesium 2.20 mg/dL (1.7-2.3) 06/29/19 06:58 Urine Creatinine 40.1 mg/dL (0.1-20.0) H 06/28/19 Unknown Urine Sodium 67 mmol/L 06/28/19 Unknown Medications & Allergies - Medications Allergies/Adverse Reactions: Allergies gabapentin Allergy (Verified 08/17/16 17:53) Unknown Home Medications: Home Medications Medication Instructions Recorded Confirmed Last Taken Type Aspirin [Aspirin BABY CHEW TAB] 81 mg PO QDAY #30 tab.chew 05/04/16 06/27/19 06/26/19 Rx 81 mg Dabigatran [Pradaxa] 150 mg PO BID #60 capsule 05/04/16 06/27/19 06/25/19 Rx 150 mg Colchicine [Colcrys] 0.6 mg PO BID #10 tablet 06/05/16 06/27/19 06/26/19 Rx 0.6mg Amiodarone [Cordarone 200 MG TAB] 200 mg PO DAILY 30 Days tablet 08/20/16 06/27/19 06/25/19 Rx 200 mg Evolocumab [Repatha Syringe] 140 mg SUB-Q Q15D 06/26/19 06/27/19 Unknown History Metoprolol [Lopressor TAB] 25 mg PO BID 06/26/19 06/27/19 06/25/19 History 25 mg Fluconazole [Diflucan TAB] 100 mg PO QDAY #5 tablet 07/02/19 Unknown Rx Furosemide [Lasix TAB] 40 mg PO BID #60 tablet 07/02/19 Unknown Rx HYDROcodone/APAP 5-325 [[place] 1 each PO Q4H PRN #14 tablet 07/02/19 Unknown Rx 5-325 mg TAB] Linagliptin [Tradjenta] 5 mg PO QDDIAB #30 tablet 07/02/19 Unknown Rx Pantoprazole [Protonix TAB] 40 mg PO DAILY #30 tablet 07/02/19 Unknown Rx Active Medications: Generic Name Dose Route Start Last Admin Trade Name Freq PRN Reason Stop Dose Admin Acetaminophen 650 mg 06/26/19 02:20 06/27/19 06:37 Tylenol PO 650 mg Q4H PRN Administration Pain MILD(1-3)/Fever >100.5/MCCALL Acetaminophen/Hydrocodone Bitart 1 each 06/26/19 15:00 07/01/19 05:14 [place] 5/325 PO 1 each Q4H PRN Administration Pain, Moderate (4-6) Albuterol/Ipratropium 1 ampul 06/26/19 20:00 07/02/19 07:48 Duoneb *Not For Prn Use* IH Not Given Q6HRT IVETTE Amiodarone HCl 200 mg 06/26/19 10:00 07/02/19 11:07 Cordarone PO 200 mg DAILY IVETTE Administration Arformoterol Tartrate 15 mcg 06/26/19 20:00 07/02/19 07:46 Broleeroy Whitman IH 15 mcg Q12HRT IVETTE Administration Aspirin 81 mg 06/26/19 10:00 07/02/19 11:06 Baby Aspirin PO 81 mg QDAY IVETTE Administration Bismuth Subsalicylate 262 mg 06/28/19 13:04 06/28/19 14:40 Pepto Bismol PO 262 mg Q6H PRN Administration Indigestion Dabigatran 150 mg 06/26/19 10:00 07/02/19 11:06 Pradaxa PO 150 mg BID IVETTE Administration Protocol Dextrose 50 ml 06/26/19 02:20 D50w (25gm) Syringe IV Q30MIN PRN Hypoglycemia Protocol Docusate Sodium 100 mg 06/26/19 10:00 07/02/19 11:07 Colace PO 100 mg BID IVETTE Administration Ferrous Sulfate 325 mg 06/28/19 14:00 07/02/19 11:17 Feosol PO 325 mg TID IVETTE Administration Fluconazole 100 mg 06/30/19 17:00 07/02/19 11:05 Diflucan PO 07/06/19 10:01 100 mg QDAY IVETTE Administration Furosemide 40 mg 06/30/19 08:30 07/02/19 06:40 Lasix IV 40 mg 0600,1800 IVETTE Administration Guaifenesin 600 mg 06/26/19 10:00 07/02/19 11:18 Mucinex Er PO 600 mg BID IVETTE Administration Sodium Chloride 1,000 mls @ 125 mls/hr 06/26/19 13:00 06/29/19 05:51 Nacl 0.9% 1000 Ml IV 125 mls/hr DIRECT IVETTE Administration Sodium Chloride 1,000 mls @ 50 mls/hr 06/30/19 15:29 06/30/19 15:45 Nacl 0.9% 1000 Ml IV 50 mls/hr DIRECT IVETTE Administration Linagliptin 5 mg 07/01/19 13:00 07/02/19 11:18 Tradjenta PO 5 mg QDDIAB IVETTE Administration Metoprolol Tartrate 25 mg 06/26/19 10:00 07/02/19 11:07 Metoprolol PO 25 mg BID IVETTE Administration Morphine Sulfate 2 mg 06/27/19 10:10 06/30/19 11:46 Morphine IV 2 mg Q4H PRN Administration Pain , Severe (7-10) Pantoprazole Sodium 40 mg 07/01/19 10:00 07/02/19 11:07 Protonix PO 40 mg DAILY IVETTE Administration Polyethylene Glycol 17 gm 06/28/19 14:00 07/02/19 11:18 Miralax 3350 PO Not Given QDAY IVETTE Simethicone 80 mg 06/26/19 11:03 06/26/19 22:30 Mylicon PO 80 mg Q6H PRN Administration Gas pain Sodium Chloride 10 ml 06/26/19 10:00 07/02/19 11:19 Sodium Chloride Flush Syringe 10 Ml IV 10 ml BID IVETTE Administration Sodium Chloride 10 ml 06/26/19 02:20 06/27/19 01:58 Sodium Chloride Flush Syringe 10 Ml IV 10 ml PRN PRN Administration LINE FLUSH
== END 2019-07-02 12:30 | disposition home or self-care (01) | DRG 291 ==
LOC: ED 18:37 → 4A 06-26 03:43 → INTOOBSV 06-26 03:43 → UNDOADMOB 06-26 03:43 → INTOOBSV 06-26 11:33 → OBSVTOIN 06-26 11:33 → 4A 06-27 11:32
PROVIDERS: ADMIT Internal Medicine; ATTEND Internal Medicine
PROC: 3E0234Z Introduction of Serum, Toxoid and Vaccine into Muscle, Percutaneous Approach (ICD-10-PCS; principal; 2019-06-29)
PROC: 0DB38ZX Excision of Lower Esophagus, Via Natural or Artificial Opening Endoscopic, Diagnostic (ICD-10-PCS; 2019-06-30)
PROC: 0DB68ZX Excision of Stomach, Via Natural or Artificial Opening Endoscopic, Diagnostic (ICD-10-PCS; 2019-06-30)
PROC: 0D758ZZ Dilation of Esophagus, Via Natural or Artificial Opening Endoscopic (ICD-10-PCS; 2019-06-30)
PROC: 4A033R1 Measurement of Arterial Saturation, Peripheral, Percutaneous Approach (ICD-10-PCS; 2019-07-01)
DX: I13.0 Hypertensive heart and chronic kidney disease with heart failure and stage 1 through stage 4 chronic kidney disease, or unspecified chronic kidney disease (principal); I50.33 Acute on chronic diastolic (congestive) heart failure; J96.00 Acute respiratory failure, unspecified whether with hypoxia or hypercapnia; N17.9 Acute kidney failure, unspecified; E87.2 Acidosis; Z68.41 Body mass index [BMI] 40.0-44.9, adult; D68.59 Other primary thrombophilia; D64.9 Anemia, unspecified; E87.5 Hyperkalemia; E66.01 Morbid (severe) obesity due to excess calories; Z71.3 Dietary counseling and surveillance; I25.10 Atherosclerotic heart disease of native coronary artery without angina pectoris; I49.5 Sick sinus syndrome; E78.5 Hyperlipidemia, unspecified; M10.9 Gout, unspecified; M19.90 Unspecified osteoarthritis, unspecified site; N18.9 Chronic kidney disease, unspecified; K21.0 Gastro-esophageal reflux disease with esophagitis; E11.65 Type 2 diabetes mellitus with hyperglycemia; I48.0 Paroxysmal atrial fibrillation; K44.9 Diaphragmatic hernia without obstruction or gangrene; E11.51 Type 2 diabetes mellitus with diabetic peripheral angiopathy without gangrene; E11.22 Type 2 diabetes mellitus with diabetic chronic kidney disease; G47.33 Obstructive sleep apnea (adult) (pediatric); Z95.5 Presence of coronary angioplasty implant and graft; Z95.0 Presence of cardiac pacemaker; Z79.82 Long term (current) use of aspirin; Z79.84 Long term (current) use of oral hypoglycemic drugs; Z79.899 Other long term (current) drug therapy; Z88.6 Allergy status to analgesic agent; Z86.73 Personal history of transient ischemic attack (TIA), and cerebral infarction without residual deficits; Z90.710 Acquired absence of both cervix and uterus; Z79.01 Long term (current) use of anticoagulants
CPT/HCPCS: 36415; 36600; 71045; 74220; 76700; 80048; 81001; 82550; 82553; 82570; 82607; 82747; 82803; 82962; 83036; 83550; 83735; 83970; 84100; 84300; 84484; 85007; 85025; 85379; 88305; 88312; 88342; 89050; 90670; 90686; 93005; 93010; 93306; 93970; 94640; 94644; 94760; 96365; 96375; G0378; C9113; J0456; J1815; J1940; J2250; J2270; J2704; J2930; J3475; J7030; J7050; J7512